=== PATIENT | female | born 1935 | race Caucasian/White ===

== ENCOUNTER 2017-06-01 12:24 | Observation (INO) | payer MEDICARE, MEDICAID ==
[2017-06-01 12:24] VITALS: BMI 20.1
[2017-06-01] MEDS ORDERED: Sodium Chloride 0.9% 500 ML IV STA ×2 (12:53→14:48)
--- NOTE | 2017-06-01 12:53 | ED PDOC ---
Hyperglycemia/Hypoglycemia Time Seen by Provider: 06/01/17 12:45 Chief Complaint (Nursing): High Blood Sugar Chief Complaint (Provider): High blood sugar History Per: Patient History/Exam Limitations: no limitations Onset/Duration Of Symptoms: Days (1 week) : The patient does not have any of the infectious symptoms listed except for those marked. Additional Complaint(s): Pt. with high blood sugar for 1 week. 1 week ago her managed care analyst reduced her januvia and increased the insulin. Since then the sugar has been elevated. Today it was 416 so she came to the ED. Had cough yesterday with clear phlegm. No dyspnea, weakness, headaches, dizziness, fever, chest pain, nausea, vomit, diarrhea, dysuria. No back pain. Chronically uses walker to move around as legs are weak. No increased urination or drinking more water. Past Medical History Reviewed: Nursing Documentation, Vital Signs Vital Signs: Last Vital Signs Temp 99 F 06/01/17 12:26 Pulse 64 06/01/17 12:26 Resp 20 06/01/17 12:26 BP 127/66 06/01/17 12:26 Pulse Ox 94 L 06/01/17 12:26 - Medical History PMH: Diabetes, HTN, Hypercholesterolemia Denies: HIV - Surgical History Surgical History: No Surg Hx - Family History Family History: States: Unknown Family Hx - Living Arrangements Living Arrangements: With Family - Social History Current smoker - smoking cessation education provided: No Alcohol: None Drugs: Denies - Home Medications Home Medications: Ambulatory Orders Medication Instructions Recorded Carvedilol [Coreg] 3.125 mg PO BID PRN 12/06/15 Furosemide [Lasix] 10 tab PO TUTHSA 12/06/15 Hydralazine HCl [Hydralazine HCl] 12.5 mg PO BID PRN 12/06/15 Insulin Glargine, Recombina 14 unit SC HS 12/06/15 [Lantus] Isosorbide Mononitrate [Imdur] 30 mg PO DAILY 12/06/15 Aspirin [Ecotrin] 81 mg PO DAILY 06/01/17 Cholecalciferol [Vitamin D 1000 IU] 1,000 unit PO DAILY 06/01/17 Ferrous Sulfate [Feosol] 325 mg PO MWF 06/01/17 Insulin Human Regular [Novolin R] 2 - 4 unit SC AC PRN 06/01/17 Megestrol Acetate [Megace] 10 ml PO DAILY 06/01/17 SITagliptin [Januvia] 100 mg PO DAILY 06/01/17 - Allergies Allergies/Adverse Reactions: Allergies Allergy/AdvReac Type Severity Reaction Status Date / Time ampicillin Allergy RASH Verified 12/06/15 06:03 Penicillins Allergy RASH Verified 12/06/15 06:03 Review of Systems ROS Statement: Except As Marked, All Systems Reviewed And Found Negative Respiratory: Positive for: Cough, Sputum Physical Exam - Reviewed Nursing Documentation Reviewed: Yes Vital Signs Reviewed: Yes - Physical Exam Appears: Positive for: Non-toxic, No Acute Distress Head Exam: Positive for: ATRAUMATIC, NORMAL INSPECTION, NORMOCEPHALIC Skin: Positive for: Normal Color, Warm, DRY Eye Exam: Positive for: EOMI, Normal appearance, PERRL ENT: Positive for: Normal ENT Inspection. Negative for: Nasal Congestion, Pharyngeal Erythema, Tonsillar Exudate Neck: Positive for: Normal, Painless ROM, Supple Cardiovascular/Chest: Positive for: Regular Rate, Rhythm Respiratory: Positive for: Normal Breath Sounds. Negative for: Accessory Muscle Use, Wheezing, Respiratory Distress Gastrointestinal/Abdominal: Positive for: Normal Exam, Bowel Sounds, Soft. Negative for: Tenderness Back: Positive for: Normal Inspection. Negative for: L CVA Tenderness, R CVA Tenderness Extremity: Positive for: Normal ROM. Negative for: Tenderness, Pedal Edema Neurologic/Psych: Positive for: Alert, fabricating machine operator II-XII, Oriented. Negative for: Motor/Sensory Deficits, Facial Droop - Laboratory Results Result Diagrams: 06/01/17 13:55 06/01/17 13:55 Interpretation Of Abn Labs: 15 wbc, 343 glucose, 93 chloride, 124 na - ECG ECG: Positive for: Interpreted By Me, Viewed By Me ECG Rhythm: Positive for: Nonspecific Changes O2 Sat by Pulse Oximetry: 94 - Radiology X-Ray: Read By Radiologist X-Ray Interpretation: No Acute Disease - Progress ED Course And Treament: 1554: Spoke with Dr. Montanez. Will admit tele. Pt. with clinical pneumonia. Similar presentation as last. Disposition - Clinical Impression Clinical Impression: Hyperglycemia, Pneumonia - Patient ED Disposition Is Patient to be Admitted: Yes Counseled Patient/Family Regarding: Studies Performed, Diagnosis - Disposition Disposition Time: 15:55 Condition: FAIR - Pt Status Changed To: Hospital Disposition Of: Inpatient - Admit Certification Admit to Inpatient:: After my assessment, the patient will require hospitalization for at least two midnights. This is because of the severity of symptoms shown, intensity of services needed, and/or the medical risk in this patient being treated as an outpatient. - POA Present On Arrival: Poor Glycemic Control Core Measure Indicators: Pneumonia
[2017-06-01 14:01] LABS: BASO # 0.1 K/uL (0.0-0.2); BASO % 0.9 % (0.0-2.0); EOS # 0.6 K/uL (0.0-0.7); EOS % 3.8 % (0.0-4.0); HEMOGLOBIN 12.3 g/dL (12.0-16.0); LYMPH # 2.5 K/uL (1.0-4.3); LYMPH % 16.8 % (20.0-40.0); MEAN CELL VOLUME 82.1 fl (81.0-99.0); MEAN CORPUSCULAR HEMOGLOBIN 26.6 pg (27.0-31.0); MEAN CORPUSCULAR HGB CONC 32.4 g/dL (33.0-37.0); MEAN PLATELET VOLUME 8.4 fl (7.2-11.7); MONO # 0.5 K/uL (0.0-0.8); MONO % 3.5 % (0.0-10.0); NEUT # 11.2 K/uL (1.8-7.0); RBC 4.64 Mil/uL (3.80-5.20); RED CELL DISTRIBUTION WIDTH 15.1 % (11.5-14.5)
[2017-06-01 14:12] LABS: ALB/GLOB RATIO 1.1 (1.0-2.1); ALBUMIN 3.5 g/dL (3.5-5.0); ALT/SGPT 35 U/L (9-52); AST/SGOT 19 U/L (14-36); BLOOD UREA NITROGEN 19 mg/dl (7-17); CALCIUM 9.2 mg/dL (8.4-10.2); GFR AFRICAN-AMERICAN > 60; GFR NON-AFRICAN AMERICAN 60
[2017-06-01 14:24] LABS: B-TYPE NATRIURETIC PEPTIDE 458 pg/ml (0-900)
--- NOTE | 2017-06-01 14:29 | RAD ---
HISTORY: dyspnea COMPARISON: No prior. FINDINGS: LUNGS: Note that the examination is slightly limited due to kyphotic patient positioning and/or kyphotic tube angulation. Poor inspiration with low lung volumes, crowded bronchovascular markings and mild bibasilar atelectasis. PLEURA: No significant pleural effusion identified, no pneumothorax apparent. CARDIOVASCULAR: Normal. OSSEOUS STRUCTURES: No significant abnormalities. VISUALIZED UPPER ABDOMEN: Normal. OTHER FINDINGS: None. IMPRESSION: Slightly limited study as described. Poor inspiration with low lung volumes, crowded bronchovascular markings and mild bibasilar atelectasis.
[2017-06-01] MEDS ORDERED: Aztreonam 1 GM in Sodium Chloride 0.9% 100 ML IVPB STA (14:49)
[2017-06-01] MEDS ORDERED: Vancomycin 1 g Inj ONE (15:01)
[2017-06-01] MEDS ORDERED: Albuterol-Ipratrop 3 mg / 0.5 (3 ml) UD INH STA (15:01)
[2017-06-01] MEDS ORDERED: Albuterol-Ipratrop 3 mg / 0.5 (3 ml) UD IH STA (15:01)
[2017-06-01 15:38] LABS: VENOUS BLOOD GAS BASE EXCESS 0.3 mmol/L (0.0-2.0); VENOUS BLOOD GAS PCO2 45 mmHg (40-60); VENOUS BLOOD GAS PO2 39 mm/Hg (30-55); VENOUS BLOOD PH 7.37 (7.32-7.43)
[2017-06-01] MEDS ORDERED: Albuterol-Ipratrop 3 mg / 0.5 (3 ml) UD ONE (15:44)
--- NOTE | 2017-06-01 16:14 | CP.PCM.HP ---
History of Present Illness - History of Present Illness History of Present Illness: Hospitalist Admission H&P ( Patient was seen and examined in the ER Bed #16 with Daughter Kandy [phone] present and who helped to translate in Georgian) PMD: Dr. Benitez CODE STATUS: DO NOT INTUBATE but Resuscitate. NO living well/advance directive. Designates Sara Gaitan [phone] as health care proxy and Kandy is also Power of Audio Visual Secretary CHIEF COMPLAINT: Cough and High Blood Sugars Very pleasant 81 year Georgian speaking female (PMHx: DM 2, HTN, Anemia, Pneumonia, Bowel Obstruction, Hyponatremia) who presents via ambulance with chief complaint of cough and high blood glucose. Daughter Kandy explains that patient kept on coughing last night and produced clear phlegm however was able to get to sleep and stay a sleep through the night. Then this morning she measured her fasting blood glucose at 462 (normally it is in the 150s fasting and 200s in the afternoons). Kandy explains that as patient had a similar episode in the past for which she was admitted to this institution from through 08/19/15 for pneumonia, she became concerned and called the ambulance to bring patient here. Currently upon FULL ROS there is NO chest pain, NO palpitations, NO SOB but there is complain of (+)Cough that is nonproductive, NO dysphagia/odynophagia, NO abdominal pain, NO n/v/d/c, NO burning/pain with urination, NO headache, NO new changes in vision/loss of vision/eye pain, NO new changes in hearing/ear pain/loss of hearing, NO paresthesias, NO edema PMHx: DM 2, HTN, Anemia, Pneumonia, Bowel Obstruction, Hyponatremia, Bowel Obstruction, Requires Walker at home to get around, Wears a Diaper but has control of bowel/bladder PSHx: Left Ankle Orthopedic Surgery with Hardware present, Colostomy with reversal for Bowel Obstruction (2010) ALL: Ampicillin, PCN Medications: Please see medical reconciliation Social Hx: Lives with , NO alcohol, NO tobacco, NO illicit drugs Family Hx: DM in multiple family members Present on Admission - Present on Admission Any Indicators Present on Admission: Yes History of DVT/PE: No History of Uncontrolled Diabetes: No Urinary Catheter: No Decubitus Ulcer Present: No (Checked with ER Nurse) Review of Systems - Review of Systems Review of Systems: Please see above Past Patient History - Infectious Disease Hx of Infectious Diseases: None - Past Medical History & Family History Past Medical History?: Yes Pertinent Family History: Please see above - Past Social History Alcohol: None Drugs: Denies - CARDIAC Hx Hypercholesterolemia: Yes Hx Hypertension: Yes - ENDOCRINE/METABOLIC Hx Diabetes Mellitus Type 2: Yes - HEMATOLOGICAL/ONCOLOGICAL Hx Human Immunodeficiency Virus (HIV): No - MUSCULOSKELETAL/RHEUMATOLOGICAL Hx Falls: No - GENITOURINARY/GYNECOLOGICAL Hx Incontinence: Yes - PSYCHIATRIC Hx Substance Use: No - SURGICAL HISTORY Hx Section: Yes Hx Cholecystectomy: Yes - ANESTHESIA Hx Anesthesia: Yes Hx Anesthesia Reactions: No Hx Malignant Hyperthermia: No Meds Allergies/Adverse Reactions: Allergies Allergy/AdvReac Type Severity Reaction Status Date / Time ampicillin Allergy RASH Verified 12/06/15 06:03 Penicillins Allergy RASH Verified 12/06/15 06:03 Physical Exam - Constitutional Appears: Non-toxic, No Acute Distress - Head Exam Head Exam: ATRAUMATIC, NORMAL INSPECTION, NORMOCEPHALIC - Eye Exam Eye Exam: EOMI, Normal appearance, PERRL Pupil Exam: NORMAL ACCOMODATION, PERRL - ENT Exam ENT Exam: Mucous Membranes Dry Additional comments: Oral Mucosa and Nasal Turbinates are dry Skin tenting of the arms NO lymphadenopathy NO thyromegaly NO pharyngeal erythema/exudate Nasal Turbinates are not erythematous/edematous - Neck Exam Neck exam: Positive for: Normal Inspection - Respiratory Exam Additional comments: Bilateral Lower Lobe Inspiratory Rales - Cardiovascular Exam Cardiovascular Exam: +S1, +S2, Systolic Murmur Additional comments: Early Systolic Ejection murmur heard in all of the brow[place] - GI/Abdominal Exam GI & Abdominal Exam: Normal Bowel Sounds, Soft Additional comments: BSx4, Soft, NT, ND, NO HSM, NO guarding/rebound tenderness - Extremities Exam Extremities exam: Positive for: normal capillary refill, normal inspection Additional comments: NO edema Capillary Refill is 2 seconds Pulses are strong and equal - Neurological Exam Neurological exam: CN II-XII Intact - Skin Additional comments: Multiple bruises in the bilateral lower arms and legs Venous insufficiency brown color change of the bilateral lower legs Multiple SKs on the face Right Cheek shallow circular ulcerated skin lesion present for many years as per Daughter Bridge of nose verrucous lesion also present for some time as per Daughter NO evidence of ulcers on any of the leola prominences/sacrum: checked with ER Nurse present Results - Vital Signs Recent Vital Signs: Last Vital Signs Temp 99 F 06/01/17 12:26 Pulse 64 06/01/17 12:26 Resp 20 06/01/17 12:26 BP 127/66 06/01/17 12:26 Pulse Ox 94 L 06/01/17 15:55 - Labs Result Diagrams: 06/01/17 13:55 06/01/17 13:55 Assessment & Plan (1) Pneumonia Assessment and Plan: Although not indicated in Chest X Ray (limited due to patient's kyphosis), I believe clinically this patient has Pneumonia Bilaterally considering the respiratory exam Aztreonam 1 gm IV Q8H Azithromycin 500 mg IV Q24H Duoneb Q6H PRN SOB Guaifenesin/Dextromethorphan 10 ml PO Q6H PRN cough F/U Blood Culture F/U Urine Culture F/U Rapid Influenza F/U Rapid Strep F/U Urine Legionell Ag F/U Urine S. pneumoniae Ag F/U Mycoplasma IgG and IgM Status: Acute (2) Hyperglycemia due to type 2 diabetes mellitus Assessment and Plan: Patient had Blood Glucose in the 400s upon arrival in the ER There was NO acidosis Continuie home dose of Lantus 14 units SC QHS, Januvia 100 mg PO 1x/day (AM) Regular Insulin Sliding Scale High Dose with Accuchecks F/U HgBA1C Status: Acute (3) Hyponatremia Assessment and Plan: Currently Na at 124 She is not any on medications that could cause this Considering the dry mucous membranes and skin tenting could be secondary to volume depletion Therefore hydrate with NS at 50 ml per hour and follow Na level with morning labs for now Status: Acute (4) Hypertension Assessment and Plan: Coreg 3.125 mg PO 2x/day Hydralazine 12.5 mg PO 2x/day Imdur 30 mg PO 1x/day Status: Chronic (5) Anemia Assessment and Plan: Hx Anemia likely secondary to Iron Deficiency considering RBC indices Continue Ferrous Sulfate 325 mg PO Monitor HgB/Hct which is currently WNL Status: Chronic (6) Prophylactic measure Assessment and Plan: ASA 81 mg PO 1x/day Megace 10 mg PO 1x/day Vitamin D3 1,000 units PO 1x/day Protonix 40 mg PO 1x/day Lovenox 30 mg SC 1x/day Florastor 250 mg PO 2x/day F/U morning 06/02/17 labs Status: Acute
[2017-06-01] MEDS ORDERED: Albuterol-Ipratrop 3 mg / 0.5 (3 ml) UD INH PRN (16:15)
[2017-06-01] MEDS ORDERED: guaiFENesin DM 200 mg-20 mg/10 ml UD PO PRN (16:20)
[2017-06-01] MEDS ORDERED: Sodium Chloride 0.9% 1,000 ML IV SCH (16:30)
[2017-06-01] MEDS: Insulin Regular 100 units/ml SC SCH ×2 (16:40→22:04)
[2017-06-01] MEDS: Azithromycin 500 MG in Sodium Chloride 0.9% 250 ML IVPB SCH (20:38)
[2017-06-01] MEDS ORDERED: Pneumococcal 23-Valent Vaccine IM ONE (21:00)
[2017-06-01] MEDS: Saccharomyces Boulardi 250 mg Cap PO SCH (22:00)
[2017-06-01] MEDS ORDERED: Insulin Detemir 100 Units/ml Inj SC SCH (22:00)
[2017-06-02] MEDS: Aztreonam 1 GM in Sodium Chloride 0.9% 100 ML IVPB SCH ×2 (00:37→06:34)
[2017-06-02] MEDS: Insulin Regular 100 units/ml SC SCH ×2 (06:35→11:57)
[2017-06-02 07:03] LABS: BASO % 0.1 % (0.0-2.0); EOS % 0.2 % (0.0-4.0); HEMOGLOBIN 13.5 g/dL (12.0-16.0); LYMPH # 1.7 K/uL (1.0-4.3); LYMPH % 12.3 % (20.0-40.0); MEAN CELL VOLUME 82.8 fl (81.0-99.0); MEAN CORPUSCULAR HEMOGLOBIN 26.8 pg (27.0-31.0); MEAN CORPUSCULAR HGB CONC 32.4 g/dL (33.0-37.0); MEAN PLATELET VOLUME 8.3 fl (7.2-11.7); MONO # 0.2 K/uL (0.0-0.8); MONO % 1.6 % (0.0-10.0); NEUT # 11.7 K/uL (1.8-7.0); NEUT % 85.8 % (50.0-75.0); RBC 5.02 Mil/uL (3.80-5.20); RED CELL DISTRIBUTION WIDTH 15.5 % (11.5-14.5); WHITE BLOOD COUNT 13.6 K/uL (4.8-10.8)
[2017-06-02 07:06] LABS: ALB/GLOB RATIO 1.1 (1.0-2.1); ALBUMIN 3.9 g/dL (3.5-5.0); ALT/SGPT 34 U/L (9-52); AST/SGOT 21 U/L (14-36); BLOOD UREA NITROGEN 18 mg/dl (7-17); CALCIUM 9.5 mg/dL (8.4-10.2); GFR AFRICAN-AMERICAN > 60; GFR NON-AFRICAN AMERICAN > 60; HDL CHOLESTEROL 62 MG/DL (30-70); MAGNESIUM 1.7 MG/DL (1.6-2.3)
[2017-06-02 07:17] LABS: LDL CHOLESTEROL 103 mg/dL (0-129)
[2017-06-02 07:23] LABS: T4 9.12 ug/dl (5.5-11.0)
--- NOTE | 2017-06-02 08:52 | CP.PCM.DIS ---
Provider - Provider Date of Admission: 06/01/17 15:55 Attending physician: Eliseo Montanez MD Primary care physician: Dr. Samson Time Spent in preparation of Discharge (in minutes): 20 Hospital Course - Lab Results Lab Results: Most Recent Lab Values WBC 13.6 K/uL (4.8-10.8) H 06/02/17 05:30 RBC 5.02 Mil/uL (3.80-5.20) 06/02/17 05:30 Hgb 13.5 g/dL (12.0-16.0) 06/02/17 05:30 Hct 41.6 % (34.0-47.0) 06/02/17 05:30 MCV 82.8 fl (81.0-99.0) 06/02/17 05:30 MCH 26.8 pg (27.0-31.0) L 06/02/17 05:30 MCHC 32.4 g/dL (33.0-37.0) L 06/02/17 05:30 RDW 15.5 % (11.5-14.5) H 06/02/17 05:30 Plt Count 272 K/uL (130-400) 06/02/17 05:30 MPV 8.3 fl (7.2-11.7) 06/02/17 05:30 Neut % (Auto) 85.8 % (50.0-75.0) H 06/02/17 05:30 Lymph % (Auto) 12.3 % (20.0-40.0) L 06/02/17 05:30 [place] % (Auto) 1.6 % (0.0-10.0) 06/02/17 05:30 Eos % (Auto) 0.2 % (0.0-4.0) 06/02/17 05:30 Baso % (Auto) 0.1 % (0.0-2.0) 06/02/17 05:30 Neut # 11.7 K/uL (1.8-7.0) H 06/02/17 05:30 Lymph # 1.7 K/uL (1.0-4.3) 06/02/17 05:30 [place] # 0.2 K/uL (0.0-0.8) 06/02/17 05:30 Eos # 0.0 K/uL (0.0-0.7) 06/02/17 05:30 Baso # 0.0 K/uL (0.0-0.2) 06/02/17 05:30 pO2 39 mm/Hg (30-55) 06/01/17 15:36 VBG pH 7.37 (7.32-7.43) 06/01/17 15:36 VBG pCO2 45 mmHg (40-60) 06/01/17 15:36 VBG HCO3 24.6 mmol/L 06/01/17 15:36 VBG Total CO2 27.4 mmol/L (22-28) 06/01/17 15:36 VBG O2 Sat (Calc) 78.9 % (40-65) H 06/01/17 15:36 VBG Base Excess 0.3 mmol/L (0.0-2.0) 06/01/17 15:36 VBG Potassium 4.5 mmol/L (3.6-5.2) 06/01/17 15:36 Sodium 126.0 mmol/L (132-148) L 06/01/17 15:36 Chloride 96.0 mmol/L (98-107) L 06/01/17 15:36 Glucose 275 mg/dL (65-105) H 06/01/17 15:36 Lactate 1.1 mmol/L (0.7-2.1) 06/01/17 15:36 FiO2 21.0 % 06/01/17 15:36 Sodium 134 mmol/l (132-148) 06/02/17 05:30 Potassium 4.6 MMOL/L (3.6-5.0) 06/02/17 05:30 Chloride 100 mmol/L (98-107) 06/02/17 05:30 Carbon Dioxide 22 mmol/L (22-30) 06/02/17 05:30 Anion Gap 17 (10-20) 06/02/17 05:30 BUN 18 mg/dl (7-17) H 06/02/17 05:30 Creatinine 0.7 mg/dL (0.7-1.2) 06/02/17 05:30 Est GFR ( Amer) > 60 06/02/17 05:30 Est GFR (Non-Af Amer) > 60 06/02/17 05:30 POC Glucose (mg/dL) 261 mg/dL (65-110) H 06/02/17 05:46 Random Glucose 241 mg/dL (65-105) H 06/02/17 05:30 Calcium 9.5 mg/dL (8.4-10.2) 06/02/17 05:30 Phosphorus 3.5 mg/dl (2.5-4.5) 06/02/17 05:30 Magnesium 1.7 MG/DL (1.6-2.3) 06/02/17 05:30 Total Bilirubin 0.4 mg/dl (0.2-1.3) 06/02/17 05:30 AST 21 U/L (14-36) 06/02/17 05:30 ALT 34 U/L (9-52) 06/02/17 05:30 Alkaline Phosphatase 115 U/L (38-126) 06/02/17 05:30 Troponin I < 0.0120 ng/mL (0.00-0.120) 06/01/17 13:55 NT-Pro-B Natriuret Pep 458 pg/ml (0-900) 06/01/17 13:55 Total Protein 7.7 G/DL (6.3-8.2) 06/02/17 05:30 Albumin 3.9 g/dL (3.5-5.0) 06/02/17 05:30 Globulin 3.7 gm/dL (2.2-3.9) 06/02/17 05:30 Albumin/Globulin Ratio 1.1 (1.0-2.1) 06/02/17 05:30 Triglycerides 60 mg/DL (0-149) 06/02/17 05:30 Cholesterol 191 mg/dL (0-199) 06/02/17 05:30 LDL Cholesterol Direct 103 mg/dL (0-129) 06/02/17 05:30 HDL Cholesterol 62 MG/DL (30-70) 06/02/17 05:30 Thyroxine (T4) 9.12 ug/dl (5.5-11.0) 06/02/17 05:30 TSH 3rd Generation 0.39 mIU/ML (0.46-4.68) L 06/02/17 05:30 Venous Blood Potassium 4.5 mmol/L (3.6-5.2) 06/01/17 15:36 Influenza Typ A,B (EIA) Negative for flu a/b (NEGATIVE) 06/01/17 17:50 Grp A Beta Strep Ag Negative (NEGATIVE) 06/01/17 17:50 - Hospital Course Hospital Course: 81 y/o female with PMH significant for DM2 and HTN came in with fasting BS 462 .Per family her BS have been high for the past week since her januvia was decreased and insulin regiment increased by caregiver.As per daughter she had some cough with chest congestion last night with clear phlegm production . She was found to have elevated WBC 15 K Na 124 . CXR showed increased Poor inspiration with low lung volumes, crowded bronchovascular markings and mild bibasilar atelectasis. She was admitted in telemetry with diagnosis of clinical pneumonia , uncontrolled DM and hyponatremia. She was started on IV Zithromax, Azactam , O2 , mucinex. Patient today feeling better and wants to go home. Her Accuchecks better controlled Acc 260 , 241 .She is afebrile , her BP slightly elevated because her Bp meds were not given . Her hyponatremia improved. Patient clinically improved , afebrile, WBC trended down 13.6 , denies any dyspnea or cough. Will discharge patient home on Po [place] for 7 days will increase Lantus to 18 units SQ from 14 units . continue BP meds the same. Patient to follow up with PMD She has home health aid services Wednesday - Wednesday 5 hours / day and Wednesday and wednesday 7 hours 1.Suspected Pneumonia CXR showed crowded bronchovascular markings with some chest congestion and cough WBC was elevated 15 K Given Azactam and Zithromax IV . will d/c on levaquine PO 2.Hyperglycemia due to type 2 diabetes mellitus Patient had Blood Glucose in the 462 There was NO acidosis Given IVF will increase Lantus to 18 units SQ and januvia 100 mg Po daily 3. Hyponatremia Most likely secondary to volume depletion and dehydration Currently Na at 124 given IVF and improved 4. Hypertension labile continue Coreg and hydralazine Coreg 3.125 mg PO 2x/day 5. Anemia Hx Anemia likely secondary to Iron Deficiency considering RBC indices Continue Ferrous Sulfate 325 mg PO -- Discharge Exam - Head Exam Head Exam: ATRAUMATIC, NORMAL INSPECTION, NORMOCEPHALIC - Eye Exam Eye Exam: EOMI, Normal appearance, PERRL Pupil Exam: NORMAL ACCOMODATION - ENT Exam ENT Exam: Normal Exam - Neck Exam Neck exam: Full Rom, Normal Inspection - Respiratory Exam Respiratory Exam: Clear to PA & Lateral, NORMAL BREATHING PATTERN. absent: Rhonchi, Wheezes, Respiratory Distress - Cardiovascular Exam Cardiovascular Exam: REGULAR RHYTHM, RRR, +S1, +S2. absent: JVD - GI/Abdominal Exam GI & Abdominal Exam: Normal Bowel Sounds, Soft. absent: Distended, Guarding, Rebound, Tenderness - Rectal Exam Rectal Exam: Deferred - Extremities Exam Extremities exam: normal capillary refill, normal inspection, pedal pulses present - Back Exam Back exam: NORMAL INSPECTION - Neurological Exam Neurological exam: Alert, CN II-XII Intact, Oriented x3, Reflexes Normal - Psychiatric Exam Psychiatric exam: Normal Affect, Normal Mood - Skin Skin Exam: Dry, Pallor, Warm Additional comments: nasal bridge verrucous lesion left frontal melanoma Bilateral lower extremity multiple echymotic areas Discharge Plan - Discharge Medications Prescriptions: levoFLOXacin [Levaquin] 500 mg PO DAILY #7 tab - Follow Up Plan Condition: STABLE Disposition: HOME/ ROUTINE Patient education suggested?: Yes Instructions: Diabetic Hyperglycemia (DC)
[2017-06-02] MEDS ORDERED: Pantoprazole 40 mg EC Tab PO SCH (09:00)
[2017-06-02] MEDS ORDERED: Enoxaparin 30 mg Syringe SC SCH (09:00)
[2017-06-02] MEDS ORDERED: Megestrol Acetate 40 mg/ml Cup PO SCH (09:00)
[2017-06-02] MEDS: Saccharomyces Boulardi 250 mg Cap PO SCH (09:41)
[2017-06-02] MEDS: Azithromycin 500 MG in Sodium Chloride 0.9% 250 ML IVPB SCH (09:51)
--- NOTE | 2017-06-02 11:38 | CARD ---
APPROVED REPORT EKG Measurement Heart [id number] <Conclusion> Ventricular-paced rhythm with frequent premature ventricular complexes with junctional escape complexes Abnormal ECG
[2017-06-02 12:32] VITALS: BP 111/69; PULSE 78; RESP 20; TEMP 96.9; O2SAT 95
== END 2017-06-02 14:19 | disposition home or self-care (01) ==
LOC: H.ER 12:24 → INTOOBSV 15:55 → H.ERHOLD 15:55 → H.TEL 17:26
PROVIDERS: ADMIT Family Medicine; ATTEND Family Medicine
DX: J18.9 Pneumonia, unspecified organism (principal); E87.1 Hypo-osmolality and hyponatremia; E11.65 Type 2 diabetes mellitus with hyperglycemia; I10 Essential (primary) hypertension; E78.00 Pure hypercholesterolemia, unspecified; E86.0 Dehydration; D50.9 Iron deficiency anemia, unspecified; Z23 Encounter for immunization; Z88.0 Allergy status to penicillin; Z79.4 Long term (current) use of insulin; Z79.82 Long term (current) use of aspirin
CPT/HCPCS: 36415; 71010; 80053; 80061; 82803; 82948; 83036; 83735; 83880; 84100; 84436; 84443; 84484; 85025; 86738; 87040; 87070; 87086; 87430; 87449; 87804; 87899; 90732; 93005; 96361; 96365; 96375; 99285; G0009; G0378; J0456; J1650; J2930; J7040; J7050

== ENCOUNTER 2018-09-15 14:31 | Inpatient (IN) | payer MEDICARE, MEDICAID ==
[2018-09-15 14:32] VITALS: BMI 20.1
--- NOTE | 2018-09-15 15:01 | ED PDOC ---
HPI: General Adult Time Seen by Provider: 09/15/18 14:59 Chief Complaint (Nursing): Trauma Chief Complaint (Provider): fall/ankle injury History Per: Patient (83 y/o female mostly in home dwelling here with family for evaluation of fall noted yesterday. per patient felt legs get weak under her and he helped her to the ground. No head injury. Notes swelling/ bruising of right ankle.) Past Medical History Reviewed: Historical Data, Nursing Documentation, Vital Signs Vital Signs: Last Vital Signs Temp 96.9 F L 09/15/18 14:33 Pulse 77 09/15/18 14:33 Resp 18 09/15/18 14:33 BP 154/68 H 09/15/18 14:33 Pulse Ox 96 09/15/18 14:33 - Medical History PMH: Dementia, Diabetes, Fractures, HTN, Hypercholesterolemia, Osteoporosis Denies: HIV - Surgical History Surgical History: Cholecystectomy - Family History Family History: States: Unknown Family Hx - Home Medications Home Medications: Ambulatory Orders Medication Instructions Recorded Carvedilol [Coreg] 3.125 mg PO BID PRN 12/06/15 Furosemide [Lasix] 10 tab PO TUTHSA 12/06/15 Hydralazine HCl 12.5 mg PO BID PRN 12/06/15 Isosorbide Mononitrate ER [Imdur 30 mg PO DAILY 12/06/15 ER] Aspirin [Ecotrin] 81 mg PO DAILY 06/01/17 Cholecalciferol [Vitamin D 1000 IU] 1,000 unit PO DAILY 06/01/17 Ferrous Sulfate [Feosol] 325 mg PO MWF 06/01/17 Insulin Human Regular [Novolin R] 2 - 4 unit SC AC PRN 06/01/17 Megestrol Acetate [Megace] 10 ml PO DAILY 06/01/17 SITagliptin [Januvia] 100 mg PO DAILY 06/01/17 Insulin Glargine, Recombina 18 unit SC HS #0 06/02/17 [Lantus] levoFLOXacin [Levaquin] 500 mg PO DAILY #7 tab 06/02/17 - Allergies Allergies/Adverse Reactions: Allergies Allergy/AdvReac Type Severity Reaction Status Date / Time ampicillin Allergy RASH Verified 09/15/18 14:32 Penicillins Allergy RASH Verified 09/15/18 14:32 Review of Systems ROS Statement: Except As Marked, All Systems Reviewed And Found Negative Musculoskeletal: Positive for: Other (ankle injury right) Physical Exam - Reviewed Nursing Documentation Reviewed: Yes Vital Signs Reviewed: Yes - Physical Exam Appears: Positive for: Well, Non-toxic, No Acute Distress Head Exam: Positive for: ATRAUMATIC, NORMAL INSPECTION, NORMOCEPHALIC Skin: Positive for: Normal Color, Warm, DRY Eye Exam: Positive for: EOMI, Normal appearance, PERRL ENT: Positive for: Normal ENT Inspection Neck: Positive for: Normal, Painless ROM Cardiovascular/Chest: Positive for: Regular Rate, Rhythm Respiratory: Positive for: CNT, Normal Breath Sounds Gastrointestinal/Abdominal: Positive for: Normal Exam, Soft Back: Positive for: Normal Inspection Extremity: Positive for: Normal ROM, Swelling, Other (ecchymosis right ankle.) Neurologic/Psych: Positive for: Alert, Oriented - Laboratory Results Result Diagrams: 09/15/18 15:15 09/15/18 15:15 - ECG O2 Sat by Pulse Oximetry: 96 - Progress ED Course And Treament: ekg: LBBB no acute findings xry of tib-fib: fx of tib fib noted. d/w podiatry resident seen and splinted by resident ns 500ml 66 ml per hour sodium 126 cxr: no obvious chf d/w Dr. Aguila. Medical Decision Making Medical Decision Makin:[address] FINDINGS: HEMORRHAGE: No intracranial hemorrhage. BRAIN: Diffuse atrophy with prominence of the ventricles and sulci noted. No mass effect or edema. Intracranial atherosclerosis. Scattered periventricular and subcortical white matter hypodensities, which are nonspecific, but often seen with chronic microvascular ischemic disease. Please note that MRI with diffusion imaging is more sensitive in the detection of acute ischemic event. VENTRICLES: No hydrocephalus. CALVARIUM: Unremarkable. PARANASAL SINUSES: Unremarkable as visualized. No significant inflammatory changes. MASTOID AIR CELLS: Unremarkable as visualized. No inflammatory changes. OTHER FINDINGS: None. IMPRESSION: Generalized atrophy. Nonspecific white matter changes. Disposition - Clinical Impression Clinical Impression: Ankle fracture, right, Hyponatremia, Near syncope - Patient ED Disposition Is Patient to be Admitted: No - Disposition Disposition Time: 19:27 Condition: FAIR - Pt Status Changed To: Hospital Disposition Of: Observation
[2018-09-15 16:05] LABS: BASO # 0.1 K/uL (0.0-0.2); BASO % 0.6 % (0.0-2.0); EOS # 0.6 K/uL (0.0-0.7); EOS % 5.2 % (0.0-4.0); HEMOGLOBIN 12.2 g/dL (12.0-16.0); LYMPH # 2.4 K/uL (1.0-4.3); LYMPH % 19.6 % (20.0-40.0); MEAN CELL VOLUME 82.4 fl (81.0-99.0); MEAN CORPUSCULAR HEMOGLOBIN 26.4 pg (27.0-31.0); MEAN CORPUSCULAR HGB CONC 32.1 g/dL (33.0-37.0); MEAN PLATELET VOLUME 8.1 fl (7.2-11.7); MONO # 0.8 K/uL (0.0-0.8); MONO % 6.5 % (0.0-10.0); NEUT # 8.2 K/uL (1.8-7.0); NEUT % 68.1 % (50.0-75.0); NRBC % 0.1 % (0.0-0.0); RBC 4.63 Mil/uL (3.80-5.20); RED CELL DISTRIBUTION WIDTH 15.9 % (11.5-14.5); WHITE BLOOD COUNT 12.1 K/uL (4.8-10.8)
[2018-09-15 16:10] LABS: ALB/GLOB RATIO 0.9 (1.0-2.1); ALBUMIN 3.2 g/dL (3.5-5.0)
[2018-09-15 16:21] LABS: TROPONIN I 0.035 ng/mL (0.00-0.120)
[2018-09-15 16:40] LABS: CALCIUM 9.1 mg/dL (8.4-10.2)
[2018-09-15] MEDS ORDERED: Sodium Chloride 0.9% 500 ML IV ONE (16:45)
--- NOTE | 2018-09-15 18:48 | CT ---
Date of service: 09/15/2018 PROCEDURE: CT HEAD WITHOUT CONTRAST. HISTORY: near syncope COMPARISON: None available. TECHNIQUE: Axial computed tomography images were obtained through the head/brain without intravenous contrast. Radiation dose: Total exam DLP = 835.18 mGy-cm. This CT exam was performed using one or more of the following dose reduction techniques: Automated exposure control, adjustment of the mA and/or kV according to patient size, and/or use of iterative reconstruction technique. FINDINGS: HEMORRHAGE: No intracranial hemorrhage. BRAIN: Diffuse atrophy with prominence of the ventricles and sulci noted. No mass effect or edema. Intracranial atherosclerosis. Scattered periventricular and subcortical white matter hypodensities, which are nonspecific, but often seen with chronic microvascular ischemic disease. Please note that MRI with diffusion imaging is more sensitive in the detection of acute ischemic event. VENTRICLES: No hydrocephalus. CALVARIUM: Unremarkable. PARANASAL SINUSES: Unremarkable as visualized. No significant inflammatory changes. MASTOID AIR CELLS: Unremarkable as visualized. No inflammatory changes. OTHER FINDINGS: None. IMPRESSION: Generalized atrophy. Nonspecific white matter changes.
--- NOTE | 2018-09-16 08:39 | RAD ---
Date of service: 09/15/2018 HISTORY: weakness COMPARISON: Frontal chest radiograph 06/01/2017. FINDINGS: LUNGS: No active pulmonary disease. Limited linear fibrotic changes reiterated left base. PLEURA: No significant pleural effusion identified, no pneumothorax apparent. CARDIOVASCULAR: Calcific atherosclerotic changes are seen related to the thoracic aorta. Normal cardiac size. No pulmonary vascular congestion. OSSEOUS STRUCTURES: No significant abnormalities. VISUALIZED UPPER ABDOMEN: Normal. OTHER FINDINGS: None. IMPRESSION: No interval acute cardiopulmonary disease appreciated. Limited fibrotic changes remain at the left base.
--- NOTE | 2018-09-16 08:47 | RAD ---
Date of service: 09/15/2018 PROCEDURE: Right Ankle Radiographs. HISTORY: ankle injury COMPARISON: None available. FINDINGS: BONES: There is an oblique fracture identified at the upper lateral malleolus with minimal lateral distraction of the major fracture fragment. Diffuse osteopenia suggests osteoporosis. There is a likely chronic ununited fracture related to the medial malleolus best seen in the right foot radiographs also performed 09/15/2018. No soft tissue edema overlies the medial malleolus and acute fracture is not favored here. Limited anterior malleolar chip/avulsion fracture suggested. JOINTS: Cortical sclerosis appreciate throughout the ankle and hindfoot joints diffusely, compatible with degenerative joint disease. No subluxation or dislocation identified. Talar dome is intact. Ankle mortise is grossly intact. SOFT TISSUES: Lateral malleolar soft tissue edema is appreciated with limited extension anteriorly. OTHER FINDINGS: None. IMPRESSION: 1. Oblique fracture upper lateral malleolus with limited lateral distraction. No dislocation throughout the ankle. Limited chip/avulsion fracture anterior malleolus suggested. 2. 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 No associated soft tissue edema. Clinically correlate here. 3. Degenerative joint disease as per above. 4. Diffuse osteopenia suggests osteoporosis.
--- NOTE | 2018-09-16 08:50 | RAD ---
Date of service: 09/15/2018 PROCEDURE: Right Foot Radiographs. HISTORY: foot injury COMPARISON: None. FINDINGS: BONES: No acute displaced fracture identified throughout the right foot. Diffuse osteopenia suggests osteoporosis throughout. Note is made of likely chronic ununited medial malleolar fracture with lateral malleolar fracture better seen in dedicated right ankle radiograph series performed 09/15/2018, see separate report. JOINTS: Articular cortical sclerosis is moderate throughout the forefoot midfoot and hindfoot joints diffusely with limited joint space narrowing compatible with osteoarthritis. No subluxation or dislocation. SOFT TISSUES: Normal. OTHER FINDINGS: None. IMPRESSION: 1. No acute fracture or dislocation identified involving the right foot. Diffuse osteopenia suggests osteoporosis limiting the evaluation. 2. Chronic ununited medial malleolar fracture a favored over acute fracture. Acute lateral malleolar fracture better seen in prior right ankle radiographs 09/15/2018, please see separate report.
[2018-09-16] MEDS: Insulin Regular 100 units/ml SC SCH ×4 (09:00→22:43)
--- NOTE | 2018-09-16 10:00 | CP.PCM.CON ---
History of Present Illness - History of Present Illness History of Present Illness: Podiatry consult note for Dr. Mcconnell 83F with pmhx of Dementia, Diabetes, Fractures, HTN, Hypercholesterolemia, Osteoporosis seen and evaluated in the ED for right ankle pain. She presents with her and daughter. States that she fell in her home and twister her ankle. States that her was able to help her down but she was unable to stand back up and was in a lot of pain. States she noticed swelling and bruising to the ankle. States she had injured her other ankle a long time ago and that hardware was used to repair it. Denies N/V/F/C/SOB/CP and has no other pedal complaints today. PMHx - Dementia, Diabetes, Fractures, HTN, Hypercholesterolemia, Osteoporosis PSHx - Cholecystectomy All - penicillins Past Patient History - Infectious Disease Hx of Infectious Diseases: None - Past Medical History & Family History Past Medical History?: Yes - Past Social History Smoking Status: Never Smoked - CARDIAC Hx Cardiac Disorders: Yes (high cholesterol. HTN) Hx Congestive Heart Failure: Yes Hx Hypercholesterolemia: Yes - PULMONARY Hx Respiratory Disorders: No - NEUROLOGICAL Hx Neurological Disorder: Yes Hx Dementia: Yes - HEENT Hx HEENT Problems: No - RENAL Hx Chronic Kidney Disease: No - ENDOCRINE/METABOLIC Hx Endocrine Disorders: Yes (DM) Hx Diabetes Mellitus Type 2: Yes - HEMATOLOGICAL/ONCOLOGICAL Hx Blood Disorders: No Hx AIDS: No Hx Human Immunodeficiency Virus (HIV): No - INTEGUMENTARY Hx Dermatological Problems: No - MUSCULOSKELETAL/RHEUMATOLOGICAL Hx Musculoskeletal Disorders: Yes Hx Falls: Yes Hx Fractures: Yes Hx Osteoporosis: Yes - GASTROINTESTINAL Hx Gastrointestinal Disorders: Yes Hx Colostomy: Yes Other/Comment: hx of bowel obstruction - GENITOURINARY/GYNECOLOGICAL Hx Genitourinary Disorders: Yes Hx Incontinence: Yes - PSYCHIATRIC Hx Psychophysiologic Disorder: No Hx Substance Use: No - SURGICAL HISTORY Hx Surgeries: Yes Hx Cholecystectomy: Yes - ANESTHESIA Hx Anesthesia: Yes Hx Anesthesia Reactions: No Hx Malignant Hyperthermia: No Meds Allergies/Adverse Reactions: Allergies Allergy/AdvReac Type Severity Reaction Status Date / Time ampicillin Allergy RASH Verified 09/15/18 14:32 Penicillins Allergy RASH Verified 09/15/18 14:32 - Medications Medications: Current Medications Aspirin (Ecotrin) 81 mg PO DAILY [facility] Carvedilol (Coreg) 3.125 mg PO BID PRN PRN Reason: BP >140/80 Cholecalciferol (Vitamin D) 1,000 intlu PO DAILY [facility] Ferrous Sulfate (Feosol) 325 mg PO MWF [facility] Furosemide (Lasix) 10 mg PO DAILY [facility] Insulin Detemir (Levemir) 24 units SC HS [facility] Insulin Human Regular (Humulin R) 0 units SC ACCU-CHECK [facility]; Protocol Isosorbide Mononitrate (Imdur Er) 30 mg PO DAILY [facility] Sitagliptin Phosphate (Januvia) 100 mg PO DAILY [facility] Physical Exam - Constitutional Appears: Well, Non-toxic, No Acute Distress - Head Exam Head Exam: ATRAUMATIC, NORMOCEPHALIC - Extremities Exam Additional comments: RLE focused Vasc: DP and PT pulses palpable; cap refill <3 seconds to all digits; temp gradient warm to cool from proximal to distal; edema noted at the ankle M>L Derm: no open wounds or lesions noted; skin temp and turgor normal; ecchymosis present at the medial ankle Ortho: pain on palpation at the ankle M>L; muscle testing and ROM unattainable due to guarding and pain Neuro: gross and protective sensation intact - Neurological Exam Neurological exam: Alert, Oriented x3 - Psychiatric Exam Psychiatric exam: Normal Affect, Normal Mood Results - Vital Signs Recent Vital Signs: Last Vital Signs Temp 97.9 F 09/16/18 08:00 Pulse 86 09/16/18 08:00 Resp 18 09/16/18 08:00 BP 134/73 09/16/18 08:00 Pulse Ox 97 09/16/18 08:00 - Labs Result Diagrams: 09/15/18 15:15 09/15/18 15:15 Labs: Laboratory Results - last 24 hr 09/15/18 09/15/18 09/15/18 14:55 15:15 15:15 WBC 12.1 H RBC 4.63 Hgb 12.2 Hct 38.1 MCV 82.4 MCH 26.4 L MCHC 32.1 L RDW 15.9 H Plt Count 310 MPV 8.1 Neut % (Auto) 68.1 Lymph % (Auto) 19.6 L [place] % (Auto) 6.5 Eos % (Auto) 5.2 H Baso % (Auto) 0.6 Neut # (Auto) 8.2 H Lymph # (Auto) 2.4 [place] # (Auto) 0.8 Eos # (Auto) 0.6 Baso # (Auto) 0.1 Sodium 127 L Potassium 4.9 Chloride 94 L Carbon Dioxide 22 Anion Gap 16 BUN 23 H Creatinine 1.1 Est GFR ( Amer) 57 Est GFR (Non-Af Amer) 47 POC Glucose (mg/dL) 262 H Random Glucose 251 H Calcium 9.1 Total Bilirubin 0.4 AST 31 ALT 19 Alkaline Phosphatase 99 Troponin I 0.0350 NT-Pro-B Natriuret Pep Total Protein 6.7 Albumin 3.2 L Globulin 3.6 Albumin/Globulin Ratio 0.9 L 09/15/18 09/15/18 09/16/18 18:45 20:43 05:08 WBC RBC Hgb Hct MCV MCH MCHC RDW Plt Count MPV Neut % (Auto) Lymph % (Auto) [place] % (Auto) Eos % (Auto) Baso % (Auto) Neut # (Auto) Lymph # (Auto) [place] # (Auto) Eos # (Auto) Baso # (Auto) Sodium Potassium Chloride Carbon Dioxide Anion Gap BUN Creatinine Est GFR ( Amer) Est GFR (Non-Af Amer) POC Glucose (mg/dL) 192 H 100 Random Glucose Calcium Total Bilirubin AST ALT Alkaline Phosphatase Troponin I NT-Pro-B Natriuret Pep 1010 H Total Protein Albumin Globulin Albumin/Globulin Ratio Assessment & Plan - Assessment and Plan (Free Text) Assessment: 83F pmhx Dementia, Diabetes, Fractures, HTN, Hypercholesterolemia, Osteoporosis with right nondisplaced ankle fracture Plan: Patient seen and evaluated Discussed in detail with Dr. Mcconnell Right ankle x-ray reviewed - tib fib fracture, nondisplaced; degenerative joint disease and osteoporosis Instructed to remain nonweightbearing and educated on RICE protocol Extra strength tylenol for pain management and inflammation Family aware and willing to assist in recovery Light Cano compression and posterior splint with heel cup applied to patient Thank you for the consult, patient will follow up as outpatient in podiatry cl inic at [facility] and will have serial x-rays taken to evaluated progression of healing - Date & Time Date: 09/15/18 Time: 16:40
[2018-09-16 10:50] LABS: HEMOGLOBIN 12.1 g/dL (12.0-16.0); MEAN CELL VOLUME 81.7 fl (81.0-99.0); MEAN CORPUSCULAR HEMOGLOBIN 27.1 pg (27.0-31.0); MEAN CORPUSCULAR HGB CONC 33.2 g/dL (33.0-37.0); RBC 4.47 Mil/uL (3.80-5.20)
[2018-09-16] MEDS: Cholecalciferol 1,000 INTLU TAB PO SCH (11:10)
[2018-09-16 11:15] LABS: ALB/GLOB RATIO 0.9 (1.0-2.1); ALBUMIN 3.2 g/dL (3.5-5.0); ALT/SGPT 21 U/L (9-52); AST/SGOT 19 U/L (14-36); BLOOD UREA NITROGEN 17 mg/dl (7-17); CALCIUM 8.9 mg/dL (8.4-10.2); GFR NON-AFRICAN AMERICAN > 60
--- NOTE | 2018-09-16 11:28 | CP.PCM.CON ---
History of Present Illness - History of Present Illness History of Present Illness: This 83-year-old female came to the emergency room after she suddenly became weak and sleepy the floor supported by her after visiting the emergency room. She never actually had a fall and never lost consciousness. The patient has mostly been in bed and chair bound and uses a walker to use the bathroom and otherwise is in a wheelchair. She is a long- standing diabetic and has had an injury to the left ankle which has been surgically repaired more than 8 years back. There is no history of a myocardial infarction or history suggestive of congestive cardiac failure. There is no prior history of palpitations or syncopal episodes or seizure disorder. Physical examination shows an elderly lady who answers simple questions but does not appear to be aware of her surroundings and cannot indicate why she is in the hospital. She recognizes her and her friends visiting her. She is lying in bed breathes comfortably at 16 breaths per minute. Her heart rate was 78 bpm regular and her blood pressure was 144/74 mmHg. Her jugular venous pressure was not elevated and there was no edema over her lower extremities. The pedal pulses were feeble and present on the left side while the right lower extremity was heavily bandaged. There was no carotid bruits. Her extremities were warm and nailbeds were pink. There was no central or peripheral cyanosis. There was no clubbing. The apex was vaguely felt in the face basal first and second heart sounds are normal. There was no murmur or gallop. There were no rales. Abdomen was soft and liver and spleen are not palpable. Her electro-cardial gram showed sinus rhythm with left bundle branch block a pattern seen on her earlier electro-cardiograms as well. Her lab data shows a serum sodium level of 127 mg/L and she was markedly hyperglycemic. The rest of her labs were noted. Impression: near-syncopal episode in a patient with dementia long-standing diabetes mellitus and hypertension. The patient did not have a syncopal episode and her weakness requiring her to slide to the floor is very likely secondary to hyponatremia which probably is due to significant hyperglycemia. The patient shows steady sinus rhythm with rare premature beats on her telemetry. An echocardiogram would be obtained to see her left ventricular systolic function. At this juncture she is stable from cardiovascular point of view. Past Patient History - Infectious Disease Hx of Infectious Diseases: None - Past Medical History & Family History Past Medical History?: Yes - Past Social History Smoking Status: Never Smoked - CARDIAC Hx Cardiac Disorders: Yes (high cholesterol. HTN) Hx Congestive Heart Failure: Yes Hx Hypercholesterolemia: Yes - PULMONARY Hx Respiratory Disorders: No - NEUROLOGICAL Hx Neurological Disorder: Yes Hx Dementia: Yes - HEENT Hx HEENT Problems: No - RENAL Hx Chronic Kidney Disease: No - ENDOCRINE/METABOLIC Hx Endocrine Disorders: Yes (DM) Hx Diabetes Mellitus Type 2: Yes - HEMATOLOGICAL/ONCOLOGICAL Hx Blood Disorders: No Hx AIDS: No Hx Human Immunodeficiency Virus (HIV): No - INTEGUMENTARY Hx Dermatological Problems: No - MUSCULOSKELETAL/RHEUMATOLOGICAL Hx Musculoskeletal Disorders: Yes Hx Falls: Yes Hx Fractures: Yes Hx Osteoporosis: Yes - GASTROINTESTINAL Hx Gastrointestinal Disorders: Yes Hx Colostomy: Yes Other/Comment: hx of bowel obstruction - GENITOURINARY/GYNECOLOGICAL Hx Genitourinary Disorders: Yes Hx Incontinence: Yes - PSYCHIATRIC Hx Psychophysiologic Disorder: No Hx Substance Use: No - SURGICAL HISTORY Hx Surgeries: Yes Hx Cholecystectomy: Yes - ANESTHESIA Hx Anesthesia: Yes Hx Anesthesia Reactions: No Hx Malignant Hyperthermia: No Meds Allergies/Adverse Reactions: Allergies Allergy/AdvReac Type Severity Reaction Status Date / Time ampicillin Allergy RASH Verified 09/15/18 14:32 Penicillins Allergy RASH Verified 09/15/18 14:32 - Medications Medications: Current Medications Aspirin (Ecotrin) 81 mg PO DAILY [facility] Last Admin: 09/16/18 11:11 Dose: 81 mg Carvedilol (Coreg) 3.125 mg PO BID PRN PRN Reason: BP >140/80 Cholecalciferol (Vitamin D) 1,000 intlu PO DAILY [facility] Last Admin: 09/16/18 11:10 Dose: 1,000 intlu Ferrous Sulfate (Feosol) 325 mg PO MWF [facility] Last Admin: 09/16/18 11:10 Dose: 325 mg Furosemide (Lasix) 10 mg PO DAILY [facility] Last Admin: 09/16/18 11:09 Dose: 10 mg Insulin Detemir (Levemir) 24 units SC [facility] Insulin Human Regular (Humulin R) 0 units SC ACCU-CHECK [facility]; Protocol Last Admin: 09/16/18 11:08 Dose: 3 units Isosorbide Mononitrate (Imdur Er) 30 mg PO DAILY [facility] Last Admin: 09/16/18 11:09 Dose: 30 mg Sitagliptin Phosphate (Januvia) 100 mg PO DAILY [facility] Last Admin: 09/16/18 11:09 Dose: 100 mg Results - Vital Signs Recent Vital Signs: Last Vital Signs Temp 97.9 F 09/16/18 08:00 Pulse 86 09/16/18 08:00 Resp 18 09/16/18 08:00 BP 134/73 09/16/18 11:09 Pulse Ox 97 09/16/18 08:00 - Labs Result Diagrams: 09/16/18 10:36 09/16/18 10:36 Labs: Laboratory Results - last 24 hr 09/15/18 09/15/18 09/15/18 14:55 15:15 15:15 WBC 12.1 H RBC 4.63 Hgb 12.2 Hct 38.1 MCV 82.4 MCH 26.4 L MCHC 32.1 L RDW 15.9 H Plt Count 310 MPV 8.1 Neut % (Auto) 68.1 Lymph % (Auto) 19.6 L [place] % (Auto) 6.5 Eos % (Auto) 5.2 H Baso % (Auto) 0.6 Neut # (Auto) 8.2 H Lymph # (Auto) 2.4 [place] # (Auto) 0.8 Eos # (Auto) 0.6 Baso # (Auto) 0.1 Sodium 127 L Potassium 4.9 Chloride 94 L Carbon Dioxide 22 Anion Gap 16 BUN 23 H Creatinine 1.1 Est GFR ( Amer) 57 Est GFR (Non-Af Amer) 47 POC Glucose (mg/dL) 262 H Random Glucose 251 H Calcium 9.1 Total Bilirubin 0.4 AST 31 ALT 19 Alkaline Phosphatase 99 Troponin I 0.0350 NT-Pro-B Natriuret Pep Total Protein 6.7 Albumin 3.2 L Globulin 3.6 Albumin/Globulin Ratio 0.9 L 09/15/18 09/15/18 09/16/18 18:45 20:43 05:08 WBC RBC Hgb Hct MCV MCH MCHC RDW Plt Count MPV Neut % (Auto) Lymph % (Auto) [place] % (Auto) Eos % (Auto) Baso % (Auto) Neut # (Auto) Lymph # (Auto) [place] # (Auto) Eos # (Auto) Baso # (Auto) Sodium Potassium Chloride Carbon Dioxide Anion Gap BUN Creatinine Est GFR ( Amer) Est GFR (Non-Af Amer) POC Glucose (mg/dL) 192 H 100 Random Glucose Calcium Total Bilirubin AST ALT Alkaline Phosphatase Troponin I NT-Pro-B Natriuret Pep 1010 H Total Protein Albumin Globulin Albumin/Globulin Ratio 09/16/18 09/16/18 10:36 10:36 WBC 10.0 RBC 4.47 Hgb 12.1 Hct 36.5 MCV 81.7 MCH 27.1 MCHC 33.2 RDW 16.0 H Plt Count 353 MPV Neut % (Auto) Lymph % (Auto) [place] % (Auto) Eos % (Auto) Baso % (Auto) Neut # (Auto) Lymph # (Auto) [place] # (Auto) Eos # (Auto) Baso # (Auto) Sodium 127 L Potassium 4.4 Chloride 92 L Carbon Dioxide 26 Anion Gap 13 BUN 17 Creatinine 0.8 Est GFR ( Amer) > 60 Est GFR (Non-Af Amer) > 60 POC Glucose (mg/dL) Random Glucose 282 H Calcium 8.9 Total Bilirubin 0.5 AST 19 ALT 21 Alkaline Phosphatase 88 Troponin I NT-Pro-B Natriuret Pep Total Protein 6.8 Albumin 3.2 L Globulin 3.6 Albumin/Globulin Ratio 0.9 L
--- NOTE | 2018-09-16 20:03 | CARD ---
APPROVED REPORT Date of service: 09/15/2018 EKG Measurement Heart [id number] <Conclusion> Normal sinus rhythm Left axis deviation Left bundle branch block Abnormal ECG
[2018-09-16] MEDS: Insulin Detemir 100 Units/ml Inj SC SCH (22:44)
[2018-09-17] MEDS: Insulin Regular 100 units/ml SC SCH ×4 (06:20→22:35)
[2018-09-17 08:17] LABS: ALB/GLOB RATIO 0.9 (1.0-2.1); ALT/SGPT 21 U/L (9-52); AST/SGOT 25 U/L (14-36); BLOOD UREA NITROGEN 25 mg/dl (7-17); CALCIUM 8.9 mg/dL (8.4-10.2); GFR NON-AFRICAN AMERICAN 53
[2018-09-17 08:19] LABS: HEMOGLOBIN 11.6 g/dL (12.0-16.0); MEAN CELL VOLUME 82.8 fl (81.0-99.0); MEAN CORPUSCULAR HEMOGLOBIN 26.4 pg (27.0-31.0); MEAN CORPUSCULAR HGB CONC 31.9 g/dL (33.0-37.0); RBC 4.39 Mil/uL (3.80-5.20); RED CELL DISTRIBUTION WIDTH 15.9 % (11.5-14.5); WHITE BLOOD COUNT 11.3 K/uL (4.8-10.8)
[2018-09-17] MEDS: Cholecalciferol 1,000 INTLU TAB PO SCH (08:59)
--- NOTE | 2018-09-17 08:59 | CARD ---
APPROVED REPORT Date of service: 09/16/2018 EXAM: Two-dimensional and M-mode echocardiogram with Doppler and color Doppler. Other Information Quality : AverageRhythm : LBBB INDICATION Elevated Pro BNP 2D DIMENSIONS IVSd1.13 (0.7-1.1cm)LVDd2.92 (3.9-5.9cm) LVOT Diameter1.73 (1.8-2.4cm)PWd0.85 (0.7-1.1cm) IVSs1.16 (0.8-1.2cm)LVDs2.88 (2.5-4.0cm) FS (%) 1.6 %PWs0.77 (0.8-1.2cm) M-Mode DIMENSIONS Left Atrium (MM)3.91 (2.5-4.0cm)Aortic Root2.82 (2.2-3.7cm) Aortic Cusp Exc.1.24 (1.5-2.0cm) Aortic Valve AoV Peak Azljopyw949.3cm/sAoV VTI26.3cmAO Peak GR.8mmHg LVOT Peak Brotmtpi57.3cm/sLVOT VTI10.08cmAO Mean GR.5mmHg BETO (VMAX)0.98vt8UYG (VTI)0.70cm2 Mitral Valve MV E Lmuubwkv593.2cm/sMV DECEL [id number] A Mbfmhmtj19.7cm/s MV XBE87nnO/A ratio4.8MVA (PHT)4.38cm2 TDI E/Lateral E'0.0E/Medial E'0.0 Tricuspid Valve TR Peak Yvzaotwz085lc/sRAP [id number] Peak Gr.18mmHg [id number] LEFT VENTRICLE The left ventricle is normal size. There is mild concentric left ventricular hypertrophy. The left ventricular function is normal. LVEF is 60-65%. There is normal LV segmental wall motion. Transmitral Doppler flow pattern is Grade I-abnormal relaxation pattern. RIGHT VENTRICLE The right ventricle is normal size. There is normal right ventricular wall thickness. The right ventricular systolic function is normal. ATRIA The left atrium size is normal. The right atrium size is normal. AORTIC VALVE The aortic valve is mildly sclerotic. No aortic regurgitation is present. There is no aortic valvular stenosis. MITRAL VALVE The mitral valve is normal in structure. There is no evidence of mitral valve prolapse. There is no mitral valve stenosis. Mitral regurgitation is trace. TRICUSPID VALVE The tricuspid valve is normal in structure. There is trace tricuspid regurgitation. Right ventricular systolic pressure is estimated at 30 mmHg. There is no pulmonary hypertension. PULMONIC VALVE The pulmonary valve is normal in structure. There is no pulmonic valvular regurgitation. GREAT VESSELS The aortic root is normal in size. The IVC was not visualized. PERICARDIAL EFFUSION The pericardium appears normal. <Conclusion> The left ventricle is normal size. There is mild concentric left ventricular hypertrophy. The left ventricular function is normal. LVEF is 60-65%. There is normal LV segmental wall motion. Transmitral Doppler flow pattern is Grade I-abnormal relaxation pattern.
--- NOTE | 2018-09-17 09:28 | CP.PCM.PN ---
Subjective - Date & Time of Evaluation Date of Evaluation: 09/17/18 Time of Evaluation: 09:00 - Subjective Subjective: Clinically unchanged Lying comfortably in bed breathes comfortably at 16 breaths per minute. Mildly confused about his surroundings. Telemetry shows steady sinus rhythm at physiological rates with rare isolated i mmature ventricular beat. Her blood pressure was 130/74 mmHg. Review of her echocardiogram shows mildly hypertrophied left ventricle with preserved left ventricular systolic function. No significant valvular abnormalities were detected. No further cardiac workup or intervention recommended. Objective - Vital Signs/Intake and Output Vital Signs (last 24 hours): Temp Pulse Resp BP Pulse Ox 98.1 F 74 18 145/71 100 09/17/18 08:10 09/17/18 08:10 09/17/18 08:10 09/17/18 08:59 09/17/18 08:10 - Medications Medications: Current Medications Aspirin (Ecotrin) 81 mg PO DAILY [facility] Last Admin: 09/17/18 09:00 Dose: 81 mg Carvedilol (Coreg) 3.125 mg PO BID PRN PRN Reason: BP >140/80 Cholecalciferol (Vitamin D) 1,000 intlu PO DAILY [facility] Last Admin: 09/17/18 08:59 Dose: 1,000 intlu Ferrous Sulfate (Feosol) 325 mg PO MWF [facility] Last Admin: 09/16/18 11:10 Dose: 325 mg Furosemide (Lasix) 10 mg PO DAILY [facility] Last Admin: 09/17/18 08:59 Dose: 10 mg Insulin Detemir (Levemir) 24 units SC HS [facility] Last Admin: 09/16/18 22:44 Dose: 24 units Insulin Human Regular (Humulin R) 0 units SC ACCU-CHECK [facility]; Protocol Last Admin: 09/17/18 06:20 Dose: Not Given Isosorbide Mononitrate (Imdur Er) 30 mg PO DAILY [facility] Last Admin: 09/17/18 08:59 Dose: 30 mg Sitagliptin Phosphate (Januvia) 100 mg PO DAILY [facility] Last Admin: 09/17/18 08:59 Dose: 100 mg - Labs Labs: 09/17/18 06:00 09/17/18 06:00
--- NOTE | 2018-09-17 12:29 | CP.PCM.PN ---
Subjective - Date & Time of Evaluation Date of Evaluation: 09/17/18 Time of Evaluation: 12:28 - Subjective Subjective: Podiatry - Dr. Herbert 83F seen and evaluated at bedside for right ankle pain. Family present at bedside. Patient reports pain in right ankle though improved since admission. Posterior splint clean/dry/intact. Denies n/v/f/d/c/sob. No new complaints. Objective - Vital Signs/Intake and Output Vital Signs (last 24 hours): Temp Pulse Resp BP Pulse Ox 97.5 F L 93 H 18 125/75 99 09/17/18 12:21 09/17/18 12:21 09/17/18 12:21 09/17/18 12:21 09/17/18 12:21 - Medications Medications: Current Medications Aspirin (Ecotrin) 81 mg PO DAILY [facility] Last Admin: 09/17/18 09:00 Dose: 81 mg Carvedilol (Coreg) 3.125 mg PO BID PRN PRN Reason: BP >140/80 Cholecalciferol (Vitamin D) 1,000 intlu PO DAILY [facility] Last Admin: 09/17/18 08:59 Dose: 1,000 intlu Ferrous Sulfate (Feosol) 325 mg PO MWF [facility] Last Admin: 09/16/18 11:10 Dose: 325 mg Furosemide (Lasix) 10 mg PO DAILY [facility] Last Admin: 09/17/18 08:59 Dose: 10 mg Insulin Detemir (Levemir) 24 units SC HS [facility] Last Admin: 09/16/18 22:44 Dose: 24 units Insulin Human Regular (Humulin R) 0 units SC ACCU-CHECK [facility]; Protocol Last Admin: 09/17/18 06:20 Dose: Not Given Isosorbide Mononitrate (Imdur Er) 30 mg PO DAILY [facility] Last Admin: 09/17/18 08:59 Dose: 30 mg Sitagliptin Phosphate (Januvia) 100 mg PO DAILY [facility] Last Admin: 09/17/18 08:59 Dose: 100 mg - Labs Labs: 09/17/18 06:00 09/17/18 06:00 - Constitutional Appears: Well, Non-toxic, No Acute Distress - Extremities Exam Additional comments: Posterior splint to RLE clean/dry/intact. No pain upon calf squeeze. Neurovascular status intact to digits. - Neurological Exam Neurological Exam: Alert, Awake Assessment and Plan - Assessment and Plan (Free Text) Assessment: 83F pmhx Dementia, Diabetes, Fractures, HTN, Hypercholesterolemia, Osteoporosis with right nondisplaced ankle fracture Plan: Patient seen and evaluated Discussed in detail with Dr. Mcconnell Right ankle x-ray reviewed - tib fib fracture likely chronic; degenerative joint disease and osteoporosis Posterior splint left intact Instructed to remain nonweightbearing and educated on RICE protocol Pain control: Tylenol 650mg Patient to follow up in podiatry clinic upon discharge Podiatry will continue to follow
[2018-09-17] MEDS: Insulin Detemir 100 Units/ml Inj SC SCH (21:30)
[2018-09-18 06:44] LABS: MEAN CELL VOLUME 81.7 fl (81.0-99.0); MEAN CORPUSCULAR HEMOGLOBIN 26.6 pg (27.0-31.0); MEAN CORPUSCULAR HGB CONC 32.5 g/dL (33.0-37.0); RBC 4.16 Mil/uL (3.80-5.20); RED CELL DISTRIBUTION WIDTH 15.7 % (11.5-14.5)
[2018-09-18] MEDS: Insulin Regular 100 units/ml SC SCH ×4 (06:50→23:21)
[2018-09-18 07:02] LABS: ALB/GLOB RATIO 0.9 (1.0-2.1); ALBUMIN 2.9 g/dL (3.5-5.0); ALT/SGPT 17 U/L (9-52); AST/SGOT 22 U/L (14-36); BLOOD UREA NITROGEN 24 mg/dl (7-17); CALCIUM 8.6 mg/dL (8.4-10.2); GFR NON-AFRICAN AMERICAN > 60
[2018-09-18] MEDS: Cholecalciferol 1,000 INTLU TAB PO SCH (09:42)
[2018-09-18] MEDS: Sodium Chloride 0.9% 1,000 ML IV SCH (12:58)
--- NOTE | 2018-09-18 21:29 | CP.PCM.CON ---
History of Present Illness - History of Present Illness History of Present Illness: 83 yr old woman who presents with dizziness that is acute in nature, with pmhx of Dementia, Diabetes, Fractures, HTN, Hypercholesterolemia, Osteoporosis. She is not able to give me a proper history but is able to tell me that she has dizziness that is worse when she lies down. There is no nausea, vomiting, diarrhea or headache. PMHx - Dementia, Diabetes, Fractures, HTN, Hypercholesterolemia, Osteoporosis PSHx - Cholecystectomy All - penicillins On exam: MMS: . Otherwise normal neurological examination. Gait is wide based. There is no ataxia or focality to exam. Past Patient History - Infectious Disease Hx of Infectious Diseases: None - Past Medical History & Family History Past Medical History?: Yes - Past Social History Smoking Status: Never Smoked - CARDIAC Hx Cardiac Disorders: Yes (high cholesterol. HTN) Hx Congestive Heart Failure: Yes Hx Hypercholesterolemia: Yes - PULMONARY Hx Respiratory Disorders: No - NEUROLOGICAL Hx Neurological Disorder: Yes Hx Dementia: Yes - HEENT Hx HEENT Problems: No - RENAL Hx Chronic Kidney Disease: No - ENDOCRINE/METABOLIC Hx Endocrine Disorders: Yes (DM) Hx Diabetes Mellitus Type 2: Yes - HEMATOLOGICAL/ONCOLOGICAL Hx Blood Disorders: No Hx AIDS: No Hx Human Immunodeficiency Virus (HIV): No - INTEGUMENTARY Hx Dermatological Problems: No - MUSCULOSKELETAL/RHEUMATOLOGICAL Hx Musculoskeletal Disorders: Yes Hx Falls: Yes Hx Fractures: Yes Hx Osteoporosis: Yes - GASTROINTESTINAL Hx Gastrointestinal Disorders: Yes Hx Colostomy: Yes Other/Comment: hx of bowel obstruction - GENITOURINARY/GYNECOLOGICAL Hx Genitourinary Disorders: Yes Hx Incontinence: Yes - PSYCHIATRIC Hx Psychophysiologic Disorder: No Hx Substance Use: No - SURGICAL HISTORY Hx Surgeries: Yes Hx Cholecystectomy: Yes - ANESTHESIA Hx Anesthesia: Yes Hx Anesthesia Reactions: No Hx Malignant Hyperthermia: No Meds Allergies/Adverse Reactions: Allergies Allergy/AdvReac Type Severity Reaction Status Date / Time ampicillin Allergy RASH Verified 09/15/18 14:32 Penicillins Allergy RASH Verified 09/15/18 14:32 - Medications Medications: Current Medications Acetaminophen (Tylenol 325mg Tab) 650 mg PO Q4 PRN PRN Reason: Pain, Mild (1-3) Aspirin (Ecotrin) 81 mg PO DAILY [facility] Last Admin: 09/18/18 09:41 Dose: 81 mg Cholecalciferol (Vitamin D) 1,000 intlu PO DAILY [facility] Last Admin: 09/18/18 09:42 Dose: 1,000 intlu Ferrous Sulfate (Feosol) 325 mg PO MWF [facility] Last Admin: 09/16/18 11:10 Dose: 325 mg Furosemide (Lasix) 10 mg PO DAILY [facility] Last Admin: 09/18/18 09:41 Dose: 10 mg Sodium Chloride (Sodium Chloride 0.9%) 1,000 mls @ 100 mls/hr IV .Q10H [facility] Stop: 09/19/18 12:07 Last Admin: 09/18/18 12:58 Dose: 100 mls/hr Insulin Detemir (Levemir) 24 units SC [facility] Last Admin: 09/17/18 21:30 Dose: 24 units Insulin Human Regular (Humulin R) 0 units SC ACCU-CHECK [facility]; Protocol Last Admin: 09/18/18 17:34 Dose: 3 units Isosorbide Mononitrate (Imdur Er) 30 mg PO DAILY [facility] Last Admin: 09/18/18 09:41 Dose: 30 mg Sitagliptin Phosphate (Januvia) 100 mg PO DAILY [facility] Last Admin: 09/18/18 09:41 Dose: 100 mg Results - Vital Signs Recent Vital Signs: Last Vital Signs Temp 97.4 F L 09/18/18 20:01 Pulse 70 09/18/18 20:01 Resp 18 09/18/18 20:01 BP 107/58 L 09/18/18 20:01 Pulse Ox 98 09/18/18 20:01 - Labs Result Diagrams: 09/19/18 04:25 09/19/18 04:25 Labs: Laboratory Results - last 24 hr 09/17/18 09/18/18 09/18/18 21:17 06:00 06:00 WBC 13.0 H RBC 4.16 Hgb 11.0 L Hct 34.0 MCV 81.7 MCH 26.6 L MCHC 32.5 L RDW 15.7 H Plt Count 348 Sodium 128 L Potassium 4.5 Chloride 96 L Carbon Dioxide 29 Anion Gap 8 L BUN 24 H Creatinine 0.8 Est GFR ( Amer) > 60 Est GFR (Non-Af Amer) > 60 POC Glucose (mg/dL) 219 H Random Glucose 146 H Calcium 8.6 Total Bilirubin 0.3 AST 22 ALT 17 Alkaline Phosphatase 110 Total Protein 6.2 L Albumin 2.9 L Globulin 3.3 Albumin/Globulin Ratio 0.9 L 09/18/18 09/18/18 06:01 11:36 WBC RBC Hgb Hct MCV MCH MCHC RDW Plt Count Sodium Potassium Chloride Carbon Dioxide Anion Gap BUN Creatinine Est GFR ( Amer) Est GFR (Non-Af Amer) POC Glucose (mg/dL) 154 H 289 H Random Glucose Calcium Total Bilirubin AST ALT Alkaline Phosphatase Total Protein Albumin Globulin Albumin/Globulin Ratio Assessment & Plan - Assessment and Plan (Free Text) Assessment: 83 yr old woman who most likely had a presyncopal spell that was secondary to hyponatremia and hyperglycemia. She has a normal neuro exam, non focal and is back to baseline. PLan: 1. Carotid dopplers 1a. ECho 2. Would not recommend neuroimaging at this time. Thank you Dr. Santacruz
[2018-09-18] MEDS: Insulin Detemir 100 Units/ml Inj SC SCH (21:53)
--- NOTE | 2018-09-18 22:35 | CP.PCM.HP ---
History of Present Illness - History of Present Illness History of Present Illness: 83 female with pmhx of Dementia, Diabetes, Fractures, HTN, Hypercholesterolemia, Osteoporosis presented to ED after patient felt legs get weak and was required to help her down to the ground. In ED it was noted ekg: LBBB no acute findings, xray of tib-fib: fx of tib fib, podiatry consulted and hyponatremia was noted Patient was seen and examined at bedside. No complaints offered at this time. Denies cp/sob/palpitations. Lives at home with . PMHx - Dementia, Diabetes, Fractures, HTN, Hypercholesterolemia, Osteoporosis PSHx - Cholecystectomy Allergies - penicillins Present on Admission - Present on Admission Any Indicators Present on Admission: Yes History of Uncontrolled Diabetes: Yes Review of Systems - Review of Systems All systems: reviewed and no additional remarkable complaints except (mentioned in HPI) Past Patient History - Infectious Disease Hx of Infectious Diseases: None - Past Medical History & Family History Past Medical History?: Yes Past Family History: Reviewed and not pertinent - Past Social History Smoking Status: Never Smoked - CARDIAC Hx Cardiac Disorders: Yes (high cholesterol. HTN) Hx Congestive Heart Failure: Yes Hx Hypercholesterolemia: Yes - PULMONARY Hx Respiratory Disorders: No - NEUROLOGICAL Hx Neurological Disorder: Yes Hx Dementia: Yes - HEENT Hx HEENT Problems: No - RENAL Hx Chronic Kidney Disease: No - ENDOCRINE/METABOLIC Hx Endocrine Disorders: Yes (DM) Hx Diabetes Mellitus Type 2: Yes - HEMATOLOGICAL/ONCOLOGICAL Hx Blood Disorders: No Hx AIDS: No Hx Human Immunodeficiency Virus (HIV): No - INTEGUMENTARY Hx Dermatological Problems: No - MUSCULOSKELETAL/RHEUMATOLOGICAL Hx Musculoskeletal Disorders: Yes Hx Falls: Yes Hx Fractures: Yes Hx Osteoporosis: Yes - GASTROINTESTINAL Hx Gastrointestinal Disorders: Yes Hx Colostomy: Yes Other/Comment: hx of bowel obstruction - GENITOURINARY/GYNECOLOGICAL Hx Genitourinary Disorders: Yes Hx Incontinence: Yes - PSYCHIATRIC Hx Psychophysiologic Disorder: No Hx Substance Use: No - SURGICAL HISTORY Hx Surgeries: Yes Hx Cholecystectomy: Yes - ANESTHESIA Hx Anesthesia: Yes Hx Anesthesia Reactions: No Hx Malignant Hyperthermia: No Meds Allergies/Adverse Reactions: Allergies Allergy/AdvReac Type Severity Reaction Status Date / Time ampicillin Allergy RASH Verified 09/15/18 14:32 Penicillins Allergy RASH Verified 09/15/18 14:32 Physical Exam - Constitutional Appears: Non-toxic, No Acute Distress - Head Exam Head Exam: NORMAL INSPECTION - Eye Exam Eye Exam: Normal appearance - Neck Exam Neck exam: Positive for: Normal Inspection - Respiratory Exam Respiratory Exam: NORMAL BREATHING PATTERN - Cardiovascular Exam Cardiovascular Exam: +S1, +S2 - Neurological Exam Neurological exam: Alert - Psychiatric Exam Psychiatric exam: Normal Affect, Normal Mood - Skin Skin Exam: Normal Color, Warm Results - Vital Signs Recent Vital Signs: Last Vital Signs Temp 97.4 F L 09/18/18 20:01 Pulse 70 09/18/18 20:01 Resp 18 09/18/18 20:01 BP 107/58 L 09/18/18 20:01 Pulse Ox 98 09/18/18 20:01 - Labs Result Diagrams: 09/18/18 06:00 09/18/18 06:00 Labs: Laboratory Results - last 24 hr 09/17/18 09/18/18 09/18/18 21:17 06:00 06:00 WBC 13.0 H RBC 4.16 Hgb 11.0 L Hct 34.0 MCV 81.7 MCH 26.6 L MCHC 32.5 L RDW 15.7 H Plt Count 348 Sodium 128 L Potassium 4.5 Chloride 96 L Carbon Dioxide 29 Anion Gap 8 L BUN 24 H Creatinine 0.8 Est GFR ( Amer) > 60 Est GFR (Non-Af Amer) > 60 POC Glucose (mg/dL) 219 H Random Glucose 146 H Calcium 8.6 Total Bilirubin 0.3 AST 22 ALT 17 Alkaline Phosphatase 110 Total Protein 6.2 L Albumin 2.9 L Globulin 3.3 Albumin/Globulin Ratio 0.9 L 09/18/18 09/18/18 09/18/18 06:01 11:36 21:29 WBC RBC Hgb Hct MCV MCH MCHC RDW Plt Count Sodium Potassium Chloride Carbon Dioxide Anion Gap BUN Creatinine Est GFR ( Amer) Est GFR (Non-Af Amer) POC Glucose (mg/dL) 154 H 289 H 209 H Random Glucose Calcium Total Bilirubin AST ALT Alkaline Phosphatase Total Protein Albumin Globulin Albumin/Globulin Ratio Assessment & Plan - Assessment and Plan (Free Text) Assessment: 83 female with pmhx of Dementia, Diabetes, Fractures, HTN, Hypercholesterolemia, Osteoporosis admitted for near syncope, hyponatremia, right ankle fracture. plan monitor labs monitor vitals IVF Podiatry consulted Cardiology consulted meds as prescribed rest of plan as ordered
--- NOTE | 2018-09-18 22:39 | CP.PCM.PN ---
Subjective - Date & Time of Evaluation Date of Evaluation: 09/17/18 Time of Evaluation: 11:00 - Subjective Subjective: patient seen and examined at bedside. interim events noted no complaints offered at this time podiatry/cardiology following Objective - Vital Signs/Intake and Output Vital Signs (last 24 hours): Temp Pulse Resp BP Pulse Ox 97.4 F L 70 18 107/58 L 98 09/18/18 20:01 09/18/18 20:01 09/18/18 20:01 09/18/18 20:01 09/18/18 20:01 - Medications Medications: Current Medications Acetaminophen (Tylenol 325mg Tab) 650 mg PO Q4 PRN PRN Reason: Pain, Mild (1-3) Aspirin (Ecotrin) 81 mg PO DAILY [facility] Last Admin: 09/18/18 09:41 Dose: 81 mg Cholecalciferol (Vitamin D) 1,000 intlu PO DAILY [facility] Last Admin: 09/18/18 09:42 Dose: 1,000 intlu Ferrous Sulfate (Feosol) 325 mg PO MWF [facility] Last Admin: 09/16/18 11:10 Dose: 325 mg Furosemide (Lasix) 10 mg PO DAILY [facility] Last Admin: 09/18/18 09:41 Dose: 10 mg Sodium Chloride (Sodium Chloride 0.9%) 1,000 mls @ 100 mls/hr IV .Q10H [facility] Stop: 09/19/18 12:07 Last Admin: 09/18/18 12:58 Dose: 100 mls/hr Insulin Detemir (Levemir) 24 units SC [facility] Last Admin: 09/18/18 21:53 Dose: 24 units Insulin Human Regular (Humulin R) 0 units SC ACCU-CHECK [facility]; Protocol Last Admin: 09/18/18 17:34 Dose: 3 units Isosorbide Mononitrate (Imdur Er) 30 mg PO DAILY [facility] Last Admin: 09/18/18 09:41 Dose: 30 mg Sitagliptin Phosphate (Januvia) 100 mg PO DAILY [facility] Last Admin: 09/18/18 09:41 Dose: 100 mg - Labs Labs: 09/18/18 06:00 09/18/18 06:00 - Additional Findings Additional findings: - Constitutional Appears: Non-toxic - Head Exam Head Exam: NORMAL INSPECTION - Eye Exam Eye Exam: Normal appearance - Neck Exam Neck Exam: Normal Inspection - Respiratory Exam Respiratory Exam: NORMAL BREATHING PATTERN - Cardiovascular Exam Cardiovascular Exam: +S1, +S2 - GI/Abdominal Exam GI & Abdominal Exam: Soft - Neurological Exam Neurological Exam: Alert, Awake - Psychiatric Exam Psychiatric exam: Normal Affect, Normal Mood - Skin Skin Exam: Normal Color, Warm Assessment and Plan - Assessment and Plan (Free Text) Assessment: 83 female with pmhx of Dementia, Diabetes, Fractures, HTN, Hypercholesterolemia, Osteoporosis admitted for near syncope, hyponatremia, right ankle fracture. plan monitor labs monitor vitals IVF Podiatry consulted Cardiology consulted Neurology consulted PT eval meds as prescribed rest of plan as ordered
--- NOTE | 2018-09-18 22:40 | CP.PCM.PN ---
Subjective - Date & Time of Evaluation Date of Evaluation: 09/18/18 Time of Evaluation: 11:00 - Subjective Subjective: patient seen and examined at bedside. interim events noted no complaints offered at this time podiatry/cardiology/neuro following Objective - Vital Signs/Intake and Output Vital Signs (last 24 hours): Temp Pulse Resp BP Pulse Ox 97.4 F L 70 18 107/58 L 98 09/18/18 20:01 09/18/18 20:01 09/18/18 20:01 09/18/18 20:01 09/18/18 20:01 - Medications Medications: Current Medications Acetaminophen (Tylenol 325mg Tab) 650 mg PO Q4 PRN PRN Reason: Pain, Mild (1-3) Aspirin (Ecotrin) 81 mg PO DAILY [facility] Last Admin: 09/18/18 09:41 Dose: 81 mg Cholecalciferol (Vitamin D) 1,000 intlu PO DAILY [facility] Last Admin: 09/18/18 09:42 Dose: 1,000 intlu Ferrous Sulfate (Feosol) 325 mg PO MWF [facility] Last Admin: 09/16/18 11:10 Dose: 325 mg Furosemide (Lasix) 10 mg PO DAILY [facility] Last Admin: 09/18/18 09:41 Dose: 10 mg Sodium Chloride (Sodium Chloride 0.9%) 1,000 mls @ 100 mls/hr IV .Q10H [facility] Stop: 09/19/18 12:07 Last Admin: 09/18/18 12:58 Dose: 100 mls/hr Insulin Detemir (Levemir) 24 units SC [facility] Last Admin: 09/18/18 21:53 Dose: 24 units Insulin Human Regular (Humulin R) 0 units SC ACCU-CHECK [facility]; Protocol Last Admin: 09/18/18 17:34 Dose: 3 units Isosorbide Mononitrate (Imdur Er) 30 mg PO DAILY [facility] Last Admin: 09/18/18 09:41 Dose: 30 mg Sitagliptin Phosphate (Januvia) 100 mg PO DAILY [facility] Last Admin: 09/18/18 09:41 Dose: 100 mg - Labs Labs: 09/18/18 06:00 09/18/18 06:00 - Additional Findings Additional findings: - Constitutional Appears: Non-toxic - Head Exam Head Exam: NORMAL INSPECTION - Eye Exam Eye Exam: Normal appearance - Neck Exam Neck Exam: Normal Inspection - Respiratory Exam Respiratory Exam: NORMAL BREATHING PATTERN - Cardiovascular Exam Cardiovascular Exam: +S1, +S2 - GI/Abdominal Exam GI & Abdominal Exam: Soft - Neurological Exam Neurological Exam: Alert, Awake - Psychiatric Exam Psychiatric exam: Normal Affect, Normal Mood - Skin Skin Exam: Normal Color, Warm Assessment and Plan - Assessment and Plan (Free Text) Assessment: 83 female with pmhx of Dementia, Diabetes, Fractures, HTN, Hypercholesterolemia, Osteoporosis admitted for near syncope, hyponatremia, right ankle fracture. plan monitor labs monitor vitals IVF Podiatry consulted Cardiology consulted Neurology consulted PT eval - pt refusing, encouraged compliance meds as prescribed rest of plan as ordered
[2018-09-19] MEDS: Sodium Chloride 0.9% 1,000 ML IV SCH ×2 (04:01→16:47)
[2018-09-19 05:28] LABS: MEAN CELL VOLUME 81.9 fl (81.0-99.0); MEAN CORPUSCULAR HEMOGLOBIN 26.3 pg (27.0-31.0); MEAN CORPUSCULAR HGB CONC 32.2 g/dL (33.0-37.0); RBC 4.17 Mil/uL (3.80-5.20); RED CELL DISTRIBUTION WIDTH 15.5 % (11.5-14.5); WHITE BLOOD COUNT 11.6 K/uL (4.8-10.8)
[2018-09-19 05:49] LABS: BLOOD UREA NITROGEN 24 mg/dl (7-17); CALCIUM 8.3 mg/dL (8.4-10.2); GFR NON-AFRICAN AMERICAN > 60
[2018-09-19] MEDS: Insulin Regular 100 units/ml SC SCH ×4 (09:28→22:41)
[2018-09-19] MEDS: Cholecalciferol 1,000 INTLU TAB PO SCH (09:30)
--- NOTE | 2018-09-19 09:38 | CP.PCM.PN ---
Subjective - Date & Time of Evaluation Date of Evaluation: 09/19/18 Time of Evaluation: 09:00 - Subjective Subjective: The patient has remained clinically unchanged. On telemetry yesterday the patient had a brief period of A-V block (2 P waves were not conducted into the ventricle.) Carvedilol was discontinued and the patient subsequently has had steady sinus rhythm with persistent left bundle branch block. Objective - Vital Signs/Intake and Output Vital Signs (last 24 hours): Temp Pulse Resp BP Pulse Ox 97.8 F 71 20 169/82 H 100 09/19/18 07:51 09/19/18 07:51 09/19/18 07:51 09/19/18 09:30 09/19/18 07:51 - Medications Medications: Current Medications Acetaminophen (Tylenol 325mg Tab) 650 mg PO Q4 PRN PRN Reason: Pain, Mild (1-3) Aspirin (Ecotrin) 81 mg PO DAILY [facility] Last Admin: 09/19/18 09:27 Dose: 81 mg Cholecalciferol (Vitamin D) 1,000 intlu PO DAILY [facility] Last Admin: 09/19/18 09:30 Dose: 1,000 intlu Ferrous Sulfate (Feosol) 325 mg PO MWF [facility] Last Admin: 09/16/18 11:10 Dose: 325 mg Furosemide (Lasix) 10 mg PO DAILY [facility] Last Admin: 09/19/18 09:30 Dose: 10 mg Sodium Chloride (Sodium Chloride 0.9%) 1,000 mls @ 100 mls/hr IV .Q10H [facility] Stop: 09/19/18 12:07 Last Admin: 09/19/18 04:01 Dose: Not Given Insulin Detemir (Levemir) 24 units SC HS [facility] Last Admin: 09/18/18 21:53 Dose: 24 units Insulin Human Regular (Humulin R) 0 units SC ACCU-CHECK [facility]; Protocol Last Admin: 09/19/18 09:28 Dose: Not Given Isosorbide Mononitrate (Imdur Er) 30 mg PO DAILY [facility] Last Admin: 09/18/18 09:41 Dose: 30 mg Sitagliptin Phosphate (Januvia) 100 mg PO DAILY [facility] Last Admin: 09/19/18 09:29 Dose: 100 mg - Labs Labs: 09/19/18 04:25 09/19/18 04:25
--- NOTE | 2018-09-19 13:12 | US ---
Date of service: 09/19/2018 PROCEDURE: Duplex ultrasound of the carotid and vertebral arteries. HISTORY: near syncope COMPARISON: None available. TECHNIQUE: Grayscale and duplex Doppler evaluation of the cervical carotid and vertebral arteries were performed. The common carotid, carotid bifurcations and cervical ICA and proximal ECA were evaluated. The vertebral arteries were evaluated for gross patency and direction. FINDINGS: RIGHT CAROTID ARTERIES: Common Carotid Artery: Maximal flow velocity of 86.6 cm/s. Carotid Bifurcation: Normal. Internal Carotid Artery:Normal. Maximal flow velocity of 66.4 cm/s. External Carotid Artery (proximal branches): Maximal flow velocity of 62.5 cm/s. ICA/CCA Ratio: 0.7 LEFT CAROTID ARTERIES: Common Carotid Artery: Maximal flow velocity of 108.0 cm/s. Carotid Bifurcation: Normal. Internal Carotid Artery:Heterogeneous plaque formation. Maximal flow velocity of 71.1 cm/s. External Carotid Artery (proximal branches): Maximal flow velocity of cm/s. ICA/CCA Ratio: 1.0 VERTEBRAL ARTERIES: Right Vertebral Artery: Patent. Antegrade flow. Left Vertebral Artery: Patent. Antegrade flow. OTHER FINDINGS: Atherosclerotic calcification present. IMPRESSION: Right ICA degree of stenosis: Less than 50% Left ICA degree of stenosis: Less than 50% Reference Internal Carotid Artery (ICA) Peak Systolic Velocity (PSV) for above: 1. Less than 50% stenosis less than 125 cm/s peak systolic velocity 2. 50-69% stenosis 125-230cm/s peak systolic velocity 3. Greater than 70% but less than near occlusion greater than 230 cm/s peak systolic velocity
--- NOTE | 2018-09-19 13:26 | CP.PCM.PN ---
Subjective - Date & Time of Evaluation Date of Evaluation: 09/19/18 Time of Evaluation: 13:26 - Subjective Subjective: Neurology Consultation Follow-Up Note: Mrs. Matthews is an 83 y/o woman who was admitted for near syncope and hyponatremia. Pt does have a h/o dementia, however, is at bedside and he states that she is at her baseline. She has a splint to her right lower leg. Pt states that she feels well and has no complaints. Denies headache, dizziness, visual changes, chest pain, shortness or breath, abd pain, n/v/d. Follows all commands. No acute overnight events per nursing. Objective - Vital Signs/Intake and Output Vital Signs (last 24 hours): Temp Pulse Resp BP Pulse Ox 98.5 F 74 20 157/77 H 100 09/19/18 12:45 09/19/18 12:45 09/19/18 12:45 09/19/18 12:45 09/19/18 12:45 - Medications Medications: Current Medications Acetaminophen (Tylenol 325mg Tab) 650 mg PO Q4 PRN PRN Reason: Pain, Mild (1-3) Aspirin (Ecotrin) 81 mg PO DAILY [facility] Last Admin: 09/19/18 09:27 Dose: 81 mg Cholecalciferol (Vitamin D) 1,000 intlu PO DAILY [facility] Last Admin: 09/19/18 09:30 Dose: 1,000 intlu Ferrous Sulfate (Feosol) 325 mg PO MWF [facility] Last Admin: 09/16/18 11:10 Dose: 325 mg Furosemide (Lasix) 10 mg PO DAILY [facility] Last Admin: 09/19/18 09:30 Dose: 10 mg Insulin Detemir (Levemir) 24 units SC HS [facility] Last Admin: 09/18/18 21:53 Dose: 24 units Insulin Human Regular (Humulin R) 0 units SC ACCU-CHECK [facility]; Protocol Last Admin: 09/19/18 09:28 Dose: Not Given Isosorbide Mononitrate (Imdur Er) 30 mg PO DAILY [facility] Last Admin: 09/18/18 09:41 Dose: 30 mg Sitagliptin Phosphate (Januvia) 100 mg PO DAILY [facility] Last Admin: 09/19/18 09:29 Dose: 100 mg - Labs Labs: 09/19/18 04:25 09/19/18 04:25 - Constitutional Appears: Well, Non-toxic, No Acute Distress - Head Exam Head Exam: ATRAUMATIC, NORMAL INSPECTION, NORMOCEPHALIC - Eye Exam Eye Exam: EOMI, Normal appearance, PERRL Pupil Exam: PERRL - ENT Exam ENT Exam: Mucous Membranes Moist - Neck Exam Neck Exam: Full ROM - Respiratory Exam Respiratory Exam: NORMAL BREATHING PATTERN - Extremities Exam Extremities Exam: absent: Full ROM, Pedal Edema Additional comments: limited ROM to RLE 2/2 pt has splint applied. Able to move toes to RLE. - Neurological Exam Neurological Exam: Alert, Awake, CN II-XII Intact, Oriented x3, Reflexes Normal. absent: Abnormal Gait Neuro motor strength exam: Left Upper Extremity: 5, Right Upper Extremity: 5, Left Lower Extremity: 5, Right Lower Extremity: 5 (splint to rle) Additional comments: limited ROM to RLE 2/2 pt has splint applied. Able to move toes to RLE. Strength to LLE and BUE 5/5; pulpwood cutter 5/5; sensation intact and equal; fine motor intact; no ataxia, no dysmetria; no hand tremors noted Speech fluid and clear - Psychiatric Exam Psychiatric exam: Normal Affect, Normal Mood - Skin Skin Exam: Normal Color Assessment and Plan (1) Near syncope Assessment & Plan: Imaging: -CT head (09/15/18): Generalized atrophy. Nonspecific white matter changes. -Carotid U/S (09/18/18): right and left ICA degree of stenosis less than 50 %. -Mrs. Matthews is neurologically stable at this time and back to her baselines per . -Near syncope and dizziness on admission possibly related to hyponatremia (Na today is 131). -Continue to monitor and correct any electrolyte imbalance -She had no hand tremor during neuro exam today and denied any tremor. -PT; discharge to rehab is pt and family agree. -Please notify neuro team of any acute changes. We will sign off at this time. Please reconsult prn. Feel free to contact us for any questions or concerns. Case discussed with Dr. Lyons. Thank you for allowing us to participate in this patient's care. Status: Acute
--- NOTE | 2018-09-19 14:19 | CP.PCM.PN ---
Subjective - Date & Time of Evaluation Date of Evaluation: 09/19/18 Time of Evaluation: 14:18 - Subjective Subjective: Podiatry progress note for Dr. Mcconnell 83F seen and evaluated at bedside for right ankle pain. Family present at bedside. Patient reports no pain in right ankle, resolved since admission. Posterior splint clean/dry/intact. Denies n/v/f/d/c/sob. No new complaints. Objective - Vital Signs/Intake and Output Vital Signs (last 24 hours): Temp Pulse Resp BP Pulse Ox 98.5 F 74 20 157/77 H 100 09/19/18 12:45 09/19/18 12:45 09/19/18 12:45 09/19/18 12:45 09/19/18 12:45 - Medications Medications: Current Medications Acetaminophen (Tylenol 325mg Tab) 650 mg PO Q4 PRN PRN Reason: Pain, Mild (1-3) Aspirin (Ecotrin) 81 mg PO DAILY [facility] Last Admin: 09/19/18 09:27 Dose: 81 mg Cholecalciferol (Vitamin D) 1,000 intlu PO DAILY [facility] Last Admin: 09/19/18 09:30 Dose: 1,000 intlu Ferrous Sulfate (Feosol) 325 mg PO MWF [facility] Last Admin: 09/19/18 09:30 Dose: 325 mg Furosemide (Lasix) 10 mg PO DAILY [facility] Last Admin: 09/19/18 09:30 Dose: 10 mg Insulin Detemir (Levemir) 24 units SC HS [facility] Last Admin: 09/18/18 21:53 Dose: 24 units Insulin Human Regular (Humulin R) 0 units SC ACCU-CHECK [facility]; Protocol Last Admin: 09/19/18 13:31 Dose: 1 units Isosorbide Mononitrate (Imdur Er) 30 mg PO DAILY [facility] Last Admin: 09/19/18 13:33 Dose: 30 mg Sitagliptin Phosphate (Januvia) 100 mg PO DAILY [facility] Last Admin: 09/19/18 09:29 Dose: 100 mg - Labs Labs: 09/19/18 04:25 09/19/18 04:25 - Constitutional Appears: Well, Non-toxic, No Acute Distress - Head Exam Head Exam: ATRAUMATIC, NORMOCEPHALIC - Extremities Exam Additional comments: Posterior splint to RLE clean/dry/intact. No pain upon calf squeeze. Neurovascular status intact to digits. - Neurological Exam Neurological Exam: Alert, Awake, Oriented x3 - Psychiatric Exam Psychiatric exam: Normal Affect, Normal Mood Assessment and Plan - Assessment and Plan (Free Text) Assessment: 83 y/o female pmhx Dementia, Diabetes, Fractures, HTN, Hypercholesterolemia, Osteoporosis with right nondisplaced ankle fracture Plan: Patient seen and evaluated Discussed in detail with Dr. Mcconnell Right ankle x-ray reviewed - tib fib fracture likely chronic; degenerative joint disease and osteoporosis Posterior splint left intact Instructed to remain non-weightbearing and educated on RICE protocol Pain control: Tylenol 650mg Patient to follow up in podiatry clinic upon discharge Podiatry will continue to follow
[2018-09-20 05:52] LABS: BLOOD UREA NITROGEN 22 mg/dl (7-17); CALCIUM 8.8 mg/dL (8.4-10.2); GFR NON-AFRICAN AMERICAN > 60
[2018-09-20] MEDS: Insulin Regular 100 units/ml SC SCH ×4 (06:37→22:25)
[2018-09-20] MEDS: Cholecalciferol 1,000 INTLU TAB PO SCH (08:56)
--- NOTE | 2018-09-20 15:05 | CP.PCM.PN ---
<Levi Travis - Last Filed: 09/20/18 15:05> Subjective - Date & Time of Evaluation Date of Evaluation: 09/20/18 Time of Evaluation: 08:00 - Subjective Subjective: Pt seen and examined this am with Dr. Aguila. Seen lying in bed comfortably. No complaints. Objective - Vital Signs/Intake and Output Vital Signs (last 24 hours): Temp Pulse Resp BP Pulse Ox 97.4 F L 72 18 124/70 99 09/20/18 12:50 09/20/18 12:50 09/20/18 12:50 09/20/18 12:50 09/20/18 12:50 - Medications Medications: Current Medications Acetaminophen (Tylenol 325mg Tab) 650 mg PO Q4 PRN PRN Reason: Pain, Mild (1-3) Aspirin (Ecotrin) 81 mg PO DAILY [facility] Last Admin: 09/20/18 08:38 Dose: 81 mg Cholecalciferol (Vitamin D) 1,000 intlu PO DAILY [facility] Last Admin: 09/20/18 08:56 Dose: 1,000 intlu Ferrous Sulfate (Feosol) 325 mg PO MWF [facility] Last Admin: 09/19/18 09:30 Dose: 325 mg Furosemide (Lasix) 10 mg PO DAILY [facility] Last Admin: 09/20/18 08:40 Dose: 10 mg Insulin Detemir (Levemir) 12 units SC [facility] Insulin Human Regular (Humulin R) 0 units SC ACCU-CHECK [facility]; Protocol Last Admin: 09/20/18 12:49 Dose: 4 units Isosorbide Mononitrate (Imdur Er) 30 mg PO DAILY [facility] Last Admin: 09/20/18 08:38 Dose: 30 mg Sitagliptin Phosphate (Januvia) 100 mg PO DAILY [facility] Last Admin: 09/20/18 08:39 Dose: 100 mg - Labs Labs: 09/19/18 04:25 09/20/18 04:25 - Constitutional Appears: No Acute Distress - Head Exam Head Exam: NORMOCEPHALIC - Eye Exam Eye Exam: Normal appearance - ENT Exam ENT Exam: Mucous Membranes Moist - Neck Exam Neck Exam: Full ROM - Respiratory Exam Respiratory Exam: Clear to Ausculation Bilateral. absent: Rales, Wheezes - Cardiovascular Exam Cardiovascular Exam: REGULAR RHYTHM, +S1, +S2 - GI/Abdominal Exam GI & Abdominal Exam: Soft. absent: Tenderness, Normal Bowel Sounds - Extremities Exam Extremities Exam: Normal Inspection - Neurological Exam Neurological Exam: Alert, Awake - Psychiatric Exam Psychiatric exam: Normal Affect - Skin Skin Exam: Normal Color Assessment and Plan - Assessment and Plan (Free Text) Assessment: 83 female with pmhx of Dementia, Diabetes, Fractures, HTN, Hypercholesterolemia, Osteoporosis admitted for near syncope, hyponatremia, right ankle fracture. plan -Hyponatremia, 129 today. May be pseudohyponatremia from hyperglycemia. Restarted home insulin (1/2 dosage) -IV fluids 0.9 NS started, gentle. Lasix held -Podiatry- R. tib-fib fx likely chronic, Non weight bearing, RICE, f/u outpatient -Neurology- near syncopy may be related to hyponatremia, monitor and correct -Cardilogy, Dr. Barrientos, pt had brief period of AV block, carvedilol dc'd. -Pending placement into subacute rehab -F/U BMP and serum osmols tomorrow -PT eval- [facility] -meds as prescribed -rest of plan as ordered Discussed case with Dr. Aguila <Chong Aguila - Last Filed: 09/20/18 19:20> Objective - Vital Signs/Intake and Output Vital Signs (last 24 hours): Temp Pulse Resp BP Pulse Ox 98.4 F 80 18 171/67 H 100 09/20/18 15:58 09/20/18 15:58 09/20/18 15:58 09/20/18 15:58 09/20/18 15:58 - Medications Medications: Current Medications Acetaminophen (Tylenol 325mg Tab) 650 mg PO Q4 PRN PRN Reason: Pain, Mild (1-3) Aspirin (Ecotrin) 81 mg PO DAILY [facility] Last Admin: 09/20/18 08:38 Dose: 81 mg Cholecalciferol (Vitamin D) 1,000 intlu PO DAILY [facility] Last Admin: 09/20/18 08:56 Dose: 1,000 intlu Ferrous Sulfate (Feosol) 325 mg PO MWF [facility] Last Admin: 09/19/18 09:30 Dose: 325 mg Furosemide (Lasix) 10 mg PO DAILY [facility] Last Admin: 09/20/18 08:40 Dose: 10 mg Sodium Chloride (Sodium Chloride 0.9%) 1,000 mls @ 50 mls/hr IV .Q20H [facility] Stop: 09/21/18 15:13 Last Admin: 09/20/18 16:42 Dose: Not Given Insulin Detemir (Levemir) 12 units SC [facility] Insulin Human Regular (Humulin R) 0 units SC ACCU-CHECK [facility]; Protocol Last Admin: 09/20/18 16:36 Dose: 5 units Isosorbide Mononitrate (Imdur Er) 30 mg PO DAILY [facility] Last Admin: 09/20/18 08:38 Dose: 30 mg Sitagliptin Phosphate (Januvia) 100 mg PO DAILY [facility] Last Admin: 09/20/18 08:39 Dose: 100 mg - Labs Labs: 09/19/18 04:25 09/20/18 04:25 Attending/Attestation - Attestation I have personally seen and examined this patient.: Yes I have fully participated in the care of the patient.: Yes I have reviewed all pertinent clinical information, including history, physical exam and plan: Yes
[2018-09-20] MEDS: Sodium Chloride 0.9% 1,000 ML IV SCH ×2 (16:35→16:42)
[2018-09-20] MEDS ORDERED: Insulin Detemir 100 Units/ml Inj SC SCH (21:00)
[2018-09-21] MEDS: Insulin Regular 100 units/ml SC SCH ×5 (06:55→21:59)
[2018-09-21] MEDS: Cholecalciferol 1,000 INTLU TAB PO SCH (08:41)
[2018-09-21 10:27] LABS: BLOOD UREA NITROGEN 20 mg/dl (7-17); CALCIUM 8.7 mg/dL (8.4-10.2); GFR NON-AFRICAN AMERICAN > 60
[2018-09-21] MEDS ORDERED: Insulin Regular 100 units/ml SC ONE (10:48)
[2018-09-21] MEDS: Sodium Chloride 0.9% 1,000 ML IV SCH (11:27)
--- NOTE | 2018-09-21 13:56 | CP.PCM.PN ---
<Levi Travis - Last Filed: 09/21/18 13:54> Subjective - Date & Time of Evaluation Date of Evaluation: 09/21/18 Time of Evaluation: 08:00 - Subjective Subjective: Pt seen and examined this morning with Dr. Aguila. Seen lying in bed, no acute distress. No complaints offered. Sodium noted to be 126, Glucose 415 this am. Insulin 6 units given. Objective - Vital Signs/Intake and Output Vital Signs (last 24 hours): Temp Pulse Resp BP Pulse Ox 97.6 F 90 18 119/71 98 09/21/18 12:14 09/21/18 12:14 09/21/18 12:14 09/21/18 12:14 09/21/18 12:14 - Medications Medications: Current Medications Acetaminophen (Tylenol 325mg Tab) 650 mg PO Q4 PRN PRN Reason: Pain, Mild (1-3) Aspirin (Ecotrin) 81 mg PO DAILY [facility] Last Admin: 09/21/18 08:46 Dose: Not Given Cholecalciferol (Vitamin D) 1,000 intlu PO DAILY [facility] Last Admin: 09/21/18 08:41 Dose: 1,000 intlu Ferrous Sulfate (Feosol) 325 mg PO MWF [facility] Last Admin: 09/21/18 08:41 Dose: 325 mg Furosemide (Lasix) 10 mg PO DAILY [facility] Last Admin: 09/20/18 08:40 Dose: 10 mg Sodium Chloride (Sodium Chloride 0.9%) 1,000 mls @ 50 mls/hr IV .Q20H [facility] Stop: 09/21/18 15:13 Last Admin: 09/21/18 11:27 Dose: Not Given Insulin Detemir (Levemir) 12 units SC [facility] Insulin Human Regular (Humulin R) 0 units SC [facility]U-CHECK [facility]; Protocol Last Admin: 09/21/18 13:04 Dose: 5 units Isosorbide Mononitrate (Imdur Er) 30 mg PO DAILY [facility] Last Admin: 09/21/18 08:42 Dose: 30 mg Sitagliptin Phosphate (Januvia) 100 mg PO DAILY [facility] Last Admin: 09/21/18 08:42 Dose: 100 mg - Labs Labs: 09/19/18 04:25 09/21/18 09:57 - Constitutional Appears: No Acute Distress - Head Exam Head Exam: NORMAL INSPECTION - Eye Exam Eye Exam: Normal appearance - ENT Exam ENT Exam: Mucous Membranes Moist - Neck Exam Neck Exam: Full ROM - Respiratory Exam Respiratory Exam: Clear to Ausculation Bilateral. absent: Rales, Wheezes - Cardiovascular Exam Cardiovascular Exam: REGULAR RHYTHM, +S1, +S2. absent: Murmur - GI/Abdominal Exam GI & Abdominal Exam: Soft, Normal Bowel Sounds. absent: Tenderness - Extremities Exam Extremities Exam: Normal Inspection - Neurological Exam Neurological Exam: Alert, Awake - Psychiatric Exam Psychiatric exam: Normal Affect - Skin Skin Exam: Normal Color Assessment and Plan - Assessment and Plan (Free Text) Assessment: 83 female with pmhx of Dementia, Diabetes, Fractures, HTN, Hypercholesterolemia, Osteoporosis admitted for near syncope, hyponatremia, right ankle fracture after fall. plan -Hyponatremia, 126 today. Likely pseudohyponatremia from hyperglycemia. Restarted home insulin (1/2 dosage) Lasix held -Podiatry- R. tib-fib fx likely chronic, Non weight bearing, RICE, f/u outpati ent -Neurology- near syncopy may be related to hyponatremia, monitor and correct -Cardilogy, Dr. Barrientos, pt had brief period of AV block, carvedilol dc'd. -Dispo: Subacute Rehab once stable -F/U BMP am -meds as prescribed -rest of plan as ordered Discussed case with Dr. Aguila <Chong Aguila - Last Filed: 09/20/18 19:20> <Chong Aguila - Last Filed: 09/21/18 17:38> Objective - Vital Signs/Intake and Output Vital Signs (last 24 hours): Temp Pulse Resp BP Pulse Ox 98.8 F 85 20 149/67 98 09/21/18 15:51 09/21/18 15:51 09/21/18 15:51 09/21/18 15:51 09/21/18 15:51 - Medications Medications: Current Medications Acetaminophen (Tylenol 325mg Tab) 650 mg PO Q4 PRN PRN Reason: Pain, Mild (1-3) Aspirin (Ecotrin) 81 mg PO DAILY [facility] Last Admin: 09/21/18 08:46 Dose: Not Given Cholecalciferol (Vitamin D) 1,000 intlu PO DAILY [facility] Last Admin: 09/21/18 08:41 Dose: 1,000 intlu Ferrous Sulfate (Feosol) 325 mg PO MWF [facility] Last Admin: 09/21/18 08:41 Dose: 325 mg Furosemide (Lasix) 10 mg PO DAILY [facility] Last Admin: 09/20/18 08:40 Dose: 10 mg Insulin Detemir (Levemir) 12 units SC [facility] Insulin Human Regular (Humulin R) 0 units SC ACCU-CHECK [facility]; Protocol Last Admin: 09/21/18 17:07 Dose: 4 units Isosorbide Mononitrate (Imdur Er) 30 mg PO DAILY [facility] Last Admin: 09/21/18 08:42 Dose: 30 mg Sitagliptin Phosphate (Januvia) 100 mg PO DAILY [facility] Last Admin: 09/21/18 08:42 Dose: 100 mg - Labs Labs: 09/19/18 04:25 09/21/18 09:57 Attending/Attestation - Attestation I have personally seen and examined this patient.: Yes I have fully participated in the care of the patient.: Yes I have reviewed all pertinent clinical information, including history, physical exam and plan: Yes
[2018-09-22 06:45] LABS: BLOOD UREA NITROGEN 25 mg/dl (7-17); CALCIUM 9.2 mg/dL (8.4-10.2); GFR NON-AFRICAN AMERICAN > 60
[2018-09-22] MEDS: Insulin Regular 100 units/ml SC SCH (06:51)
[2018-09-22 08:27] VITALS: RESP 18
[2018-09-22] MEDS ORDERED: Insulin Regular 100 units/ml SC SCH (08:34)
[2018-09-22] MEDS: Cholecalciferol 1,000 INTLU TAB PO SCH (10:27)
[2018-09-22] MEDS ORDERED: Insulin Lispro (humaLOG) 100 Units/ml Inj SC ONE (12:15)
[2018-09-22 12:16] VITALS: O2SAT 96
--- NOTE | 2018-09-22 12:57 | CP.PCM.DIS ---
<Levi Travis - Last Filed: 09/22/18 16:24> Provider - Provider Date of Admission: 09/15/18 19:20 Attending physician: Chong Aguila MD Consults: 09/15/18 19:37 Cardiology Consult Stat Comment: cough h/o chf Consulting Provider: Nick Barrientos V Consulting Physician: Nick Barrientos V Reason for Consult: cough h/o chf 09/16/18 09:48 Podiatry Consult Routine Comment: Consulting Provider: Alf Mcconnell Consulting Physician: Alf Mcconnell Reason for Consult: right malleolar fracture 09/16/18 10:00 Social Work Referral Routine Comment: 5hrs/day M-F, 7 hrs/day SAT&SUN Physician Instructions: Reason For Exam: homemaker Wound Care [Nursing Referral for Wound Care] Routine Comment: Physician Instructions: Reason For Exam: Sacral redness 09/17/18 11:17 Neurology Consult Routine Comment: Consulting Provider: Salima Santacruz Consulting Physician: Salima Santacruz Reason for Consult: dementia/hand tremor Time Spent in preparation of Discharge (in minutes): 35 Diagnosis - Discharge Diagnosis (1) Ankle fracture, right Status: Chronic (2) Hyponatremia Status: Resolved Hospital Course - Lab Results Lab Results: Most Recent Lab Values WBC 11.6 K/uL (4.8-10.8) H 09/19/18 04:25 RBC 4.17 Mil/uL (3.80-5.20) 09/19/18 04:25 Hgb 11.0 g/dL (12.0-16.0) L 09/19/18 04:25 Hct 34.2 % (34.0-47.0) 09/19/18 04:25 MCV 81.9 fl (81.0-99.0) 09/19/18 04:25 MCH 26.3 pg (27.0-31.0) L 09/19/18 04:25 MCHC 32.2 g/dL (33.0-37.0) L 09/19/18 04:25 RDW 15.5 % (11.5-14.5) H 09/19/18 04:25 Plt Count 345 K/uL (130-400) 09/19/18 04:25 MPV 8.1 fl (7.2-11.7) 09/15/18 15:15 Neut % (Auto) 68.1 % (50.0-75.0) 09/15/18 15:15 Lymph % (Auto) 19.6 % (20.0-40.0) L 09/15/18 15:15 Grimes % (Auto) 6.5 % (0.0-10.0) 09/15/18 15:15 Eos % (Auto) 5.2 % (0.0-4.0) H 09/15/18 15:15 Baso % (Auto) 0.6 % (0.0-2.0) 09/15/18 15:15 Neut # (Auto) 8.2 K/uL (1.8-7.0) H 09/15/18 15:15 Lymph # (Auto) 2.4 K/uL (1.0-4.3) 09/15/18 15:15 Grimes # (Auto) 0.8 K/uL (0.0-0.8) 09/15/18 15:15 Eos # (Auto) 0.6 K/uL (0.0-0.7) 09/15/18 15:15 Baso # (Auto) 0.1 K/uL (0.0-0.2) 09/15/18 15:15 Sodium 130 mmol/l (132-148) L 09/22/18 05:30 Potassium 4.8 MMOL/L (3.6-5.0) 09/22/18 05:30 Chloride 92 mmol/L (98-107) L 09/22/18 05:30 Carbon Dioxide 29 mmol/L (22-30) 09/22/18 05:30 Anion Gap 14 (10-20) 09/22/18 05:30 BUN 25 mg/dl (7-17) H 09/22/18 05:30 Creatinine 0.7 mg/dl (0.7-1.2) 09/22/18 05:30 Est GFR ( Amer) > 60 09/22/18 05:30 Est GFR (Non-Af Amer) > 60 09/22/18 05:30 POC Glucose (mg/dL) 368 mg/dL (65-110) H 09/22/18 11:05 Random Glucose 312 mg/dL (65-105) H 09/22/18 05:30 Serum Osmolality 287 mosm/kg (272-300) 09/20/18 16:07 Calcium 9.2 mg/dL (8.4-10.2) 09/22/18 05:30 Total Bilirubin 0.3 mg/dl (0.2-1.3) 09/18/18 06:00 AST 22 U/L (14-36) 09/18/18 06:00 ALT 17 U/L (9-52) 09/18/18 06:00 Alkaline Phosphatase 110 U/L (38-126) 09/18/18 06:00 Troponin I 0.0350 ng/mL (0.00-0.120) 09/15/18 15:15 NT-Pro-B Natriuret Pep 1010 pg/ml (0-900) H 09/15/18 18:45 Total Protein 6.2 G/DL (6.3-8.2) L 09/18/18 06:00 Albumin 2.9 g/dL (3.5-5.0) L 09/18/18 06:00 Globulin 3.3 gm/dL (2.2-3.9) 09/18/18 06:00 Albumin/Globulin Ratio 0.9 (1.0-2.1) L 09/18/18 06:00 - Hospital Course Hospital Course: 83 female with pmhx of Dementia, Diabetes, Fractures, HTN, Hypercholesterolemia, Osteoporosis admitted for near syncope episode and ankle pain. Was found to have non displaced ankle fracture. Pt was seen by Podiatry and instructed to remain non weightbearing and treated conservatively with instructions to follow up in clinic post discharge. She was evaluated by PT with recommendations for sub acute rehabilitation. During her admissions, her blood sugars were elevated which caused her to be hyponatremic. Her sugars were treated accordingly with her home insulin regimen and her hyponatremia improved. She was evalauted by Neurology who recommended to replete her electrolytes. Head CT was negative for acute changes. She was also evaluated by cardiology due to AV block noted and her Coreg was discontinued. Discharge Exam - Head Exam Head Exam: NORMAL INSPECTION Discharge Plan - Follow Up Plan Condition: FAIR Disposition: REHAB FACILITY/REHAB UNIT Instructions: Ankle Fracture (DC), Syncope (Fainting) (DC), Hyponatremia (DC) Referrals: Nick Barrientos MD [Staff Provider] - Alf Mcconnell, DPM [Staff Provider] - Chong Aguila MD [Medical Doctor] - <Chong Aguila - Last Filed: 09/22/18 17:00> Provider - Provider Date of Admission: 09/15/18 19:20 Attending physician: Chong Aguila MD Consults: 09/15/18 19:37 Cardiology Consult Stat Comment: cough h/o chf Consulting Provider: Nick Barrientos V Consulting Physician: Nick Barrientos V Reason for Consult: cough h/o chf 09/16/18 09:48 Podiatry Consult Routine Comment: Consulting Provider: Alf Mcconnell Consulting Physician: Alf Mcconnell Reason for Consult: right malleolar fracture 09/16/18 10:00 Social Work Referral Routine Comment: 5hrs/day M-F, 7 hrs/day [employer] Physician Instructions: Reason For Exam: homemaker Wound Care [Nursing Referral for Wound Care] Routine Comment: Physician Instructions: Reason For Exam: Sacral redness 09/17/18 11:17 Neurology Consult Routine Comment: Consulting Provider: Salima Santacruz Consulting Physician: Salima Santacruz Reason for Consult: dementia/hand tremor Hospital Course - Lab Results Lab Results: Most Recent Lab Values WBC 11.6 K/uL (4.8-10.8) H 09/19/18 04:25 RBC 4.17 Mil/uL (3.80-5.20) 09/19/18 04:25 Hgb 11.0 g/dL (12.0-16.0) L 09/19/18 04:25 Hct 34.2 % (34.0-47.0) 09/19/18 04:25 MCV 81.9 fl (81.0-99.0) 09/19/18 04:25 MCH 26.3 pg (27.0-31.0) L 09/19/18 04:25 MCHC 32.2 g/dL (33.0-37.0) L 09/19/18 04:25 RDW 15.5 % (11.5-14.5) H 09/19/18 04:25 Plt Count 345 K/uL (130-400) 09/19/18 04:25 MPV 8.1 fl (7.2-11.7) 09/15/18 15:15 Neut % (Auto) 68.1 % (50.0-75.0) 09/15/18 15:15 Lymph % (Auto) 19.6 % (20.0-40.0) L 09/15/18 15:15 Grimes % (Auto) 6.5 % (0.0-10.0) 09/15/18 15:15 Eos % (Auto) 5.2 % (0.0-4.0) H 09/15/18 15:15 Baso % (Auto) 0.6 % (0.0-2.0) 09/15/18 15:15 Neut # (Auto) 8.2 K/uL (1.8-7.0) H 09/15/18 15:15 Lymph # (Auto) 2.4 K/uL (1.0-4.3) 09/15/18 15:15 Grimes # (Auto) 0.8 K/uL (0.0-0.8) 09/15/18 15:15 Eos # (Auto) 0.6 K/uL (0.0-0.7) 09/15/18 15:15 Baso # (Auto) 0.1 K/uL (0.0-0.2) 09/15/18 15:15 Sodium 130 mmol/l (132-148) L 09/22/18 05:30 Potassium 4.8 MMOL/L (3.6-5.0) 09/22/18 05:30 Chloride 92 mmol/L (98-107) L 09/22/18 05:30 Carbon Dioxide 29 mmol/L (22-30) 09/22/18 05:30 Anion Gap 14 (10-20) 09/22/18 05:30 BUN 25 mg/dl (7-17) H 09/22/18 05:30 Creatinine 0.7 mg/dl (0.7-1.2) 09/22/18 05:30 Est GFR ( Amer) > 60 09/22/18 05:30 Est GFR (Non-Af Amer) > 60 09/22/18 05:30 POC Glucose (mg/dL) 291 mg/dL (65-110) H 09/22/18 15:38 Random Glucose 312 mg/dL (65-105) H 09/22/18 05:30 Serum Osmolality 287 mosm/kg (272-300) 09/20/18 16:07 Calcium 9.2 mg/dL (8.4-10.2) 09/22/18 05:30 Total Bilirubin 0.3 mg/dl (0.2-1.3) 09/18/18 06:00 AST 22 U/L (14-36) 09/18/18 06:00 ALT 17 U/L (9-52) 09/18/18 06:00 Alkaline Phosphatase 110 U/L (38-126) 09/18/18 06:00 Troponin I 0.0350 ng/mL (0.00-0.120) 09/15/18 15:15 NT-Pro-B Natriuret Pep 1010 pg/ml (0-900) H 09/15/18 18:45 Total Protein 6.2 G/DL (6.3-8.2) L 09/18/18 06:00 Albumin 2.9 g/dL (3.5-5.0) L 09/18/18 06:00 Globulin 3.3 gm/dL (2.2-3.9) 09/18/18 06:00 Albumin/Globulin Ratio 0.9 (1.0-2.1) L 09/18/18 06:00 Attending/Attestation - Attestation I have personally seen and examined this patient.: Yes I have fully participated in the care of the patient.: Yes I have reviewed all pertinent clinical information, including history, physical exam and plan: Yes
[2018-09-22 15:58] VITALS: BP 163/70; PULSE 94; TEMP 98.5
--- NOTE | 2018-09-26 11:30 | CP.PCM.PN ---
Subjective - Date & Time of Evaluation Date of Evaluation: 09/19/18 Time of Evaluation: 11:00 - Subjective Subjective: Subjective patient seen and examined at bedside. Interim events noted No complaints offered at this time denies cp/sob/fever/chills. all available diagnostic data reviewed Objective Vital Signs Stable - Constitutional Appears: Non-toxic, No Acute Distress - Head Exam Head Exam: NORMAL INSPECTION - Eye Exam Eye Exam: Normal appearance - Respiratory Exam Respiratory Exam: NORMAL BREATHING PATTERN - Cardiovascular Exam Cardiovascular Exam: +S1, +S2 - GI/Abdominal Exam GI & Abdominal Exam: Soft - Neurological Exam Neurological Exam: Alert, Awake - Psychiatric Exam Psychiatric exam: Normal Affect, Normal Mood - Skin Skin Exam: Normal Color, Warm Assessment and Plan monitor vitals monitor labs Cont meds Cont tx consultants appreciated input rest of plan as ordered
--- NOTE | 2018-09-26 11:37 | PQF ---
PROVIDER RESPONSE TEXT: Heart failure with preserved systolic function REVIEWER QUERY TEXT: Heart Failure Acuity and Type Hx. of Congestive Heart Failure is documented in the Medical Record. Please document the type and acu ity (includes probable or suspected) versus No CHF: history only and not a chronic condition Such as: Type: -- Combined systolic and diastolic (heart failure with reduced ejection fraction and diastolic) dysfu nction -- Diastolic (HFpEF) -- Systolic (HFrEF) -- Left heart failure -- Right heart failure -- Right heart failure due to left heart failure -- High output failure -- End stage heart failure -- Other, please specify Acuity: -- Acute -- Chronic -- Acute on chronic -- Other, please specify ProBNP:1010 CXR: report: No interval acute cardiopulmonary disease appreciated. Limited fibrotic changes remain a t the left base. 09/17 Echo report: Conclusion:The left ventricle is normal size. There is mild concentric left ventric ular hypertrophy. The left ventricular function is normal. LVEF is 60-65%. There is normal LV segment al wall motion. Transmitral Doppler flow pattern is Grade I-abnormal relaxation pattern. H and P: Hx Congestive Heart Failure: Yes Cardiology consult includes: There is no hx. suggestive of CHF --lasix daily, coreg The patient's Clinical Indicators include: -- Query created by: Chloe Damon on 09/20/2018 3:13 PM Electronically signed by: Chong Aguila 09/26/2018 11:34 AM
== END 2018-09-22 17:35 | DRG 641 ==
LOC: H.ER 14:31 → H.ERHOLD 19:20 → H.TEL 22:13
PROVIDERS: ADMIT Family Medicine; ATTEND Family Medicine
DX: E87.1 Hypo-osmolality and hyponatremia (principal); I50.22 Chronic systolic (congestive) heart failure; S82.64XA Nondisplaced fracture of lateral malleolus of right fibula, initial encounter for closed fracture; E11.65 Type 2 diabetes mellitus with hyperglycemia; I44.7 Left bundle-branch block, unspecified; F03.90 Unspecified dementia, unspecified severity, without behavioral disturbance, psychotic disturbance, mood disturbance, and anxiety; I11.0 Hypertensive heart disease with heart failure; I44.30 Unspecified atrioventricular block; R55 Syncope and collapse; M81.0 Age-related osteoporosis without current pathological fracture; M19.071 Primary osteoarthritis, right ankle and foot; E78.00 Pure hypercholesterolemia, unspecified; W19.XXXA Unspecified fall, initial encounter; Z79.4 Long term (current) use of insulin; Z79.84 Long term (current) use of oral hypoglycemic drugs; Z79.82 Long term (current) use of aspirin; Z88.0 Allergy status to penicillin; Z87.81 Personal history of (healed) traumatic fracture; Y92.009 Unspecified place in unspecified non-institutional (private) residence as the place of occurrence of the external cause

== ENCOUNTER 2018-09-25 14:18 | Observation (INO) | payer MEDICARE, MEDICAID ==
[2018-09-25 14:20] VITALS: BMI 20.1
[2018-09-25 15:20] LABS: BASO % 0.2 % (0.0-2.0); EOS # 1.1 K/uL (0.0-0.7); EOS % 8.6 % (0.0-4.0); LYMPH # 2.7 K/uL (1.0-4.3); LYMPH % 21.8 % (20.0-40.0); MEAN CORPUSCULAR HEMOGLOBIN 27.3 pg (27.0-31.0); MEAN CORPUSCULAR HGB CONC 32.9 g/dL (33.0-37.0); MEAN PLATELET VOLUME 7.8 fl (7.2-11.7); MONO # 0.8 K/uL (0.0-0.8); MONO % 6.5 % (0.0-10.0); NEUT # 7.8 K/uL (1.8-7.0); NEUT % 62.9 % (50.0-75.0); NRBC % 0.1 % (0.0-0.0); RBC 4.03 Mil/uL (3.80-5.20); RED CELL DISTRIBUTION WIDTH 15.6 % (11.5-14.5); WHITE BLOOD COUNT 12.5 K/uL (4.8-10.8)
[2018-09-25 16:02] LABS: ALB/GLOB RATIO 0.9 (1.0-2.1); ALBUMIN 3.1 g/dL (3.5-5.0); ALT/SGPT 30 U/L (9-52); AST/SGOT 20 U/L (14-36); BLOOD UREA NITROGEN 31 mg/dl (7-17); CALCIUM 9.3 mg/dL (8.4-10.2); GFR NON-AFRICAN AMERICAN 60
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
--- NOTE | 2018-09-25 18:43 | ED PDOC ---
HPI: General Adult Time Seen by Provider: 09/25/18 14:54 Chief Complaint (Nursing): Medical Clearance Chief Complaint (Provider): Fall History Per: Patient, Family History/Exam Limitations: no limitations Onset/Duration Of Symptoms: Hrs, Sudden Onset Have you had recent travel within the past 21 days to any of the following countries: [place], [place], [place] or [place]?: No Current Symptoms Are (Timing): Better Severity: Mild Pain Scale Rating Of: 2 Additional Complaint(s): Pt presents via EMS from [facility] with distorted history that involves fall, but there were apparently no witnesses and no ortiz consistent with trauma. The patient fx her right ankle and was treated here last week. Her family desires her to be moved from [facility]. The patient has the comorbidities of past CHF, ventricular enlargement, D2M, and HTN. The patient is also mildly demented and has difficulty verbally responding to the questions Past Medical History Reviewed: Historical Data, Nursing Documentation, Vital Signs Vital Signs: Last Vital Signs Temp 98.6 F 09/25/18 14:26 Pulse 79 09/25/18 14:26 Resp 18 09/25/18 14:26 BP 122/63 09/25/18 14:26 Pulse Ox 99 09/25/18 14:26 - Medical History PMH: CHF, Dementia, Diabetes, Fractures, HTN, Hypercholesterolemia, Osteoporosis Denies: HIV, Chronic Kidney Disease - Surgical History Surgical History: Cholecystectomy - Family History Family History: States: Unknown Family Hx - Home Medications Home Medications: Ambulatory Orders Medication Instructions Recorded Furosemide [Lasix] 10 tab PO DAILY 12/06/15 Isosorbide Mononitrate ER [Imdur 30 mg PO DAILY 12/06/15 ER] Aspirin [Ecotrin] 81 mg PO DAILY 06/01/17 Cholecalciferol [Vitamin D 1000 IU] 1,000 unit PO DAILY 06/01/17 Ferrous Sulfate [Feosol] 325 mg PO MWF 06/01/17 SITagliptin [Januvia] 100 mg PO DAILY 06/01/17 Insulin Glargine, Recombina 24 unit SC HS 09/15/18 [Lantus] Acetaminophen [Tylenol 325mg tab] 650 mg PO Q4 PRN tab 09/19/18 Insulin Human Regular [HumuLIN R] 0 units SC ACCU-CHECK ml 09/19/18 Magnesium Hydroxide [Milk of 5 ml PO DAILY PRN 09/25/18 Magnesia] - Allergies Allergies/Adverse Reactions: Allergies Allergy/AdvReac Type Severity Reaction Status Date / Time ampicillin Allergy RASH Verified 09/15/18 14:32 Penicillins Allergy RASH Verified 09/15/18 14:32 Review of Systems ROS Statement: Except As Marked, All Systems Reviewed And Found Negative Review Of Systems: ROS cannot be obtained secondary to pt's inabilty to answer questions. Skin: Positive for: Lesions (two bed sores on gluteus) Neurological: Positive for: Confusion, Altered Mental Status Psych: Positive for: Other Physical Exam - Reviewed Nursing Documentation Reviewed: Yes Vital Signs Reviewed: Yes - Physical Exam Appears: Positive for: No Acute Distress. Negative for: Uncomfortable Head Exam: Positive for: ATRAUMATIC, NORMAL INSPECTION Skin: Positive for: Normal Color, Warm, Dry, Rash (bed sores on gluteus) Eye Exam: Positive for: Normal appearance, EOMI, PERRL. Negative for: Nystagmus, Periorbital swelling, Periorbital tenderness Cardiovascular/Chest: Positive for: Regular Rate, Rhythm, Chest Non Tender. Negative for: Edema, Gallop, Bradycardia, Tachycardia Respiratory: Positive for: Normal Breath Sounds. Negative for: Decreased Breath Sounds, Accessory Muscle Use, Crackles, Rales, Stridor, Wheezing, Respiratory Distress Pulses-Carotid (L): 1+ Pulses-Carotid (R): 1+ Pulses-Radial (L): 2+ Pulses-Radial (R): 2+ Back: Positive for: Normal Inspection. Negative for: L CVA Tenderness, R CVA Tenderness - Laboratory Results Result Diagrams: 09/25/18 15:16 09/25/18 15:16 - ECG ECG: Positive for: Interpreted By Me ECG Rhythm: Negative for: Normal QRS Interpretation Of Abn EKG: ventricular enlargemnt O2 Sat by Pulse Oximetry: 99 Medical Decision Making Medical Decision Making: FAmily desires admission to clear path for pt to leave [facility]; discussed findings with Dr Krishna and he agreed to admit for obs for UTI, falls with cardiac hx CT Head negative elevated leukocytoiss Disposition - Clinical Impression Clinical Impression: Fall, Congestive cardiac failure - Patient ED Disposition Is Patient to be Admitted: Yes Discussed With : Chong Aguila Doctor Will See Patient In The: Hospital Counseled Patient/Family Regarding: Studies Performed, Diagnosis, Need For Followup - Disposition Disposition Time: 18:56 Condition: STABLE - Pt Status Changed To: Hospital Disposition Of: Observation - POA Present On Arrival: None
[2018-09-25] MEDS ORDERED: Magnesium Hydroxide Susp 30 ml UD PO PRN (20:35)
[2018-09-25] MEDS ORDERED: Insulin Detemir 100 Units/ml Inj SC SCH (22:00)
[2018-09-25] MEDS: Insulin Regular 100 units/ml SC SCH (23:24)
[2018-09-25] MEDS: Sodium Chloride 0.9% 1,000 ML IV SCH (23:51)
[2018-09-26 07:10] LABS: HEMOGLOBIN 11.3 g/dL (12.0-16.0); MEAN CELL VOLUME 82.5 fl (81.0-99.0); MEAN CORPUSCULAR HEMOGLOBIN 26.6 pg (27.0-31.0); MEAN CORPUSCULAR HGB CONC 32.3 g/dL (33.0-37.0); RBC 4.26 Mil/uL (3.80-5.20); RED CELL DISTRIBUTION WIDTH 15.7 % (11.5-14.5); WHITE BLOOD COUNT 11.7 K/uL (4.8-10.8)
[2018-09-26 07:14] LABS: ALB/GLOB RATIO 0.9 (1.0-2.1); ALBUMIN 3.1 g/dL (3.5-5.0); ALT/SGPT 23 U/L (9-52); AST/SGOT 21 U/L (14-36); BLOOD UREA NITROGEN 22 mg/dl (7-17); CALCIUM 8.6 mg/dL (8.4-10.2); GFR NON-AFRICAN AMERICAN > 60
--- NOTE | 2018-09-26 09:07 | RAD ---
Date of service: 09/25/2018 HISTORY: r/o chf COMPARISON: 09/15/2018 FINDINGS: LUNGS: Patchy perihilar infiltrates bilaterally common new finding. PLEURA: No significant pleural effusion identified, no pneumothorax apparent. CARDIOVASCULAR: No atherosclerotic calcification present Normal. OSSEOUS STRUCTURES: No significant abnormalities. VISUALIZED UPPER ABDOMEN: Normal. OTHER FINDINGS: None. IMPRESSION: Mild pulmonary edema/CHF manifest as patchy perihilar infiltrates.
[2018-09-26] MEDS: Insulin Regular 100 units/ml SC SCH ×4 (09:15→23:26)
[2018-09-26] MEDS: Sodium Chloride 0.9% 1,000 ML IV SCH (09:18)
[2018-09-26] MEDS: Cholecalciferol 1,000 INTLU TAB PO SCH (09:19)
--- NOTE | 2018-09-26 11:35 | CARD ---
APPROVED REPORT Date of service: 09/25/2018 EKG Measurement Heart [id number] <Conclusion> Normal sinus rhythm with premature atrial complexes Left axis deviation Left ventricular hypertrophy with QRS widening and repolarization abnormality Abnormal ECG
[2018-09-26] MEDS: Megestrol Acetate 40 mg/ml Cup PO SCH (11:36)
[2018-09-26] MEDS ORDERED: Insulin Regular 100 units/ml ONE (12:51)
--- NOTE | 2018-09-26 14:02 | RAD ---
Date of service: She 09/26/2018 PROCEDURE: Right Foot Radiographs. HISTORY: right nondisplaced ankle fracture COMPARISON: 09/15/2018 FINDINGS: BONES: No visible/acute fracture. JOINTS: Degenerative changes/hammertoe deformities noted SOFT TISSUES: . Soft tissue swelling identified on the prior study has improved. OTHER FINDINGS: None. IMPRESSION: No acute findings. Decrease in soft tissue swelling
--- NOTE | 2018-09-26 14:04 | RAD ---
Date of service: 09/26/2018 PROCEDURE: Right Ankle Radiographs. HISTORY: right nondisplaced ankle fracture COMPARISON: 09/15/2018 FINDINGS: BONES: Major fracture fragments distal fibula anatomically aligned. JOINTS: Normal. No osteoarthritis. Ankle mortise maintained. Talar dome intact SOFT TISSUES: Decrease in soft tissue swelling compared to the prior study. OTHER FINDINGS: Evidence of old distal tibial fracture. IMPRESSION: Anatomically aligned major fracture fragments distal right fibula. Decrease in soft tissue swelling. Limitations of the current study: Detail obscured by overlying fiberglass cast.
[2018-09-26] MEDS: Insulin Detemir 100 Units/ml Inj SC SCH (22:25)
[2018-09-27] MEDS: Insulin Regular 100 units/ml SC SCH ×4 (09:37→22:03)
--- NOTE | 2018-09-27 09:56 | CP.PCM.CON ---
History of Present Illness - History of Present Illness History of Present Illness: Podiatry consult note for Dr. Mcconnell 83F with pmhx of Dementia, Diabetes, Fractures, HTN, Hypercholesterolemia, Osteoporosis seen and evaluated for right ankle pain. She presents with her and daughter. States that she fell in her home and twisted her ankle on 09/15/18. States that her was able to help her down but she was unable to stand back up and was in a lot of pain. States she noticed swelling and bruising to the ankle. States she had injured her other ankle a long time ago and that hardware was used to repair it. Denies N/V/F/C/SOB/CP and has no other pedal complaints today. Patient was recently admitted and seen for the same complaint PMHx - Dementia, Diabetes, Fractures, HTN, Hypercholesterolemia, Osteoporosis PSHx - Cholecystectomy All - penicillins Review of Systems - Review of Systems All systems: reviewed and no additional remarkable complaints except Review of Systems: As per HPI Past Patient History - Infectious Disease Hx of Infectious Diseases: None - Past Medical History & Family History Past Medical History?: Yes - Past Social History Smoking Status: Never Smoked - CARDIAC Hx Congestive Heart Failure: Yes Hx Hypercholesterolemia: Yes Hx Hypertension: Yes - PULMONARY Hx Respiratory Disorders: No - NEUROLOGICAL Hx Dementia: Yes - HEENT Hx HEENT Problems: No - RENAL Hx Chronic Kidney Disease: No - ENDOCRINE/METABOLIC Hx Endocrine Disorders: Yes (DM) Hx Diabetes Mellitus Type 2: Yes - HEMATOLOGICAL/ONCOLOGICAL Hx Human Immunodeficiency Virus (HIV): No - INTEGUMENTARY Hx Dermatological Problems: No - MUSCULOSKELETAL/RHEUMATOLOGICAL Hx Falls: Yes Hx Fractures: Yes Hx Osteoporosis: Yes - GASTROINTESTINAL Hx Gastrointestinal Disorders: Yes Hx Colostomy: Yes Other/Comment: hx of bowel obstruction - GENITOURINARY/GYNECOLOGICAL Hx Genitourinary Disorders: Yes Hx Incontinence: Yes - PSYCHIATRIC Hx Psychophysiologic Disorder: No Hx Substance Use: No - SURGICAL HISTORY Hx Cholecystectomy: Yes - ANESTHESIA Hx Anesthesia: Yes Hx Anesthesia Reactions: No Hx Malignant Hyperthermia: No Meds Allergies/Adverse Reactions: Allergies Allergy/AdvReac Type Severity Reaction Status Date / Time ampicillin Allergy RASH Verified 09/15/18 14:32 Penicillins Allergy RASH Verified 09/15/18 14:32 - Medications Medications: Current Medications Acetaminophen (Tylenol 325mg Tab) 650 mg PO Q4 PRN PRN Reason: Pain, Mild (1-3) Aspirin (Ecotrin) 81 mg PO DAILY [facility] Last Admin: 09/26/18 09:18 Dose: 81 mg Cholecalciferol (Vitamin D) 1,000 intlu PO DAILY [facility] Last Admin: 09/26/18 09:19 Dose: 1,000 intlu Ferrous Sulfate (Feosol) 325 mg PO MWF [facility] Last Admin: 09/26/18 09:19 Dose: 325 mg Furosemide (Lasix) 20 mg PO DAILY [facility] Last Admin: 09/26/18 11:36 Dose: 20 mg Insulin Detemir (Levemir) 16 units SC [facility] Last Admin: 09/26/18 22:25 Dose: 16 units Insulin Human Regular (Humulin R) 0 units SC ACCU-CHECK [facility]; Protocol Last Admin: 09/27/18 09:37 Dose: 2 unit Isosorbide Mononitrate (Imdur Er) 30 mg PO DAILY [facility] Last Admin: 09/26/18 09:19 Dose: 30 mg Magnesium Hydroxide (Milk Of Magnesia) 5 ml PO DAILY PRN PRN Reason: Constipation Megestrol Acetate (Megace) 400 mg PO DAILY [facility] Last Admin: 09/26/18 11:36 Dose: 400 mg Sitagliptin Phosphate (Januvia) 100 mg PO DAILY [facility] Last Admin: 09/26/18 09:14 Dose: Not Given Physical Exam - Constitutional Appears: Well, Non-toxic, No Acute Distress - Head Exam Head Exam: ATRAUMATIC, NORMOCEPHALIC - Extremities Exam Additional comments: Patient still in posterior splint, C/D/I Patient able to wiggle digits, and denies any pain - Neurological Exam Neurological exam: Alert, Oriented x3 - Psychiatric Exam Psychiatric exam: Normal Affect, Normal Mood ( ) Results - Vital Signs Recent Vital Signs: Last Vital Signs Temp 97.7 F 09/27/18 08:26 Pulse 49 L 09/27/18 08:26 Resp 18 09/27/18 08:26 BP 110/67 09/27/18 08:26 Pulse Ox 99 09/27/18 08:26 - Labs Result Diagrams: 09/26/18 06:00 09/26/18 06:00 Labs: Laboratory Results - last 24 hr 09/26/18 09/26/18 09/26/18 06:00 08:10 12:38 POC Glucose (mg/dL) 44 L 240 H Procalcitonin 0.05 L 09/26/18 09/26/18 17:17 23:23 POC Glucose (mg/dL) 340 H 311 H Procalcitonin Assessment & Plan - Assessment and Plan (Free Text) Assessment: 83F pmhx Dementia, Diabetes, Fractures, HTN, Hypercholesterolemia, Osteoporosis with right nondisplaced ankle fracture Plan: Patient seen and evaluated Discussed in detail with Dr. Mcconnell Right ankle x-ray reviewed - tib fib fracture, nondisplaced; degenerative joint disease and osteoporosis Repeat X-rays ordered of the right ankle Instructed to remain nonweight-bearing and educated on RICE protocol Light Cano compression and posterior splint with heel cup applied to patient Podiatry will continue to follow patient while in house - Date & Time Date: 09/27/18 Time: 09:57
[2018-09-27] MEDS: Megestrol Acetate 40 mg/ml Cup PO SCH (10:03)
[2018-09-27] MEDS: Cholecalciferol 1,000 INTLU TAB PO SCH (10:06)
--- NOTE | 2018-09-27 11:28 | RAD ---
Date of service: 09/27/2018 PROCEDURE: Right Ankle Radiographs. HISTORY: previous right ankle xray COMPARISON: 09/15/2018 FINDINGS: BONES: Cast obscures fine bony detail. There is a healing oblique nondisplaced fracture in the lateral malleolus. There is diffuse bone demineralization. Bone alignment is normal. JOINTS: Normal. No osteoarthritis. Ankle mortise maintained. Talar dome intact SOFT TISSUES: Mild lateral soft tissue swelling. OTHER FINDINGS: None. IMPRESSION: Cast obscures fine bony details. Healing oblique nondisplaced fracture in the lateral malleolus. Mild lateral soft tissue swelling.
--- NOTE | 2018-09-27 14:14 | CP.PCM.HP ---
History of Present Illness - History of Present Illness History of Present Illness: HPI: 83 female with pmhx of Dementia, Diabetes, Fractures, HTN, Hypercholesterolemia, Osteoporosis admitted for unwitnessed fall at [facility]. Was recently admitted for fall and found to have nondisplaced R. ankle fracture which was managed non operatively by podiatry and she was discharged to subacute rehab 3 days ago. Podiatry was consulted in the ED and foot and ankle Xrays were ordered. Pt reports R. ankle pain. Denies syncopy, CP, souch, sob, fevers/chills, dysuria, n/v/d. PMHx - Dementia, Diabetes, Fractures, HTN, Hypercholesterolemia, Osteoporosis PSHx - Cholecystectomy Allergies - penicillins Present on Admission - Present on Admission Any Indicators Present on Admission: No Past Patient History - Infectious Disease Hx of Infectious Diseases: None - Past Medical History & Family History Past Medical History?: Yes - Past Social History Smoking Status: Never Smoked - CARDIAC Hx Congestive Heart Failure: Yes Hx Hypercholesterolemia: Yes Hx Hypertension: Yes - PULMONARY Hx Respiratory Disorders: No - NEUROLOGICAL Hx Dementia: Yes - HEENT Hx HEENT Problems: No - RENAL Hx Chronic Kidney Disease: No - ENDOCRINE/METABOLIC Hx Endocrine Disorders: Yes (DM) Hx Diabetes Mellitus Type 2: Yes - HEMATOLOGICAL/ONCOLOGICAL Hx Human Immunodeficiency Virus (HIV): No - INTEGUMENTARY Hx Dermatological Problems: No - MUSCULOSKELETAL/RHEUMATOLOGICAL Hx Falls: Yes Hx Fractures: Yes Hx Osteoporosis: Yes - GASTROINTESTINAL Hx Gastrointestinal Disorders: Yes Hx Colostomy: Yes Other/Comment: hx of bowel obstruction - GENITOURINARY/GYNECOLOGICAL Hx Genitourinary Disorders: Yes Hx Incontinence: Yes - PSYCHIATRIC Hx Psychophysiologic Disorder: No Hx Substance Use: No - SURGICAL HISTORY Hx Cholecystectomy: Yes - ANESTHESIA Hx Anesthesia: Yes Hx Anesthesia Reactions: No Hx Malignant Hyperthermia: No Meds Allergies/Adverse Reactions: Allergies Allergy/AdvReac Type Severity Reaction Status Date / Time ampicillin Allergy RASH Verified 09/15/18 14:32 Penicillins Allergy RASH Verified 09/15/18 14:32 Physical Exam - Constitutional Appears: No Acute Distress - Head Exam Head Exam: NORMAL INSPECTION - Eye Exam Eye Exam: Normal appearance - ENT Exam ENT Exam: Mucous Membranes Moist - Respiratory Exam Respiratory Exam: Decreased Breath Sounds, Rales (BL lung bases). absent: Accessory Muscle Use, Wheezes - Cardiovascular Exam Cardiovascular Exam: REGULAR RHYTHM - Extremities Exam Extremities exam: Negative for: pedal edema Additional comments: Wrapped in bandage. toes visible, pink, warm, with good capillary refilll. Motor and sensory in tact - Neurological Exam Neurological exam: Alert, Oriented x3 - Psychiatric Exam Psychiatric exam: Normal Affect - Skin Skin Exam: Normal Color Results - Vital Signs Recent Vital Signs: Last Vital Signs Temp 97.7 F 09/27/18 09:00 Pulse 49 L 09/27/18 09:00 Resp 18 09/27/18 09:00 BP 135/71 09/27/18 10:00 Pulse Ox 99 09/27/18 09:00 - Labs Result Diagrams: 09/26/18 06:00 09/26/18 06:00 Labs: Laboratory Results - last 24 hr 09/26/18 09/26/18 09/27/18 17:17 23:23 11:31 POC Glucose (mg/dL) 340 H 311 H 271 H Assessment & Plan - Assessment and Plan (Free Text) Assessment: 83 female with pmhx of Dementia, Diabetes, Fractures, HTN, Hy percholesterolemia, Osteoporosis admitted for unwitnessed fall at [facility]. Ankle Fx -repeat Ankle and Foot Xray reveal nondisplaced fx consistent w/ prior studies -Will f/u with Podiatry's reccs -SW needed as family wants to take patient home and would like home with services -Pain controlled -Hemodynamically stable -Mild leukocytosis, improving -Hypoglycemic episode, reduced home insulin to 16 units at night, started Metformin, discontinued Januvia -Lasix daily for mild pulmonary edema -C/w plan as ordered D/W Dr. Aguila
--- NOTE | 2018-09-27 14:51 | CP.PCM.PN ---
Subjective - Date & Time of Evaluation Date of Evaluation: 09/27/18 Time of Evaluation: 09:00 - Subjective Subjective: Pt seen and examined this morning. Pt seen after returning from [facility]. No complaints offered. Family at bedside, discussed plans. Objective - Vital Signs/Intake and Output Vital Signs (last 24 hours): Temp Pulse Resp BP Pulse Ox 97.7 F 49 L 18 135/71 99 09/27/18 09:00 09/27/18 09:00 09/27/18 09:00 09/27/18 10:00 09/27/18 09:00 - Medications Medications: Current Medications Acetaminophen (Tylenol 325mg Tab) 650 mg PO Q4 PRN PRN Reason: Pain, Mild (1-3) Aspirin (Ecotrin) 81 mg PO DAILY [facility] Last Admin: 09/27/18 09:57 Dose: 81 mg Cholecalciferol (Vitamin D) 1,000 intlu PO DAILY [facility] Last Admin: 09/27/18 10:06 Dose: 1,000 intlu Ferrous Sulfate (Feosol) 325 mg PO MWF [facility] Last Admin: 09/26/18 09:19 Dose: 325 mg Furosemide (Lasix) 20 mg PO DAILY [facility] Last Admin: 09/27/18 10:00 Dose: 20 mg Insulin Detemir (Levemir) 16 units SC HS [facility] Last Admin: 09/26/18 22:25 Dose: 16 units Insulin Human Regular (Humulin R) 0 units SC ACCU-CHECK [facility]; Protocol Last Admin: 09/27/18 13:21 Dose: 3 unit Isosorbide Mononitrate (Imdur Er) 30 mg PO DAILY [facility] Last Admin: 09/27/18 09:58 Dose: 30 mg Magnesium Hydroxide (Milk Of Magnesia) 5 ml PO DAILY PRN PRN Reason: Constipation Megestrol Acetate (Megace) 400 mg PO DAILY [facility] Last Admin: 09/27/18 10:03 Dose: 400 mg Metformin HCl (Glucophage) 1,000 mg PO BIDWM [facility] Last Admin: 09/27/18 13:21 Dose: 1,000 mg - Labs Labs: 09/26/18 06:00 09/26/18 06:00 - Constitutional Appears: No Acute Distress - Head Exam Head Exam: NORMAL INSPECTION - Eye Exam Eye Exam: Normal appearance - ENT Exam ENT Exam: Mucous Membranes Moist - Respiratory Exam Respiratory Exam: Clear to Ausculation Bilateral - Cardiovascular Exam Cardiovascular Exam: REGULAR RHYTHM - GI/Abdominal Exam GI & Abdominal Exam: Soft, Normal Bowel Sounds - Extremities Exam Additional comments: Wrapped in bandage. toes visible, pink, warm, with good capillary refilll. Motor and sensory in tact - Neurological Exam Neurological Exam: Alert, Awake - Psychiatric Exam Psychiatric exam: Normal Affect - Skin Skin Exam: Normal Color Assessment and Plan - Assessment and Plan (Free Text) Assessment: 83 female with pmhx of Dementia, Diabetes, Fractures, HTN, Hypercholesterolemia , Osteoporosis admitted for unwitnessed fall at [facility]. Ankle Fx -repeat Ankle and Foot Xray reveal nondisplaced fx consistent w/ prior studies -Will f/u with Podiatry's reccs -SW needed as family wants to take patient home and would like home with services -Pain controlled -Hemodynamically stable -Mild leukocytosis, improving -Hypoglycemic episode, reduced home insulin to 16 units at night, started Metformin, discontinued Januvia -Lasix daily for mild pulmonary edema -C/w plan as ordered D/W Dr. Aguila
[2018-09-27 16:10] VITALS: RESP 20
[2018-09-27] MEDS: Insulin Detemir 100 Units/ml Inj SC SCH (21:38)
[2018-09-27 23:49] VITALS: O2SAT 96
[2018-09-28 06:45] LABS: HEMOGLOBIN 10.9 g/dL (12.0-16.0); MEAN CELL VOLUME 83.5 fl (81.0-99.0); MEAN CORPUSCULAR HEMOGLOBIN 26.1 pg (27.0-31.0); MEAN CORPUSCULAR HGB CONC 31.2 g/dL (33.0-37.0); RBC 4.19 Mil/uL (3.80-5.20); RED CELL DISTRIBUTION WIDTH 15.8 % (11.5-14.5); WHITE BLOOD COUNT 12.5 K/uL (4.8-10.8)
[2018-09-28] MEDS: Insulin Regular 100 units/ml SC SCH ×2 (06:57→11:41)
[2018-09-28 09:25] VITALS: BP 146/75; PULSE 78; TEMP 97.9
[2018-09-28] MEDS ORDERED: Enoxaparin 40 mg Syringe SC SCH (09:45)
[2018-09-28] MEDS: Cholecalciferol 1,000 INTLU TAB PO SCH (10:07)
[2018-09-28] MEDS: Megestrol Acetate 40 mg/ml Cup PO SCH (10:07)
--- NOTE | 2018-09-28 10:24 | CP.PCM.PN ---
Subjective - Date & Time of Evaluation Date of Evaluation: 09/28/18 Time of Evaluation: 10:20 - Subjective Subjective: Podiatry progress note for Dr. Mcconnell 83F seen and evaluated at bedside for right ankle pain. Patient was seen resting comfortably. Patient reports no pain in right ankle, resolved since admission. Patient posterior splint was removed yesterday. Denies n/v/f/d/c/sob. No new complaints. Objective - Vital Signs/Intake and Output Vital Signs (last 24 hours): Temp Pulse Resp BP Pulse Ox 97.9 F 78 20 146/75 96 09/28/18 09:00 09/28/18 09:00 09/28/18 09:00 09/28/18 10:06 09/28/18 09:00 - Medications Medications: Current Medications Acetaminophen (Tylenol 325mg Tab) 650 mg PO Q4 PRN PRN Reason: Pain, Mild (1-3) Last Admin: 09/28/18 02:41 Dose: 650 mg Aspirin (Ecotrin) 81 mg PO DAILY [facility] Last Admin: 09/28/18 10:05 Dose: 81 mg Cholecalciferol (Vitamin D) 1,000 intlu PO DAILY [facility] Last Admin: 09/28/18 10:07 Dose: 1,000 intlu Enoxaparin Sodium (Lovenox) 40 mg SC DAILY [facility]; Protocol Ferrous Sulfate (Feosol) 325 mg PO MWF [facility] Last Admin: 09/28/18 10:05 Dose: 325 mg Furosemide (Lasix) 20 mg PO DAILY [facility] Last Admin: 09/28/18 10:06 Dose: 20 mg Insulin Detemir (Levemir) 16 units SC HS [facility] Last Admin: 09/27/18 21:38 Dose: 16 units Insulin Human Regular (Humulin R) 0 units SC ACCU-CHECK JAMAR; Protocol Last Admin: 09/28/18 06:57 Dose: 1 unit Isosorbide Mononitrate (Imdur Er) 30 mg PO DAILY [facility] Last Admin: 09/28/18 10:06 Dose: 30 mg Magnesium Hydroxide (Milk Of Magnesia) 5 ml PO DAILY PRN PRN Reason: Constipation Megestrol Acetate (Megace) 400 mg PO DAILY [facility] Last Admin: 09/28/18 10:07 Dose: 400 mg Metformin HCl (Glucophage) 1,000 mg PO BIDWM [facility] Last Admin: 09/28/18 10:06 Dose: 1,000 mg - Labs Labs: 09/28/18 06:15 09/26/18 06:00 - Constitutional Appears: Well, Non-toxic, No Acute Distress - Head Exam Head Exam: ATRAUMATIC, NORMOCEPHALIC - Extremities Exam Additional comments: RLE focused Vasc: DP and PT pulses palpable; cap refill <3 seconds to all digits; temp gradient warm to cool from proximal to distal; edema noted at the ankle M>L Derm: no open wounds or lesions noted; skin temp and turgor normal; ecchymosis present at the medial ankle Ortho: pain on palpation at the ankle M>L; muscle testing and ROM unattainable due to guarding and pain Neuro: gross and protective sensation intact - Neurological Exam Neurological Exam: Alert, Awake, Oriented x3 - Psychiatric Exam Psychiatric exam: Normal Affect, Normal Mood Assessment and Plan - Assessment and Plan (Free Text) Assessment: 83 y/o female patient with right non-displaced ankle fracture, improving Plan: Patient seen and evaluated Discussed in detail with Dr. Mcconnell Right ankle x-ray reviewed - tib fib fracture, nondisplaced; degenerative joint disease and osteoporosis Repeat X-rays ordered of the right ankle- healing oblique non-displaced fracture in the lateral malleolus, mid lateral soft tissue swelling Instructed to remain nonweight-bearing and educated on RICE protocol Light Cano compression and posterior splint with heel cup re-applied to patient, patient tolerated well Podiatry will continue to follow patient while in house
--- NOTE | 2018-09-28 17:47 | CP.PCM.DIS ---
Provider - Provider Date of Admission: 09/25/18 18:38 Attending physician: Chong Aguila MD Consults: 09/26/18 10:30 Podiatry Consult Stat Comment: Consulting Provider: Alf Mcconnell Consulting Physician: Alf Mcconnell Reason for Consult: right nondisplaced ankle fracture 09/26/18 10:31 Social Work Referral Routine Comment: placement Physician Instructions: Reason For Exam: placement 09/27/18 12:00 Nursing Referral for Wound Care Routine Comment: Physician Instructions: Reason For Exam: sacral opening found on admission Time Spent in preparation of Discharge (in minutes): 35 Diagnosis - Discharge Diagnosis (1) Fall Status: Resolved (2) Ankle fracture, right Status: Chronic Hospital Course - Lab Results Lab Results: Most Recent Lab Values WBC 12.5 K/uL (4.8-10.8) H 09/28/18 06:15 RBC 4.19 Mil/uL (3.80-5.20) 09/28/18 06:15 Hgb 10.9 g/dL (12.0-16.0) L 09/28/18 06:15 Hct 35.0 % (34.0-47.0) 09/28/18 06:15 MCV 83.5 fl (81.0-99.0) 09/28/18 06:15 MCH 26.1 pg (27.0-31.0) L 09/28/18 06:15 MCHC 31.2 g/dL (33.0-37.0) L 09/28/18 06:15 RDW 15.8 % (11.5-14.5) H 09/28/18 06:15 Plt Count 409 K/uL (130-400) H 09/28/18 06:15 MPV 7.8 fl (7.2-11.7) 09/25/18 15:16 Neut % (Auto) 62.9 % (50.0-75.0) 09/25/18 15:16 Lymph % (Auto) 21.8 % (20.0-40.0) 09/25/18 15:16 [place] % (Auto) 6.5 % (0.0-10.0) 09/25/18 15:16 Eos % (Auto) 8.6 % (0.0-4.0) H 09/25/18 15:16 Baso % (Auto) 0.2 % (0.0-2.0) 09/25/18 15:16 Neut # (Auto) 7.8 K/uL (1.8-7.0) H 09/25/18 15:16 Lymph # (Auto) 2.7 K/uL (1.0-4.3) 09/25/18 15:16 [place] # (Auto) 0.8 K/uL (0.0-0.8) 09/25/18 15:16 Eos # (Auto) 1.1 K/uL (0.0-0.7) H 09/25/18 15:16 Baso # (Auto) 0.0 K/uL (0.0-0.2) 09/25/18 15:16 Sodium 134 mmol/l (132-148) 09/26/18 06:00 Potassium 4.3 MMOL/L (3.6-5.0) 09/26/18 06:00 Chloride 98 mmol/L (98-107) 09/26/18 06:00 Carbon Dioxide 26 mmol/L (22-30) 09/26/18 06:00 Anion Gap 14 (10-20) 09/26/18 06:00 BUN 22 mg/dl (7-17) H 09/26/18 06:00 Creatinine 0.8 mg/dl (0.7-1.2) 09/26/18 06:00 Est GFR ( Amer) > 60 09/26/18 06:00 Est GFR (Non-Af Amer) > 60 09/26/18 06:00 POC Glucose (mg/dL) 182 mg/dL (65-110) H 09/28/18 05:48 Random Glucose 71 mg/dL (65-105) 09/26/18 06:00 Calcium 8.6 mg/dL (8.4-10.2) 09/26/18 06:00 Total Bilirubin 0.3 mg/dl (0.2-1.3) 09/26/18 06:00 AST 21 U/L (14-36) 09/26/18 06:00 ALT 23 U/L (9-52) 09/26/18 06:00 Alkaline Phosphatase 106 U/L (38-126) 09/26/18 06:00 Troponin I 0.0230 ng/mL (0.00-0.120) 09/25/18 15:16 Total Protein 6.5 G/DL (6.3-8.2) 09/26/18 06:00 Albumin 3.1 g/dL (3.5-5.0) L 09/26/18 06:00 Globulin 3.4 gm/dL (2.2-3.9) 09/26/18 06:00 Albumin/Globulin Ratio 0.9 (1.0-2.1) L 09/26/18 06:00 Procalcitonin 0.05 NG/ML (0.19-0.49) L 09/26/18 06:00 TSH 3rd Generation 1.11 mIU/ML (0.46-4.68) 09/26/18 06:00 Influenza Typ A,B (EIA) Negative for flu a/b (NEGATIVE) 09/25/18 15:16 - Hospital Course Hospital Course: 83 female with pmhx of Dementia, Diabetes, Fractures, HTN, Hypercholesterolemia, Osteoporosis admitted for unwitnessed fall at [facility]. Was recently admitted for fall and found to have nondisplaced R. ankle fracture which was managed non operatively by podiatry and she was discharged to subacute rehab 3 days ago. Podiatry was consulted. Repeat Ankle and Foot Xray reveal nondisplaced fx consistent w/ prior studies. Pt was evaluated by PT and cleared for discharge home with services. Family stated, they did not want pt to return to snf and wanted to take her home with them. Arrangements were made by social work so that patient could return home with family with services and get a hospital bed as well. Pt was stable for discharge. Discharge Exam - Head Exam Head Exam: ATRAUMATIC, NORMOCEPHALIC - Eye Exam Eye Exam: Normal appearance - ENT Exam ENT Exam: Mucous Membranes Moist - Respiratory Exam Respiratory Exam: Clear to PA & Lateral - Cardiovascular Exam Cardiovascular Exam: REGULAR RHYTHM - GI/Abdominal Exam GI & Abdominal Exam: Normal Bowel Sounds - Extremities Exam Extremities exam: normal capillary refill, pedal pulses present - Neurological Exam Neurological exam: Alert - Psychiatric Exam Psychiatric exam: Normal Affect - Skin Skin Exam: Normal Color Discharge Plan - Discharge Medications Prescriptions: MetFORMIN [glucoPHAGE] 1,000 mg PO BIDWM #60 tab - Follow Up Plan Condition: STABLE Disposition: HOME/ ROUTINE Instructions: Preventing Falls in the Older Adult, Dementia (DC) Additional Instructions: follow up with primary MD 1 week replicare dressing applied to right buttock every 2-3days Referrals: Alf Mcconnell DPM [Staff Provider] - Nikhil Crouch MD [Staff Provider] -
== END 2018-09-28 13:09 | disposition home health service (06) ==
LOC: H.ER 14:18 → H.ERHOLD 18:38 → H.MEDSURG1 09-26 17:00
PROVIDERS: ADMIT Family Medicine; ATTEND Family Medicine
DX: S82.891A Other fracture of right lower leg, initial encounter for closed fracture (principal); I11.0 Hypertensive heart disease with heart failure; I50.9 Heart failure, unspecified; E11.649 Type 2 diabetes mellitus with hypoglycemia without coma; F03.90 Unspecified dementia, unspecified severity, without behavioral disturbance, psychotic disturbance, mood disturbance, and anxiety; M81.0 Age-related osteoporosis without current pathological fracture; E78.00 Pure hypercholesterolemia, unspecified; D72.829 Elevated white blood cell count, unspecified; W19.XXXA Unspecified fall, initial encounter; Y92.129 Unspecified place in nursing home as the place of occurrence of the external cause; Z79.4 Long term (current) use of insulin; Z79.82 Long term (current) use of aspirin; Z93.3 Colostomy status; Z88.0 Allergy status to penicillin
CPT/HCPCS: 36415; 70450; 71045; 73610; 73630; 80053; 82948; 84145; 84443; 84484; 85025; 85027; 87804; 93005; 96372; 97162; 97530; 99285; G0378; G8978; G8979; J7030

== ENCOUNTER 2019-01-24 00:34 | Inpatient (IN) | payer MEDICARE, MEDICAID ==
[2019-01-24] MEDS ORDERED: Sodium Chloride 0.9% 1,000 ML IV STA ×2 (00:49→03:23)
[2019-01-24] MEDS ORDERED: Albuterol-Ipratrop 3 mg / 0.5 (3 ml) UD INH STA ×3 (01:15→01:33)
[2019-01-24] MEDS ORDERED: Albuterol-Ipratrop 3 mg / 0.5 (3 ml) UD ONE ×2 (01:24→02:27)
--- NOTE | 2019-01-24 01:31 | ED PDOC ---
HPI: SOB/CHF/COPD Time Seen by Provider: 01/24/19 00:45 Chief Complaint (Nursing): GI Problem Chief Complaint (Provider): GI Problem History Per: Family History/Exam Limitations: clinical condition (due to dementia) Onset/Duration Of Symptoms: Days (x2) Associated Symptoms: Other (Shortness of breath, vomiting and diarrhea) Additional Complaint(s): 83 years old female with history of CHF, diabetes, hypertension, dementia and pneumonia brought in by family for evaluation of shortness of breath, vomiting and diarrhea onset 2 days ago. Patient is bedbound and family states she developed symptoms with PO intake. Family reports patient has labored breathing. They spoke to nurse practitioner of the doctor that house visits patient and prescribed her antibiotics but she has not taken any of it. History is limited due to dementia. PMD: Cheli Samson Past Medical History Reviewed: Historical Data, Nursing Documentation, Vital Signs - Medical History PMH: CHF, Dementia, Diabetes, Fractures, HTN, Hypercholesterolemia, Osteoporosis Denies: HIV, Chronic Kidney Disease - Surgical History Surgical History: Cholecystectomy - Family History Family History: States: Unknown Family Hx - Social History Current smoker - smoking cessation education provided: No Alcohol: None Drugs: Denies - Home Medications Home Medications: Ambulatory Orders Medication Instructions Recorded Furosemide [Lasix] 10 tab PO DAILY 12/06/15 Isosorbide Mononitrate ER [Imdur 30 mg PO DAILY 12/06/15 ER] Aspirin [Ecotrin] 81 mg PO DAILY 06/01/17 Cholecalciferol [Vitamin D 1000 IU] 1,000 unit PO DAILY 06/01/17 Ferrous Sulfate [Feosol] 325 mg PO MWF 06/01/17 SITagliptin [Januvia] 100 mg PO DAILY 06/01/17 Insulin Glargine, Recombina 24 unit SC HS 09/15/18 [Lantus] Acetaminophen [Tylenol 325mg tab] 650 mg PO Q4 PRN tab 09/19/18 Insulin Human Regular [HumuLIN R] 0 units SC ACCU-CHECK ml 09/19/18 Magnesium Hydroxide [Milk of 5 ml PO DAILY PRN 09/25/18 Magnesia] MetFORMIN [glucoPHAGE] 1,000 mg PO BIDWM #60 tab 09/28/18 - Allergies Allergies/Adverse Reactions: Allergies Allergy/AdvReac Type Severity Reaction Status Date / Time ampicillin Allergy RASH Verified 09/15/18 14:32 Penicillins Allergy RASH Verified 09/15/18 14:32 Review of Systems ROS Statement: Except As Marked, All Systems Reviewed And Found Negative (as per daughter) Respiratory: Positive for: Shortness of Breath Gastrointestinal: Positive for: Vomiting, Abdominal Pain, Diarrhea Physical Exam - Reviewed Nursing Documentation Reviewed: Yes Vital Signs Reviewed: Yes - Physical Exam Appears: Positive for: No Acute Distress Head Exam: Positive for: ATRAUMATIC, NORMAL INSPECTION Skin: Positive for: Normal Color, Warm, Dry Eye Exam: Positive for: Normal appearance, EOMI, PERRL ENT: Positive for: Other (Mucous membrane dry) Neck: Positive for: Normal, Painless ROM, Supple Cardiovascular/Chest: Positive for: Regular Rate, Rhythm. Negative for: Murmur Respiratory: Positive for: Other (Tachypnic) Gastrointestinal/Abdominal: Positive for: Normal Exam, Soft. Negative for: Tenderness Back: Positive for: Normal Inspection. Negative for: L CVA Tenderness, R CVA Tenderness Extremity: Positive for: Normal ROM. Negative for: Pedal Edema, Deformity Neurological/Psych: Positive for: Awake, Alert - Laboratory Results Result Diagrams: 01/24/19 02:05 01/24/19 02:05 - Critical Care Total Time (In Min): 60 Documented Critical Care: Time excludes all time spent performint seperately billable procedures Medical Decision Making Medical Decision Making: Time: 011 Initial Impression: 83 y/o female with shortness of breath insetting of pneumonia Initial Plan: --BNP --CMP --Lactic acid --Troponin --CBC --Chest x-ray --Albuterol 3 ml INH --Tylenol 325 mg GA --Zofran 4 mg IB --Blood culture --Urinalysis 0259 Labs reviewed and significant for elevated lactic acid, sodium level depressed and glucose elevated. Patient treated with Azactam and Vancomycine for pseudohyponatremia. CXR shows no infiltrate. Case referred to Dr. Naik, the hospitalist. Diagnosis: pneumonia and severe sepsis Scribe Attestation: Documented by Caitie Subramanian, acting as a scribe for Minesh Wood MD. Provider Scribe Attestation: All medical record entries made by the Scribe were at my direction and per sonally dictated by me. I have reviewed the chart and agree that the record accurately reflects my personal performance of the history, physical exam, medical decision making, and the department course for this patient. Disposition - Clinical Impression Clinical Impression: Pneumonia, Sepsis - Patient ED Disposition Is Patient to be Admitted: Yes - Disposition Disposition Time: 02:59 Condition: GUARDED
[2019-01-24] MEDS ORDERED: Aztreonam 1 GM in Sodium Chloride 0.9% 100 ML IVPB STA (01:43)
[2019-01-24 02:13] LABS: BASO % 0.3 % (0.0-2.0); EOS % 0.4 % (0.0-4.0); HEMOGLOBIN 15.6 g/dL (12.0-16.0); LYMPH # 0.9 K/uL (1.0-4.3); LYMPH % 13.7 % (20.0-40.0); MEAN CELL VOLUME 80.7 fl (81.0-99.0); MEAN CORPUSCULAR HEMOGLOBIN 26.9 pg (27.0-31.0); MEAN CORPUSCULAR HGB CONC 33.4 g/dL (33.0-37.0); MONO # 0.1 K/uL (0.0-0.8); MONO % 1.8 % (0.0-10.0); NEUT # 5.6 K/uL (1.8-7.0); NEUT % 83.8 % (50.0-75.0); NRBC % 0.1 % (0.0-0.0); RBC 5.78 Mil/uL (3.80-5.20); RED CELL DISTRIBUTION WIDTH 16.9 % (11.5-14.5); WHITE BLOOD COUNT 6.7 K/uL (4.8-10.8)
[2019-01-24 02:19] LABS: ALBUMIN 3.5 g/dL (3.5-5.0); ALT/SGPT 20 U/L (9-52); AST/SGOT 23 U/L (14-36); BLOOD UREA NITROGEN 22 mg/dl (7-17); CALCIUM 9.2 mg/dL (8.4-10.2); GFR NON-AFRICAN AMERICAN > 60; LIPASE 78 U/L (23-300)
[2019-01-24] MEDS ORDERED: Vancomycin 1 g Inj ONE (02:25)
[2019-01-24 02:31] LABS: B-TYPE NATRIURETIC PEPTIDE 829 pg/ml (0-900)
[2019-01-24] MEDS ORDERED: Insulin Regular 100 units/ml IV ONE (02:33)
--- NOTE | 2019-01-24 03:07 | CP.PCM.HP ---
History of Present Illness - History of Present Illness History of Present Illness: This is 83 y/o female with pmhx of Dementia, Diabetes, Fractures, HTN, Hypercholesterolemia, Osteoporosis and chronically bedbound admitted to [facility] for evaluation and treatment of Sepsis. Patient was brought in by family for 3 days hx of progressively worsening cold, congestion, coughing with lots of clear phlegm/mucus, dyspnea, subjective fever, chills and shaking. + sick contact at home with flu like symptoms. + NBNB vomiting, on and off loose stool. Family denies any complaints of chest pain, abdominal pain or dysuria. History is limited due to dementia. Patient visited PMD few days back: exam was normal, family called PMD 1 day ago for worsening symptoms and PMD Rx Abx/not yet started. + to her basline confusion as per family, denies lethargy/drowsiness. PMD: Cheli Samson PMH: Dementia, Diabetes, Fractures, HTN, Hypercholesterolemia, Osteoporosis and bedbound PSH: Cholecystectomy Meds: as per EMR Allg: Ampicillin and Penicillins SH: Denies FH: Denies ROS: As per HPI ER Course: VS: 104.3, HR 133, 127/76, RR 20, >95% on NC CBC: No Wbcs CMP: Na 128, BUN 22, BS 390, Lactic acid 3.6 Negative flu S/p Vanco and Aztreonam S/p Tylenol/DUonebx3/insulin 6U S/p 1L IVF/Zofran 4mg Present on Admission - Present on Admission Any Indicators Present on Admission: No Review of Systems - Constitutional Constitutional: absent: Excessive Sweating, Lethargy, Night Sweats - EENT Eyes: absent: Blurred Vision Ears: absent: Dizziness Nose/Mouth/Throat: Nasal Congestion - Cardiovascular Cardiovascular: absent: Chest Pain - Respiratory Respiratory: Cough, Dyspnea. absent: Hemoptysis - Gastrointestinal Gastrointestinal: Diarrhea, Vomiting. absent: Abdominal Pain - Genitourinary Genitourinary: absent: Change in Urinary Stream, Dysuria - Integumentary Integumentary: absent: Rash - Neurological Neurological: absent: Dizziness, Sensory Deficit, Syncope, Tingling, Tremor, Vertigo - Psychiatric Psychiatric: absent: Anxiety - Hematologic/Lymphatic Hematologic: absent: Easy Bleeding Past Patient History - Infectious Disease Hx of Infectious Diseases: None - Past Medical History & Family History Past Medical History?: Yes - Past Social History Alcohol: None Drugs: Denies - CARDIAC Hx Congestive Heart Failure: Yes Hx Hypercholesterolemia: Yes Hx Hypertension: Yes - PULMONARY Hx Respiratory Disorders: No - NEUROLOGICAL Hx Dementia: Yes - HEENT Hx HEENT Problems: No - RENAL Hx Chronic Kidney Disease: No - ENDOCRINE/METABOLIC Hx Endocrine Disorders: Yes (DM) Hx Diabetes Mellitus Type 2: Yes - HEMATOLOGICAL/ONCOLOGICAL Hx Human Immunodeficiency Virus (HIV): No - INTEGUMENTARY Hx Dermatological Problems: No - MUSCULOSKELETAL/RHEUMATOLOGICAL Hx Fractures: Yes Hx Osteoporosis: Yes - GASTROINTESTINAL Hx Gastrointestinal Disorders: Yes Hx Colostomy: Yes Other/Comment: hx of bowel obstruction - GENITOURINARY/GYNECOLOGICAL Hx Genitourinary Disorders: Yes Hx Incontinence: Yes - PSYCHIATRIC Hx Psychophysiologic Disorder: No Hx Substance Use: No - SURGICAL HISTORY Hx Cholecystectomy: Yes - ANESTHESIA Hx Anesthesia: Yes Hx Anesthesia Reactions: No Hx Malignant Hyperthermia: No Meds Allergies/Adverse Reactions: Allergies Allergy/AdvReac Type Severity Reaction Status Date / Time ampicillin Allergy RASH Verified 09/15/18 14:32 Penicillins Allergy RASH Verified 09/15/18 14:32 Physical Exam - Constitutional Appears: No Acute Distress, Chronically Ill - Head Exam Head Exam: ATRAUMATIC, NORMAL INSPECTION, NORMOCEPHALIC - Eye Exam Eye Exam: EOMI, Normal appearance, PERRL Pupil Exam: NORMAL ACCOMODATION - ENT Exam ENT Exam: Mucous Membranes Moist - Neck Exam Neck exam: Positive for: Normal Inspection - Respiratory Exam Respiratory Exam: Decreased Breath Sounds (+ Crackles R side ), Wheezes, NORMAL BREATHING PATTERN. absent: Accessory Muscle Use, Respiratory Distress - Cardiovascular Exam Cardiovascular Exam: Tachycardia, REGULAR RHYTHM, +S1, +S2 - GI/Abdominal Exam GI & Abdominal Exam: Normal Bowel Sounds, Soft. absent: Tenderness - Extremities Exam Extremities exam: Negative for: tenderness Additional comments: Chronic skin changes b/l LEs - Back Exam Back exam: NORMAL INSPECTION. absent: CVA tenderness (L), CVA tenderness (R) - Neurological Exam Neurological exam: Alert Additional comments: Alert and Awake, follows simple commands to her baseline - Psychiatric Exam Psychiatric exam: Normal Affect - Skin Skin Exam: Dry, Warm Results - Vital Signs Recent Vital Signs: Last Vital Signs Temp 100.4 F H 01/24/19 03:00 Pulse 114 H 01/24/19 03:00 Resp 17 01/24/19 03:00 BP 127/76 01/24/19 01:37 Pulse Ox 97 01/24/19 03:00 - Labs Result Diagrams: 01/24/19 02:05 01/24/19 02:05 Labs: Laboratory Results - last 24 hr 01/24/19 01/24/19 01/24/19 02:05 02:05 02:05 WBC 6.7 RBC 5.78 H Hgb 15.6 D Hct 46.6 MCV 80.7 L D MCH 26.9 L MCHC 33.4 RDW 16.9 H Plt Count 435 H MPV 8.0 Neut % (Auto) 83.8 H Lymph % (Auto) 13.7 L [place] % (Auto) 1.8 Eos % (Auto) 0.4 Baso % (Auto) 0.3 Neut # (Auto) 5.6 Lymph # (Auto) 0.9 L [place] # (Auto) 0.1 Eos # (Auto) 0.0 Baso # (Auto) 0.0 Sodium 128 L Potassium 4.4 Chloride 90 L Carbon Dioxide 23 Anion Gap 19 BUN 22 H Creatinine 0.7 Est GFR ( Amer) > 60 Est GFR (Non-Af Amer) > 60 POC Glucose (mg/dL) Random Glucose 354 H Lactic Acid 3.6 H Calcium 9.2 Total Bilirubin 0.5 AST 23 ALT 20 Alkaline Phosphatase 113 Troponin I 0.0200 NT-Pro-B Natriuret Pep 829 Total Protein 7.0 Albumin 3.5 Globulin 3.5 Albumin/Globulin Ratio 1.0 Lipase 78 01/24/19 02:49 WBC RBC Hgb Hct MCV MCH MCHC RDW Plt Count MPV Neut % (Auto) Lymph % (Auto) [place] % (Auto) Eos % (Auto) Baso % (Auto) Neut # (Auto) Lymph # (Auto) [place] # (Auto) Eos # (Auto) Baso # (Auto) Sodium Potassium Chloride Carbon Dioxide Anion Gap BUN Creatinine Est GFR ( Amer) Est GFR (Non-Af Amer) POC Glucose (mg/dL) 390 H Random Glucose Lactic Acid Calcium Total Bilirubin AST ALT Alkaline Phosphatase Troponin I NT-Pro-B Natriuret Pep Total Protein Albumin Globulin Albumin/Globulin Ratio Lipase Assessment & Plan - Assessment and Plan (Free Text) Assessment: A/P; 83 y/o female with pmhx of Dementia, Diabetes, Fractures, HTN, Hypercholesterolemia, Osteoporosis and chronically bedbound admitted to [facility] for evaluation and treatment of Sepsis. Severe Sepsis, criterias met by fever, tachycardia, elevated lactate and possible mild infiltrate on CXR/Pending UA - S/p S/p Vanco and Aztreonam - CXR: f/u official read - C/w Tylenol for fever - C/w IVF as ordered - START Vanco Q12 H, day1 - START Aztreonam Q12H, Day1 - Follow up Lactic acid and labs in 6 hours - F/u UA and Ucx DM-II, Chronic, uncontrolled - C/w home medications as ordered - Sliding scale and Hypoglycemic protocol - AccuChecks Q8H Wheezing, Decreased breath sounds b/l - Duoneb Q6H JAMAR for 3 doses then PRN Q6H - F/u Official CXR Mild Hyponatremia - Close monitoring - C/w fluids Hypertension, Chronic, controlled - C/w Medications/home as ordered DVT PPX - Lovenox 40mg SC daily Case discussed and Patient seen with Dr. Naik
[2019-01-24] MEDS ORDERED: Glucagon Recombinant 1 mg Inj IM PRN (03:12)
[2019-01-24] MEDS ORDERED: Insulin Lispro (humaLOG) 100 Units/ml Inj SC SCH (03:15)
[2019-01-24] MEDS ORDERED: Albuterol-Ipratrop 3 mg / 0.5 (3 ml) UD INH PRN (03:20)
[2019-01-24] MEDS ORDERED: Magnesium Hydroxide Susp 30 ml UD PO PRN (03:29)
[2019-01-24 04:13] LABS: SQUAMOUS EPITHIAL 2 /hpf (0-5); URINE BILIRUBIN NEGATIVE (NEGATIVE); URINE BLOOD NEGATIVE (NEGATIVE); URINE CLARITY CLOUDY (Clear); URINE COLOR YELLOW (YELLOW); URINE GLUCOSE (UA) >=500 mg/dL (NEGATIVE); URINE LEUKOCYTE ESTERASE NEG Leu/uL (Negative); URINE PROTEIN NEGATIVE (NEGATIVE); URINE UROBILINOGEN 0.2-1.0 mg/dL (0.2-1.0)
[2019-01-24] MEDS: Sodium Chloride 0.9% 1,000 ML IV SCH ×2 (04:25→16:11)
[2019-01-24 04:32] VITALS: BMI 21.6
[2019-01-24] MEDS ORDERED: Lactated Ringer's 1,000 ML IV SCH (07:15)
[2019-01-24] MEDS: Albuterol-Ipratrop 3 mg / 0.5 (3 ml) UD INH SCH ×4 (07:27→19:04)
--- NOTE | 2019-01-24 07:54 | RAD ---
Date of service: 01/24/2019 HISTORY: chest pain COMPARISON: Portable chest 09/25/2018. TECHNIQUE: 1 view obtained. FINDINGS: LUNGS: No acute infiltrate bilaterally. Trace linear atelectasis left base. PLEURA: No significant pleural effusion identified, no pneumothorax apparent. CARDIOVASCULAR: Calcific atherosclerotic changes are seen related to the thoracic aorta. Normal cardiac size. No pulmonary vascular congestion. OSSEOUS STRUCTURES: No significant abnormalities. VISUALIZED UPPER ABDOMEN: Normal. OTHER FINDINGS: None. IMPRESSION: Trace linear atelectasis left base. No acute infiltrate or pleural effusion or pulmonary vascular congestion.
[2019-01-24] MEDS: Cholecalciferol 1,000 INTLU TAB PO SCH ×3 (09:00→12:12)
[2019-01-24] MEDS: Aztreonam 1 GM in Sodium Chloride 0.9% 100 ML IVPB SCH ×2 (09:03→21:43)
[2019-01-24 09:25] LABS: BASO % 0.2 % (0.0-2.0); EOS % 0.1 % (0.0-4.0); HEMOGLOBIN 13.6 g/dL (12.0-16.0); LYMPH # 0.9 K/uL (1.0-4.3); LYMPH % 7.8 % (20.0-40.0); MEAN CELL VOLUME 82.1 fl (81.0-99.0); MEAN CORPUSCULAR HEMOGLOBIN 26.1 pg (27.0-31.0); MEAN CORPUSCULAR HGB CONC 31.7 g/dL (33.0-37.0); MEAN PLATELET VOLUME 8.3 fl (7.2-11.7); MONO # 0.4 K/uL (0.0-0.8); MONO % 3.7 % (0.0-10.0); NEUT # 9.8 K/uL (1.8-7.0); NEUT % 88.2 % (50.0-75.0); PLATELET COUNT 365 K/uL (130-400); RBC 5.22 Mil/uL (3.80-5.20); RED CELL DISTRIBUTION WIDTH 17.6 % (11.5-14.5); WHITE BLOOD COUNT 11.1 K/uL (4.8-10.8)
[2019-01-24 09:37] LABS: BLOOD UREA NITROGEN 26 mg/dl (7-17); GFR NON-AFRICAN AMERICAN > 60
[2019-01-24 09:39] LABS: ALT/SGPT 18 U/L (9-52); AST/SGOT 18 U/L (14-36); CALCIUM 8.2 mg/dL (8.4-10.2)
[2019-01-24] MEDS: Enoxaparin 40 mg Syringe SC SCH (09:48)
[2019-01-24] MEDS: Insulin Lispro (humaLOG) 100 Units/ml Inj SC SCH ×4 (09:51→21:44)
[2019-01-24 15:48] LABS: BANDS 16 % (0-2); LYMPHOCYTE 7 % (20-50); MONOCYTE 4 % (0-10); NEUTROPHIL 70 % (42-75); REACTIVE LYMPHOCYTES 3 % (0-0); TOTAL CELLS COUNTED 100
[2019-01-24 15:49] LABS: ANISOCYTOSIS SLIGHT; PLATELET ESTIMATE NORMAL (NORMAL)
[2019-01-24] MEDS: Proshield Plus GEL TOP PRN (15:49)
[2019-01-24] MEDS ORDERED: Insulin Detemir 100 Units/ml Inj SC SCH (22:00)
[2019-01-25] MEDS: Sodium Chloride 0.9% 1,000 ML IV SCH ×2 (03:32→20:24)
[2019-01-25] MEDS: Dextrose 50% SYRINGE Inj (50 ml) IV PRN (05:44)
[2019-01-25 06:16] LABS: BASO % 0.1 % (0.0-2.0); EOS % 0.1 % (0.0-4.0); LYMPH # 1.7 K/uL (1.0-4.3); LYMPH % 13.3 % (20.0-40.0); MEAN CELL VOLUME 81.2 fl (81.0-99.0); MEAN CORPUSCULAR HEMOGLOBIN 26.5 pg (27.0-31.0); MEAN CORPUSCULAR HGB CONC 32.7 g/dL (33.0-37.0); MEAN PLATELET VOLUME 8.2 fl (7.2-11.7); MONO # 0.5 K/uL (0.0-0.8); MONO % 4.3 % (0.0-10.0); NEUT # 10.2 K/uL (1.8-7.0); NEUT % 82.2 % (50.0-75.0); NRBC % 0.1 % (0.0-0.0); RBC 4.57 Mil/uL (3.80-5.20); RED CELL DISTRIBUTION WIDTH 17.2 % (11.5-14.5); WHITE BLOOD COUNT 12.5 K/uL (4.8-10.8)
[2019-01-25 06:33] LABS: HEMOGLOBIN 12.1 g/dL (12.0-16.0)
[2019-01-25 06:43] LABS: BLOOD UREA NITROGEN 32 mg/dl (7-17); CALCIUM 8.5 mg/dL (8.4-10.2); GFR NON-AFRICAN AMERICAN > 60
[2019-01-25] MEDS: Insulin Lispro (humaLOG) 100 Units/ml Inj SC SCH ×4 (07:25→22:10)
[2019-01-25] MEDS ORDERED: Sodium Chloride 3% for Inhalation 4 ML VIAL.NEB IH PRN (07:39)
--- NOTE | 2019-01-25 07:44 | CP.PCM.PN ---
Subjective - Date & Time of Evaluation Date of Evaluation: 01/25/19 Time of Evaluation: 09:49 - Subjective Subjective: Patient was seen and examined this morning. Patient breathing comfortably with 2 L of oxygen via NC with saturations in 92-96. Patient has no complaints. NO f/c/n/v/abdominal pain, cp or sob. Objective - Vital Signs/Intake and Output Vital Signs (last 24 hours): Temp Pulse Resp BP Pulse Ox 97.6 F 97 H 18 111/61 95 01/25/19 05:03 01/25/19 05:03 01/25/19 05:03 01/25/19 05:03 01/25/19 05:03 - Medications Medications: Current Medications Acetaminophen (Tylenol 325mg Tab) 650 mg PO Q6 PRN PRN Reason: Pain, moderate (4-7) Acetaminophen (Tylenol 325mg Tab) 650 mg PO Q6 PRN PRN Reason: Fever >100.4 F Albuterol/Ipratropium (Duoneb 3 Mg/0.5 Mg (3 Ml) Ud) 3 ml INH RQ4 PRN PRN Reason: Shortness of Breath Aspirin (Ecotrin) 81 mg PO DAILY JAMAR Last Admin: 01/24/19 12:07 Dose: 81 mg Cholecalciferol (Vitamin D) 1,000 intlu PO DAILY JAMAR Last Admin: 01/24/19 12:12 Dose: 1,000 intlu Dextrose (Dextrose 50% Inj) 0 ml IV STAT PRN; Protocol PRN Reason: Hypoglycemia Protocol Last Admin: 01/25/19 05:44 Dose: 50 ml Dextrose (Glutose 15) 0 gm PO ONCE PRN; Protocol PRN Reason: Hypoglycemia Protocol Dimethicone (Proshield Plus Skin Protectant) 1 applic TOP Q8 PRN PRN Reason: incontinence Last Admin: 01/24/19 15:49 Dose: 1 applic Enoxaparin Sodium (Lovenox) 40 mg SC DAILY [facility]; Protocol Last Admin: 01/24/19 09:48 Dose: 40 mg Ferrous Sulfate (Feosol) 325 mg PO MWF [facility] Glucagon (Glucagen Diagnostic Kit) 0 mg IM STAT PRN; Protocol PRN Reason: Hypoglycemia Protocol Aztreonam 1 gm/ Sodium (Chloride) 100 mls @ 100 mls/hr IVPB Q12 [facility]; Protocol Last Admin: 01/24/19 21:43 Dose: 100 mls/hr Vancomycin HCl 1 gm/ Sodium (Chloride) 250 mls @ 166.667 mls/hr IVPB Q12 [facility]; Protocol Last Admin: 01/24/19 16:45 Dose: 166.667 mls/hr Insulin Detemir (Levemir) 10 units SC HS [facility] Insulin Human Lispro (Humalog) 0 units SC ACHS [facility]; Protocol Last Admin: 01/25/19 07:25 Dose: Not Given Isosorbide Mononitrate (Imdur Er) 30 mg PO DAILY [facility] Last Admin: 01/24/19 09:02 Dose: Not Given Ketorolac Tromethamine (Toradol) 30 mg IVP Q6 PRN PRN Reason: Pain, severe (8-10) Magnesium Hydroxide (Milk Of Magnesia) 30 ml PO DAILY PRN PRN Reason: Constipation Ondansetron HCl (Zofran Inj) 4 mg IVP Q6 PRN PRN Reason: Nausea/Vomiting Sitagliptin Phosphate (Januvia) 100 mg PO DAILY [facility] Last Admin: 01/24/19 12:11 Dose: 100 mg - Labs Labs: 01/25/19 04:40 01/25/19 04:40 - Constitutional Appears: Non-toxic - Head Exam Head Exam: ATRAUMATIC - Eye Exam Eye Exam: EOMI - ENT Exam ENT Exam: Mucous Membranes Moist - Respiratory Exam Additional comments: crackles in right lower lobe - Cardiovascular Exam Cardiovascular Exam: REGULAR RHYTHM, +S1, +S2 - GI/Abdominal Exam GI & Abdominal Exam: Soft, Normal Bowel Sounds. absent: Guarding, Rigid, Tenderness - Extremities Exam Additional comments: b/l lower leg atrophy, calves nontender - Neurological Exam Neurological Exam: Alert, Awake - Psychiatric Exam Psychiatric exam: Normal Mood - Skin Skin Exam: Dry Assessment and Plan - Assessment and Plan (Free Text) Assessment: 83 y/o femlae with PMH Dementia, bedbound , DM , HTN brought by family for evaluation of respiratory symptoms which included congestion, cough, sputum production & subjective fever. 1. Sepsis secondary (criteria met on admission) to multifocal pneumonia -Blood cultures showed no growth -C/w vanco & aztreonam (day 2) 2. CAP -FU legionella & mycoplasma antigen -C/w IV antibiotics -FU sputum cultures 3. Hyponatremia ( likely secondary to volume depletion) NA- initially 128; 134 today -FU repeat levels in AM -C/w IV fluids 4. Uncontrolled DM -C/w IVF -C/w diabetic diet -Initial sugars- 390 -Accucheck, insulin coverage, levemir & januvia -Levemir decreased to 10 units bc of episode of hypoglycemia last night 5. Hypoglycemia (acute) -Levemir decreased to 10 units bc of episode of hypoglycemia last night -Glucose: 33; level increased after dextrose wwas given 6. Azotemia -C/w IV fluids 7. HTN -hold bc BP 98-99 systolic 8. Dementia 9. Bedbound with muscle atrophy
[2019-01-25] MEDS: Aztreonam 1 GM in Sodium Chloride 0.9% 100 ML IVPB SCH ×2 (08:07→21:36)
[2019-01-25] MEDS: Enoxaparin 40 mg Syringe SC SCH (08:17)
[2019-01-25] MEDS: Cholecalciferol 1,000 INTLU TAB PO SCH (08:18)
--- NOTE | 2019-01-25 15:07 | RAD ---
Date of service: 01/25/2019 HISTORY: abd pain COMPARISON: None available. TECHNIQUE: 1 view obtained. FINDINGS: BOWEL: Moderate stool retention. No bowel obstruction appreciated. BONES: Generalized osteopenia. Thoraco lumbar mild spondylosis. Bilateral hip arthrosis. OTHER FINDINGS: Relative increased opacity at the right lung base-appears to be folded up here as well-some right inferolateral lung base consolidation of unknown chronicity is a consideration. IMPRESSION: Moderate stool retention. No bowel obstruction appreciated. Other findings as above. Consider chest x-ray to assess lateral right lung base which is incompletely appreciated on this exam.
[2019-01-25] MEDS: Proshield Plus GEL TOP PRN (17:27)
--- NOTE | 2019-01-25 17:41 | PQF ---
PROVIDER RESPONSE TEXT: Multifocal pneumonia on cxr REVIEWER QUERY TEXT: Pneumonia Specificity Pneumonia is documented in the Medical Record. Please specify the type of pneumonia and the causative organism (includes probable or suspected) if known after the work up is completed: i.e. -- Aspiration pneumonia (please also specify the aspirate) - Please indicate if the aspiration is postprocedure -- Bacterial (please document suspected or probable organism if known) -- Bronchopneumonia (please document suspected or probable organism) -- Interstitial pneumonia -- Organizing pneumonia / BOOP -- Viral -- Other, please specify WBC: 6.7->11.1 (with Band:16)->12.5 01/24 CXR; Trace linear atelectasis left base.No acute infiltrate or pleural effusion or pulmonary vasc ular congestion. H and P includes: 83 y/o female with pmhx of Dementia, Diabetes, chronically bedbound admitted to [facility] for evaluation and treatment of Sepsis:3 days hx of progressively worsening cold, congestion, coug k[place] with lots of clear phlegm/mucus, dyspnea, subjective fever, chills and shaking.+ sick contact at home with flu like symptoms.+ NBNB vomiting, on and off. Dx. Includes;1. Sepsis secondary to multifocal Pneumonia Follow up blood cx. Continue Vanco andAztreo nam Duoneb PRn O2 via NC 2.CAP Send Legionella AG, Mycoplasm,a Ag Continue Vanco and Aztreonam The patient's Clinical Indicators include: -- Query created by: Chloe Damon on 01/25/2019 8:42 AM Electronically signed by: Heike Arevalo 01/25/2019 5:38 PM
--- NOTE | 2019-01-25 17:41 | PQF ---
PROVIDER RESPONSE TEXT: REVIEWER QUERY TEXT: Diabetic Associated Manifestations Please specify any manifestations associated / due to diabetes Such as: --Diabetes with Hyperglycemia or Hypoglycemia -- Diabetes with renal manifestation -- Diabetes with neurologic manifestation -- Diabetes with ophthalmic manifestation -- Diabetes with peripheral circulatory manifestation -- Other, please specify Serum glucose: 354->151->37 POC:390->141->222->162->81->33->189 H and P: includes: DM-II, Chronic, uncontrolled C/w home medications as ordered - Sliding scale and H ypoglycemic protocol - AccuChecks Q8H The patient's Clinical Indicators include: -- Query created by: Chloe Damon on 01/25/2019 9:04 AM Electronically signed by: Heike Arevalo 01/25/2019 5:38 PM
[2019-01-25] MEDS ORDERED: Insulin Detemir 100 Units/ml Inj SC SCH (22:00)
[2019-01-26] MEDS: Dextrose 50% SYRINGE Inj (50 ml) IV PRN (05:37)
[2019-01-26 05:54] LABS: BASO % 0.2 % (0.0-2.0); EOS # 0.1 K/uL (0.0-0.7); EOS % 0.8 % (0.0-4.0); LYMPH # 0.7 K/uL (1.0-4.3); LYMPH % 6.2 % (20.0-40.0); MEAN CELL VOLUME 81.8 fl (81.0-99.0); MEAN CORPUSCULAR HGB CONC 31.8 g/dL (33.0-37.0); MEAN PLATELET VOLUME 8.4 fl (7.2-11.7); MONO # 0.4 K/uL (0.0-0.8); MONO % 3.7 % (0.0-10.0); NEUT # 10.4 K/uL (1.8-7.0); NEUT % 89.1 % (50.0-75.0); NRBC % 0.1 % (0.0-0.0); RBC 4.13 Mil/uL (3.80-5.20); RED CELL DISTRIBUTION WIDTH 17.2 % (11.5-14.5); WHITE BLOOD COUNT 11.6 K/uL (4.8-10.8)
[2019-01-26 06:20] LABS: BLOOD UREA NITROGEN 25 mg/dl (7-17); CALCIUM 7.8 mg/dL (8.4-10.2); GFR NON-AFRICAN AMERICAN > 60
[2019-01-26 06:35] LABS: HEMOGLOBIN 10.8 g/dL (12.0-16.0)
[2019-01-26] MEDS ORDERED: Magnesium Sulfate 2 gm/50 ml 2 GM/50 ML BAG IVPB ONE (06:52)
[2019-01-26] MEDS ORDERED: Potassium Chloride 20 mEq/15 ml LIQ UD PO ONE (06:52)
[2019-01-26] MEDS ORDERED: Potassium Chl 20 mEq in D5-NS 1,000 ML IV SCH (07:00)
[2019-01-26] MEDS: Insulin Lispro (humaLOG) 100 Units/ml Inj SC SCH ×4 (08:06→21:13)
[2019-01-26] MEDS: Aztreonam 1 GM in Sodium Chloride 0.9% 100 ML IVPB SCH ×2 (08:24→21:11)
[2019-01-26] MEDS: Cholecalciferol 1,000 INTLU TAB PO SCH (08:31)
[2019-01-26] MEDS: Enoxaparin 40 mg Syringe SC SCH (08:32)
--- NOTE | 2019-01-26 15:42 | PQF ---
PROVIDER RESPONSE TEXT: Echo done 08/2018 shows EF of 60-65% with grade 1 abnormal relaxation; no chf REVIEWER QUERY TEXT: CHF Acuity and Type PMH :Congestive Heart Failure is documented in the H and P. Please document the type and acuity (incl udes probable or suspected) versus No CHF versus History only and not a currently treated condition Such as: Type: -- Systolic -- Diastolic -- Combined -- Other, please specify Acuity: -- Acute -- Chronic -- Acute on chronic -- Other, please specify 01/24 CXR: Impression: Trace linear atelectasis left base.No acute infiltrate or pleural effusion or pu lmonary vascular congestion. ProBNP: 829 ER: PE: Negative for: Pedal Edema H and P: includes: Respiratory: Exam: Decreased Breath Sounds (+ Crackles R side ), Wheezes, NORMAL B REATHING PATTERN. -Lasix 10 mg PO daily The patient's Clinical Indicators include: -- Query created by: Chloe Damon on 01/25/2019 8:54 AM Electronically signed by: Heike Arevalo 01/26/2019 3:39 PM
--- NOTE | 2019-01-26 15:43 | CP.PCM.PN ---
Subjective - Date & Time of Evaluation Date of Evaluation: 01/26/19 Time of Evaluation: 09:46 - Subjective Subjective: Patient was seen at bedside. Patient has a dementia, but did not complain of f/c/n/v/diarrhea, cp or sob. Objective - Vital Signs/Intake and Output Vital Signs (last 24 hours): Temp Pulse Resp BP Pulse Ox 97.8 F 81 18 111/76 100 01/26/19 11:44 01/26/19 11:44 01/26/19 11:44 01/26/19 11:44 01/26/19 11:44 - Medications Medications: Current Medications Acetaminophen (Tylenol 325mg Tab) 650 mg PO Q6 PRN PRN Reason: Pain, moderate (4-7) Acetaminophen (Tylenol 325mg Tab) 650 mg PO Q6 PRN PRN Reason: Fever >100.4 F Albuterol/Ipratropium (Duoneb 3 Mg/0.5 Mg (3 Ml) Ud) 3 ml INH RQ4 PRN PRN Reason: Shortness of Breath Aspirin (Ecotrin) 81 mg PO DAILY JAMAR Last Admin: 01/26/19 08:34 Dose: 81 mg Cholecalciferol (Vitamin D) 1,000 intlu PO DAILY JAMAR Last Admin: 01/26/19 08:31 Dose: 1,000 intlu Dextrose (Dextrose 50% Inj) 0 ml IV STAT PRN; Protocol PRN Reason: Hypoglycemia Protocol Last Admin: 01/26/19 05:37 Dose: 50 ml Dextrose (Glutose 15) 0 gm PO ONCE PRN; Protocol PRN Reason: Hypoglycemia Protocol Dimethicone (Proshield Plus Skin Protectant) 1 applic TOP Q8 PRN PRN Reason: incontinence Last Admin: 01/25/19 17:27 Dose: 1 applic Docusate Sodium (Colace) 200 mg PO DAILY JAMAR Last Admin: 01/26/19 08:51 Dose: 200 mg Enoxaparin Sodium (Lovenox) 40 mg SC DAILY [facility]; Protocol Last Admin: 01/26/19 08:32 Dose: 40 mg Glucagon (Glucagen Diagnostic Kit) 0 mg IM STAT PRN; Protocol PRN Reason: Hypoglycemia Protocol Aztreonam 1 gm/ Sodium (Chloride) 100 mls @ 100 mls/hr IVPB Q12 [facility]; Protocol Last Admin: 01/26/19 08:24 Dose: 100 mls/hr Vancomycin HCl 1 gm/ Sodium (Chloride) 250 mls @ 166.667 mls/hr IVPB Q12 [facility]; Protocol Last Admin: 01/26/19 08:25 Dose: 166.667 mls/hr Potassium Chloride/Dextrose/Sod Cl (Potassium Chl 20 Meq In D5-Ns) 1,000 mls @ 80 mls/hr IV .[id number] [facility] Stop: 01/27/19 06:51 Last Admin: 01/26/19 08:23 Dose: 80 mls/hr Insulin Detemir (Levemir) 10 units SC [facility] Insulin Human Lispro (Humalog) 0 units SC ACHS [facility]; Protocol Last Admin: 01/26/19 12:05 Dose: 2 units Isosorbide Mononitrate (Imdur Er) 30 mg PO DAILY [facility] Last Admin: 01/26/19 08:35 Dose: 30 mg Ketorolac Tromethamine (Toradol) 30 mg IVP Q6 PRN PRN Reason: Pain, severe (8-10) Lactulose (Enulose) 20 gm PO DAILY PRN PRN Reason: Constipation Magnesium Hydroxide (Milk Of Magnesia) 30 ml PO DAILY PRN PRN Reason: Constipation Ondansetron HCl (Zofran Inj) 4 mg IVP Q6 PRN PRN Reason: Nausea/Vomiting Sitagliptin Phosphate (Januvia) 100 mg PO DAILY [facility] Last Admin: 01/25/19 08:17 Dose: 100 mg - Labs Labs: 01/26/19 04:30 01/26/19 04:30 - Constitutional Appears: Non-toxic - Head Exam Head Exam: ATRAUMATIC - ENT Exam ENT Exam: Mucous Membranes Moist - Respiratory Exam Additional comments: crackles in right lower bases - Cardiovascular Exam Cardiovascular Exam: REGULAR RHYTHM, +S1, +S2 - GI/Abdominal Exam GI & Abdominal Exam: Soft. absent: Guarding, Rigid, Tenderness - Extremities Exam Additional comments: b/l lower extremity atrophy - Neurological Exam Neurological Exam: Alert, Awake - Psychiatric Exam Psychiatric exam: Normal Mood - Skin Skin Exam: Dry Assessment and Plan - Assessment and Plan (Free Text) Assessment: 83 y/o female with PMH Dementia, bedbound , DM , HTN brought by family for evaluation of respiratory symptoms which included congestion, cough, sputum production & subjective fever. 1. Sepsis secondary (criteria met on admission) to multifocal pneumonia -Blood cultures showed no growth -C/w vanco & aztreonam (day 3) 2. CAP -FU legionella; mycoplasma antigen neg -C/w IV antibiotics -FU sputum cultures; gram stain: many gram positive cocci; rare polymorphonuclea r wbcs; rare epithelial cells 3. Hyponatremia ( likely secondary to volume depletion) NA- initially 128; 136 -FU repeat levels in AM -C/w IV fluid 4. Uncontrolled DM -C/w IVF -C/w diabetic diet -Initial sugars- 390; recent 204 -Accucheck, insulin coverage, levemir & januvia -Levemir decreased to 10 units bc of episode of hypoglycemia last night 5. Hypoglycemia (acute) -hold diabetic meds -Glucose: 34 last night; 33 previous night; level increased after dextrose was given -Switched fluids to D5, with NS & 20meQof KCL 6. Azotemia (likely due to dehydration -C/w IV fluids 7. HTN -hold bc BP 98-99 systolic 8. Hypokalemia (acute) -3 today; initially 4.4 C/w K replacement in IV fluids 9. Dementia 10. Bedbound with muscle atrophy 11. Constipation with abdominal tenderness C/wl lactulose 20gm PO QD PRN
[2019-01-26] MEDS: Sodium Chloride 0.9% 1,000 ML IV SCH (15:54)
[2019-01-27 05:44] LABS: BASO % 0.2 % (0.0-2.0); EOS # 0.3 K/uL (0.0-0.7); EOS % 3.1 % (0.0-4.0); LYMPH # 0.8 K/uL (1.0-4.3); LYMPH % 8.4 % (20.0-40.0); MEAN CELL VOLUME 81.7 fl (81.0-99.0); MEAN CORPUSCULAR HEMOGLOBIN 26.6 pg (27.0-31.0); MEAN CORPUSCULAR HGB CONC 32.6 g/dL (33.0-37.0); MEAN PLATELET VOLUME 8.5 fl (7.2-11.7); MONO # 0.4 K/uL (0.0-0.8); NEUT # 8.1 K/uL (1.8-7.0); NEUT % 84.3 % (50.0-75.0); RBC 3.72 Mil/uL (3.80-5.20); RED CELL DISTRIBUTION WIDTH 17.6 % (11.5-14.5); WHITE BLOOD COUNT 9.6 K/uL (4.8-10.8)
[2019-01-27 06:24] LABS: BLOOD UREA NITROGEN 15 mg/dl (7-17); CALCIUM 7.8 mg/dL (8.4-10.2); GFR NON-AFRICAN AMERICAN > 60
[2019-01-27 06:26] LABS: HEMOGLOBIN 9.9 g/dL (12.0-16.0)
[2019-01-27] MEDS: Aztreonam 1 GM in Sodium Chloride 0.9% 100 ML IVPB SCH ×2 (08:29→21:26)
[2019-01-27] MEDS: Enoxaparin 40 mg Syringe SC SCH (08:34)
[2019-01-27] MEDS: Proshield Plus GEL TOP PRN ×2 (08:35→21:00)
[2019-01-27] MEDS: Megestrol Acetate 40 mg/ml Cup PO SCH (08:35)
[2019-01-27] MEDS: Cholecalciferol 1,000 INTLU TAB PO SCH (08:36)
[2019-01-27] MEDS: Insulin Detemir 100 Units/ml Inj SC SCH (08:37)
[2019-01-27] MEDS: Insulin Lispro (humaLOG) 100 Units/ml Inj SC SCH ×4 (08:39→21:28)
--- NOTE | 2019-01-27 10:32 | CP.PCM.DIS ---
<Heike Arevalo - Last Filed: 01/27/19 13:52> Provider - Provider Date of Admission: 01/24/19 01:44 Attending physician: Po Naik MD Primary care physician: Cheli Samson MD Consults: 01/24/19 05:26 Nursing Referral for Wound Care Routine Comment: Physician Instructions: Reason For Exam: Redness on B/L arms and legs Time Spent in preparation of Discharge (in minutes): 30 Hospital Course - Lab Results Lab Results: Micro Results 01/24/19 02:05 Blood-Venous Blood Culture - Preliminary NO GROWTH AFTER 3 DAYS 01/24/19 01:55 Blood-Venous Blood Culture - Preliminary NO GROWTH AFTER 3 DAYS 01/25/19 13:14 Sputum Gram Stain - Final 01/24/19 03:50 Urine,Clean Catch Urine Culture - Final No Growth (<1,000 CFU/ML) Most Recent Lab Values WBC 9.6 K/uL (4.8-10.8) 01/27/19 04:35 RBC 3.72 Mil/uL (3.80-5.20) L 01/27/19 04:35 Hgb 9.9 g/dL (12.0-16.0) L 01/27/19 04:35 Hct 30.4 % (34.0-47.0) L 01/27/19 04:35 MCV 81.7 fl (81.0-99.0) 01/27/19 04:35 MCH 26.6 pg (27.0-31.0) L 01/27/19 04:35 MCHC 32.6 g/dL (33.0-37.0) L 01/27/19 04:35 RDW 17.6 % (11.5-14.5) H 01/27/19 04:35 Plt Count 304 K/uL (130-400) 01/27/19 04:35 MPV 8.5 fl (7.2-11.7) 01/27/19 04:35 Neut % (Auto) 84.3 % (50.0-75.0) H 01/27/19 04:35 Lymph % (Auto) 8.4 % (20.0-40.0) L 01/27/19 04:35 [place] % (Auto) 4.0 % (0.0-10.0) 01/27/19 04:35 Eos % (Auto) 3.1 % (0.0-4.0) 01/27/19 04:35 Baso % (Auto) 0.2 % (0.0-2.0) 01/27/19 04:35 Neut # (Auto) 8.1 K/uL (1.8-7.0) H 01/27/19 04:35 Lymph # (Auto) 0.8 K/uL (1.0-4.3) L 01/27/19 04:35 [place] # (Auto) 0.4 K/uL (0.0-0.8) 01/27/19 04:35 Eos # (Auto) 0.3 K/uL (0.0-0.7) 01/27/19 04:35 Baso # (Auto) 0.0 K/uL (0.0-0.2) 01/27/19 04:35 Neutrophils % (Manual) 70 % (42-75) 01/24/19 08:30 Band Neutrophils % 16 % (0-2) H* 01/24/19 08:30 Lymphocytes % (Manual) 7 % (20-50) L 01/24/19 08:30 Reactive Lymphs % 3 % (0-0) H 01/24/19 08:30 Monocytes % (Manual) 4 % (0-10) 01/24/19 08:30 Platelet Estimate Normal (NORMAL) 01/24/19 08:30 Anisocytosis (manual) Slight 01/24/19 08:30 Sodium 137 mmol/l (132-148) 01/27/19 04:35 Potassium 4.0 MMOL/L (3.6-5.0) 01/27/19 04:35 Chloride 107 mmol/L (98-107) 01/27/19 04:35 Carbon Dioxide 25 mmol/L (22-30) 01/27/19 04:35 Anion Gap 9 (10-20) L 01/27/19 04:35 BUN 15 mg/dl (7-17) 01/27/19 04:35 Creatinine 0.6 mg/dl (0.7-1.2) L 01/27/19 04:35 Est GFR ( Amer) > 60 01/27/19 04:35 Est GFR (Non-Af Amer) > 60 01/27/19 04:35 POC Glucose (mg/dL) 272 mg/dL (65-110) H 01/27/19 05:22 Random Glucose 246 mg/dL (65-105) H 01/27/19 04:35 Lactic Acid 3.5 mmol/L (0.7-2.1) H 01/24/19 05:40 Calcium 7.8 mg/dL (8.4-10.2) L 01/27/19 04:35 Phosphorus 3.9 mg/dl (2.5-4.5) 01/24/19 08:30 Magnesium 1.4 MG/DL (1.6-2.3) L 01/24/19 08:30 Total Bilirubin 0.4 mg/dl (0.2-1.3) 01/24/19 08:45 AST 18 U/L (14-36) 01/24/19 08:45 ALT 18 U/L (9-52) 01/24/19 08:45 Alkaline Phosphatase 80 U/L (38-126) 01/24/19 08:45 Troponin I 0.0200 ng/mL (0.00-0.120) 01/24/19 02:05 NT-Pro-B Natriuret Pep 829 pg/ml (0-900) 01/24/19 02:05 Total Protein 6.1 G/DL (6.3-8.2) L 01/24/19 08:45 Albumin 3.0 g/dL (3.5-5.0) L 01/24/19 08:45 Globulin 3.1 gm/dL (2.2-3.9) 01/24/19 08:45 Albumin/Globulin Ratio 1.0 (1.0-2.1) 01/24/19 08:45 Lipase 78 U/L (23-300) 01/24/19 02:05 Procalcitonin 49.24 NG/ML (0.19-0.49) H 01/24/19 08:30 Urine Color Yellow (YELLOW) 01/24/19 03:50 Urine Clarity Cloudy (Clear) 01/24/19 03:50 Urine pH 5.0 (5.0-8.0) 01/24/19 03:50 Ur Specific [place] 1.015 (1.003-1.030) 01/24/19 03:50 Urine Protein Negative mg/dL (NEGATIVE) 01/24/19 03:50 Urine Glucose (UA) >=500 mg/dL (NEGATIVE) 01/24/19 03:50 Urine Ketones Negative mg/dL (NEGATIVE) 01/24/19 03:50 Urine Blood Negative (NEGATIVE) 01/24/19 03:50 Urine Nitrate Negative (NEGATIVE) 01/24/19 03:50 Urine Bilirubin Negative (NEGATIVE) 01/24/19 03:50 Urine Urobilinogen 0.2-1.0 mg/dL (0.2-1.0) 01/24/19 03:50 Ur Leukocyte Esterase Neg Jethro/uL (Negative) 01/24/19 03:50 Urine Microscopic WBC 1 /hpf (0-5) 01/24/19 03:50 Ur Squamous Epith Cells 2 /hpf (0-5) 01/24/19 03:50 Influenza Typ A,B (EIA) Negative for flu a/b (NEGATIVE) 01/24/19 02:50 Mycoplasma pneumon IgM Negative (NEGATIVE) 01/25/19 06:30 - Hospital Course Hospital Course: 83 y/o female with PMH Dementia, bedbound , DM , HTN brought by family for evaluation of respiratory symptoms which included congestion, cough, sputum production & subjective fever. Patient seen and examined this morning. Patient sitting upright in bed. Denies any f/c/abdominal pain, n or v. Will be discharged to TCU for continuation of IV antibiotics for 1 more week. 1. Sepsis secondary (criteria met on admission) to multifocal pneumonia -Blood cultures showed no growth -C/w vanco & aztreonam (day 4) 2. CAP -FU legionella; mycoplasma antigen neg -C/w IV antibiotics -FU sputum cultures; gram stain: many gram positive cocci; rare polymorphonuclear wbcs; rare epithelial cells 3. Hyponatremia ( likely secondary to volume depletion) NA- initially 128; 137 today -C/w IV fluid 4. Uncontrolled DM -C/w IVF -C/w diabetic diet -Initial sugars- 390; recent 204 -Accucheck, insulin coverage, - januvia & metformin on hold -Levemir decreased to 5 units this morning 5. Hypoglycemia (acute) -hold diabetic meds -Glucose: 34 last night; 33 previous night; level increased after dextrose was given -Switched fluids to D5, with NS & 20meQof KCL 6. Azotemia (likely due to dehydration -C/w IV fluids 7. HTN -hold bc BP 98-99 systolic 8. Hypokalemia (acute) -4 today; initially 4.4 9. Dementia 10. Bedbound with muscle atrophy 11. Constipation with abdominal tenderness C/wl lactulose 20gm PO QD PRN Discharge Exam - Head Exam Head Exam: ATRAUMATIC - Eye Exam Eye Exam: EOMI - ENT Exam ENT Exam: Mucous Membranes Dry - Respiratory Exam Additional comments: crackles in right lower bases - Cardiovascular Exam Cardiovascular Exam: REGULAR RHYTHM, +S1, +S2 - GI/Abdominal Exam GI & Abdominal Exam: Normal Bowel Sounds, Soft. absent: Tenderness - Extremities Exam Additional comments: b/l lower extremity atrophy Discharge Plan - Follow Up Plan Condition: IMPROVED Disposition: HOME/ ROUTINE Instructions: Pneumonia, Adult (DC), Sepsis, Adult (DC) Referrals: Cheli Samson MD [Primary Care Provider] - <Kenzie Kauffman - Last Filed: 01/27/19 16:52> Provider - Provider Date of Admission: 01/24/19 01:44 Attending physician: Po Naik MD Primary care physician: Cheli Samson MD Consults: 01/24/19 05:26 Nursing Referral for Wound Care Routine Comment: Physician Instructions: Reason For Exam: Redness on B/L arms and legs Hospital Course - Lab Results Lab Results: Micro Results 01/25/19 13:14 Sputum Gram Stain - Final 01/25/19 13:14 Sputum Sputum Culture - Final NORMAL ORAL MARCUS 01/24/19 02:05 Blood-Venous Blood Culture - Preliminary NO GROWTH AFTER 3 DAYS 01/24/19 01:55 Blood-Venous Blood Culture - Preliminary NO GROWTH AFTER 3 DAYS 01/24/19 03:50 Urine,Clean Catch Urine Culture - Final No Growth (<1,000 CFU/ML) Most Recent Lab Values WBC 9.6 K/uL (4.8-10.8) 01/27/19 04:35 RBC 3.72 Mil/uL (3.80-5.20) L 01/27/19 04:35 Hgb 9.9 g/dL (12.0-16.0) L 01/27/19 04:35 Hct 30.4 % (34.0-47.0) L 01/27/19 04:35 MCV 81.7 fl (81.0-99.0) 01/27/19 04:35 MCH 26.6 pg (27.0-31.0) L 01/27/19 04:35 MCHC 32.6 g/dL (33.0-37.0) L 01/27/19 04:35 RDW 17.6 % (11.5-14.5) H 01/27/19 04:35 Plt Count 304 K/uL (130-400) 01/27/19 04:35 MPV 8.5 fl (7.2-11.7) 01/27/19 04:35 Neut % (Auto) 84.3 % (50.0-75.0) H 01/27/19 04:35 Lymph % (Auto) 8.4 % (20.0-40.0) L 01/27/19 04:35 [place] % (Auto) 4.0 % (0.0-10.0) 01/27/19 04:35 Eos % (Auto) 3.1 % (0.0-4.0) 01/27/19 04:35 Baso % (Auto) 0.2 % (0.0-2.0) 01/27/19 04:35 Neut # (Auto) 8.1 K/uL (1.8-7.0) H 01/27/19 04:35 Lymph # (Auto) 0.8 K/uL (1.0-4.3) L 01/27/19 04:35 [place] # (Auto) 0.4 K/uL (0.0-0.8) 01/27/19 04:35 Eos # (Auto) 0.3 K/uL (0.0-0.7) 01/27/19 04:35 Baso # (Auto) 0.0 K/uL (0.0-0.2) 01/27/19 04:35 Neutrophils % (Manual) 70 % (42-75) 01/24/19 08:30 Band Neutrophils % 16 % (0-2) H* 01/24/19 08:30 Lymphocytes % (Manual) 7 % (20-50) L 01/24/19 08:30 Reactive Lymphs % 3 % (0-0) H 01/24/19 08:30 Monocytes % (Manual) 4 % (0-10) 01/24/19 08:30 Platelet Estimate Normal (NORMAL) 01/24/19 08:30 Anisocytosis (manual) Slight 01/24/19 08:30 Sodium 137 mmol/l (132-148) 01/27/19 04:35 Potassium 4.0 MMOL/L (3.6-5.0) 01/27/19 04:35 Chloride 107 mmol/L (98-107) 01/27/19 04:35 Carbon Dioxide 25 mmol/L (22-30) 01/27/19 04:35 Anion Gap 9 (10-20) L 01/27/19 04:35 BUN 15 mg/dl (7-17) 01/27/19 04:35 Creatinine 0.6 mg/dl (0.7-1.2) L 01/27/19 04:35 Est GFR ( Amer) > 60 01/27/19 04:35 Est GFR (Non-Af Amer) > 60 01/27/19 04:35 POC Glucose (mg/dL) 227 mg/dL (65-110) H 01/27/19 15:58 Random Glucose 246 mg/dL (65-105) H 01/27/19 04:35 Lactic Acid 3.5 mmol/L (0.7-2.1) H 01/24/19 05:40 Calcium 7.8 mg/dL (8.4-10.2) L 01/27/19 04:35 Phosphorus 3.9 mg/dl (2.5-4.5) 01/24/19 08:30 Magnesium 1.4 MG/DL (1.6-2.3) L 01/24/19 08:30 Total Bilirubin 0.4 mg/dl (0.2-1.3) 01/24/19 08:45 AST 18 U/L (14-36) 01/24/19 08:45 ALT 18 U/L (9-52) 01/24/19 08:45 Alkaline Phosphatase 80 U/L (38-126) 01/24/19 08:45 Troponin I 0.0200 ng/mL (0.00-0.120) 01/24/19 02:05 NT-Pro-B Natriuret Pep 829 pg/ml (0-900) 01/24/19 02:05 Total Protein 6.1 G/DL (6.3-8.2) L 01/24/19 08:45 Albumin 3.0 g/dL (3.5-5.0) L 01/24/19 08:45 Globulin 3.1 gm/dL (2.2-3.9) 01/24/19 08:45 Albumin/Globulin Ratio 1.0 (1.0-2.1) 01/24/19 08:45 Lipase 78 U/L (23-300) 01/24/19 02:05 Procalcitonin 49.24 NG/ML (0.19-0.49) H 01/24/19 08:30 Urine Color Yellow (YELLOW) 01/24/19 03:50 Urine Clarity Cloudy (Clear) 01/24/19 03:50 Urine pH 5.0 (5.0-8.0) 01/24/19 03:50 Ur Specific [place] 1.015 (1.003-1.030) 01/24/19 03:50 Urine Protein Negative mg/dL (NEGATIVE) 01/24/19 03:50 Urine Glucose (UA) >=500 mg/dL (NEGATIVE) 01/24/19 03:50 Urine Ketones Negative mg/dL (NEGATIVE) 01/24/19 03:50 Urine Blood Negative (NEGATIVE) 01/24/19 03:50 Urine Nitrate Negative (NEGATIVE) 01/24/19 03:50 Urine Bilirubin Negative (NEGATIVE) 01/24/19 03:50 Urine Urobilinogen 0.2-1.0 mg/dL (0.2-1.0) 01/24/19 03:50 Ur Leukocyte Esterase Neg Jethro/uL (Negative) 01/24/19 03:50 Urine Microscopic WBC 1 /hpf (0-5) 01/24/19 03:50 Ur Squamous Epith Cells 2 /hpf (0-5) 01/24/19 03:50 Influenza Typ A,B (EIA) Negative for flu a/b (NEGATIVE) 01/24/19 02:50 Mycoplasma pneumon IgM Negative (NEGATIVE) 01/25/19 06:30 Attending/Attestation - Attestation I have personally seen and examined this patient.: Yes I have fully participated in the care of the patient.: Yes I have reviewed all pertinent clinical information, including history, physical exam and plan: Yes Notes (Text): 1.Sepsis secondary to multifocal Pneumonia Continue Vanco and Aztreonam- willd/c to TCU to continue IV antibiotics for 1 more week fever and leukocytosis resolved 2.Pneumonia likely bacterial Legionella AG, Mycoplasma Ag : Negative Influenza negative received Vanco and Aztreonam 3.Hyponatremia--most likely secondary to volume depletion , Pneumonia and uncontrolled DM. resolved with IVF 4.Uncontrolled DM with hyperglycemia and hypoglycemia changed to low dose 5 units Levemir only ( from 24 at home) d/c Januvia and Metformin 5.Azotemia improved with IVF 6.Hypertension cont Imdur and Lasix 7.Dementia prob Alzheimer's 8. Constipation laxatives, stool softener Pt had BM today DVt prophylaxis on Lovenox
--- NOTE | 2019-01-27 17:20 | CP.PCM.PN ---
<Heike Arevalo - Last Filed: 01/27/19 17:21> Subjective - Date & Time of Evaluation Date of Evaluation: 01/27/19 Time of Evaluation: 09:46 - Subjective Subjective: Patient seen and examined this morning. No episode of hypoglycemia occurred last night. Patient sitting upright in bed. Denies any f/c/n/vomitting, cp or sob. Objective - Vital Signs/Intake and Output Vital Signs (last 24 hours): Temp Pulse Resp BP Pulse Ox 98.8 F 99 H 20 144/59 L 98 01/27/19 16:25 01/27/19 16:25 01/27/19 16:25 01/27/19 16:25 01/27/19 16:25 - Medications Medications: Current Medications Acetaminophen (Tylenol 325mg Tab) 650 mg PO Q6 PRN PRN Reason: Pain, moderate (4-7) Acetaminophen (Tylenol 325mg Tab) 650 mg PO Q6 PRN PRN Reason: Fever >100.4 F Albuterol/Ipratropium (Duoneb 3 Mg/0.5 Mg (3 Ml) Ud) 3 ml INH RQ4 PRN PRN Reason: Shortness of Breath Aspirin (Ecotrin) 81 mg PO DAILY [facility] Last Admin: 01/27/19 08:39 Dose: 81 mg Cholecalciferol (Vitamin D) 1,000 intlu PO DAILY [facility] Last Admin: 01/27/19 08:36 Dose: 1,000 intlu Dextrose (Dextrose 50% Inj) 0 ml IV STAT PRN; Protocol PRN Reason: Hypoglycemia Protocol Last Admin: 01/26/19 05:37 Dose: 50 ml Dextrose (Glutose 15) 0 gm PO ONCE PRN; Protocol PRN Reason: Hypoglycemia Protocol Dimethicone (Proshield Plus Skin Protectant) 1 applic TOP Q8 PRN PRN Reason: incontinence Last Admin: 01/27/19 08:35 Dose: 1 applic Docusate Sodium (Colace) 200 mg PO DAILY [facility] Last Admin: 01/27/19 08:34 Dose: 200 mg Enoxaparin Sodium (Lovenox) 40 mg SC DAILY [facility]; Protocol Last Admin: 01/27/19 08:34 Dose: 40 mg Furosemide (Lasix) 40 mg PO DAILY [facility] Last Admin: 01/27/19 11:01 Dose: 40 mg Glucagon (Glucagen Diagnostic Kit) 0 mg IM STAT PRN; Protocol PRN Reason: Hypoglycemia Protocol Aztreonam 1 gm/ Sodium (Chloride) 100 mls @ 100 mls/hr IVPB Q12 [facility]; Protocol Last Admin: 01/27/19 08:29 Dose: 100 mls/hr Vancomycin HCl 1 gm/ Sodium (Chloride) 250 mls @ 166.667 mls/hr IVPB Q12 [facility]; Protocol Last Admin: 01/27/19 08:30 Dose: 166.667 mls/hr Insulin Detemir (Levemir) 5 units SC DAILY [facility] Last Admin: 01/27/19 08:37 Dose: 5 u Insulin Human Lispro (Humalog) 0 units SC ACHS [facility]; Protocol Last Admin: 01/27/19 13:41 Dose: 10 units Isosorbide Mononitrate (Imdur Er) 30 mg PO DAILY [facility] Last Admin: 01/27/19 08:39 Dose: 30 mg Ketorolac Tromethamine (Toradol) 30 mg IVP Q6 PRN PRN Reason: Pain, severe (8-10) Lactulose (Enulose) 20 gm PO DAILY PRN PRN Reason: Constipation Magnesium Hydroxide (Milk Of Magnesia) 30 ml PO DAILY PRN PRN Reason: Constipation Megestrol Acetate (Megace) 400 mg PO DAILY [facility] Last Admin: 01/27/19 08:35 Dose: 400 mg Ondansetron HCl (Zofran Inj) 4 mg IVP Q6 PRN PRN Reason: Nausea/Vomiting Sitagliptin Phosphate (Januvia) 100 mg PO DAILY [facility] Last Admin: 01/25/19 08:17 Dose: 100 mg - Labs Labs: 01/27/19 04:35 01/27/19 04:35 - Constitutional Appears: Non-toxic - Head Exam Head Exam: ATRAUMATIC, NORMAL INSPECTION - Eye Exam Pupil Exam: PERRL - ENT Exam ENT Exam: Mucous Membranes Moist - Respiratory Exam Additional comments: crackles in right lower bases - Cardiovascular Exam Cardiovascular Exam: REGULAR RHYTHM, +S1, +S2 - GI/Abdominal Exam GI & Abdominal Exam: Soft, Normal Bowel Sounds. absent: Rigid, Tenderness - Back Exam Additional comments: b/l lower extremity atrophy - Neurological Exam Neurological Exam: Alert, Awake, Oriented x3 - Psychiatric Exam Psychiatric exam: Normal Mood - Skin Skin Exam: Dry Assessment and Plan - Assessment and Plan (Free Text) Assessment: 83 y/o female with PMH Dementia, bedbound , DM , HTN brought by family for evaluation of respiratory symptoms which included congestion, cough, sputum production & subjective fever. Patient seen and examined this morning. Patient sitting upright in bed. Denies any f/c/abdominal pain, n or v. Will be discharged to TCU for continuation of IV antibiotics for 1 more week. 1. Sepsis secondary (criteria met on admission) to multifocal pneumonia -Blood cultures showed no growth -C/w vanco & aztreonam (day 4) 2. CAP -FU legionella; mycoplasma antigen neg -C/w IV antibiotics -FU sputum cultures; gram stain: many gram positive cocci; rare polymorphonuclear wbcs; rare epithelial cells 3. Hyponatremia ( likely secondary to volume depletion) NA- initially 128; 137 today -C/w IV fluid 4. Uncontrolled DM -C/w IVF -C/w diabetic diet -Initial sugars- 390; recent 204 -Accucheck, insulin coverage, - januvia & metformin on hold -Levemir decreased to 5 units this morning 5. Hypoglycemia (acute) -hold diabetic meds -Glucose: 34 last night; 33 previous night; level increased after dextrose was given -Switched fluids to D5, with NS & 20meQof KCL 6. Azotemia (likely due to dehydration -C/w IV fluids 7. HTN -hold bc BP 98-99 systolic 8. Hypokalemia (acute) -4 today; initially 4.4 9. Dementia 10. Bedbound with muscle atrophy 11. Constipation with abdominal tenderness C/wl lactulose 20gm PO QD PRN <Kenzie Kauffman - Last Filed: 01/27/19 17:54> Objective - Vital Signs/Intake and Output Vital Signs (last 24 hours): Temp Pulse Resp BP Pulse Ox 98.8 F 99 H 20 144/59 L 98 01/27/19 16:25 01/27/19 16:25 01/27/19 16:25 01/27/19 16:25 01/27/19 16:25 - Medications Medications: Current Medications Acetaminophen (Tylenol 325mg Tab) 650 mg PO Q6 PRN PRN Reason: Pain, moderate (4-7) Acetaminophen (Tylenol 325mg Tab) 650 mg PO Q6 PRN PRN Reason: Fever >100.4 F Albuterol/Ipratropium (Duoneb 3 Mg/0.5 Mg (3 Ml) Ud) 3 ml INH RQ4 PRN PRN Reason: Shortness of Breath Aspirin (Ecotrin) 81 mg PO DAILY [facility] Last Admin: 01/27/19 08:39 Dose: 81 mg Cholecalciferol (Vitamin D) 1,000 intlu PO DAILY [facility] Last Admin: 01/27/19 08:36 Dose: 1,000 intlu Dextrose (Dextrose 50% Inj) 0 ml IV STAT PRN; Protocol PRN Reason: Hypoglycemia Protocol Last Admin: 01/26/19 05:37 Dose: 50 ml Dextrose (Glutose 15) 0 gm PO ONCE PRN; Protocol PRN Reason: Hypoglycemia Protocol Dimethicone (Proshield Plus Skin Protectant) 1 applic TOP Q8 PRN PRN Reason: incontinence Last Admin: 01/27/19 08:35 Dose: 1 applic Docusate Sodium (Colace) 200 mg PO DAILY [facility] Last Admin: 01/27/19 08:34 Dose: 200 mg Enoxaparin Sodium (Lovenox) 40 mg SC DAILY [facility]; Protocol Last Admin: 01/27/19 08:34 Dose: 40 mg Furosemide (Lasix) 40 mg PO DAILY [facility] Last Admin: 01/27/19 11:01 Dose: 40 mg Glucagon (Glucagen Diagnostic Kit) 0 mg IM STAT PRN; Protocol PRN Reason: Hypoglycemia Protocol Aztreonam 1 gm/ Sodium (Chloride) 100 mls @ 100 mls/hr IVPB Q12 [facility]; Protocol Last Admin: 01/27/19 08:29 Dose: 100 mls/hr Vancomycin HCl 1 gm/ Sodium (Chloride) 250 mls @ 166.667 mls/hr IVPB Q12 [facility]; Protocol Last Admin: 01/27/19 08:30 Dose: 166.667 mls/hr Insulin Detemir (Levemir) 5 units SC DAILY [facility] Last Admin: 01/27/19 08:37 Dose: 5 u Insulin Human Lispro (Humalog) 0 units SC ACHS [facility]; Protocol Last Admin: 01/27/19 17:45 Dose: 4 units Isosorbide Mononitrate (Imdur Er) 30 mg PO DAILY [facility] Last Admin: 01/27/19 08:39 Dose: 30 mg Ketorolac Tromethamine (Toradol) 30 mg IVP Q6 PRN PRN Reason: Pain, severe (8-10) Lactulose (Enulose) 20 gm PO DAILY PRN PRN Reason: Constipation Magnesium Hydroxide (Milk Of Magnesia) 30 ml PO DAILY PRN PRN Reason: Constipation Megestrol Acetate (Megace) 400 mg PO DAILY [facility] Last Admin: 01/27/19 08:35 Dose: 400 mg Ondansetron HCl (Zofran Inj) 4 mg IVP Q6 PRN PRN Reason: Nausea/Vomiting Sitagliptin Phosphate (Januvia) 100 mg PO DAILY [facility] Last Admin: 01/25/19 08:17 Dose: 100 mg - Labs Labs: 01/27/19 04:35 01/27/19 04:35 Attending/Attestation - Attestation I have personally seen and examined this patient.: Yes I have fully participated in the care of the patient.: Yes I have reviewed all pertinent clinical information, including history, physical exam and plan: Yes Notes (Text): 1.Sepsis secondary to multifocal Pneumonia Continue Vanco and Aztreonam- willd/c to TCU to continue IV antibiotics for 1 more week fever and leukocytosis resolved 2.Pneumonia likely bacterial Legionella AG, Mycoplasma Ag : Negative Influenza negative received Vanco and Aztreonam 3.Hyponatremia--most likely secondary to volume depletion , Pneumonia and uncontrolled DM. resolved with IVF 4.Uncontrolled DM with hyperglycemia and hypoglycemia changed to low dose 5 units Levemir only ( from 24 at home) d/c Januvia and Metformin 5.Azotemia improved with IVF 6.Hypertension cont Imdur and Lasix 7.Dementia prob Alzheimer's 8. Constipation laxatives, stool softener Pt had BM today DVt prophylaxis on Lovenox Discharge on hold -No bed available in TCU today
[2019-01-28 05:17] VITALS: RESP 18
[2019-01-28] MEDS: Proshield Plus GEL TOP PRN (06:00)
[2019-01-28] MEDS: Insulin Lispro (humaLOG) 100 Units/ml Inj SC SCH (06:54)
[2019-01-28 07:25] LABS: BASO % 0.2 % (0.0-2.0); EOS # 0.5 K/uL (0.0-0.7); EOS % 3.7 % (0.0-4.0); HEMOGLOBIN 10.4 g/dL (12.0-16.0); LYMPH # 1.5 K/uL (1.0-4.3); LYMPH % 10.2 % (20.0-40.0); MEAN CELL VOLUME 81.4 fl (81.0-99.0); MEAN PLATELET VOLUME 8.2 fl (7.2-11.7); MONO # 0.6 K/uL (0.0-0.8); MONO % 4.3 % (0.0-10.0); NEUT # 11.6 K/uL (1.8-7.0); NEUT % 81.6 % (50.0-75.0); RED CELL DISTRIBUTION WIDTH 17.6 % (11.5-14.5); WHITE BLOOD COUNT 14.2 K/uL (4.8-10.8)
[2019-01-28 07:43] LABS: BLOOD UREA NITROGEN 14 mg/dl (7-17); CALCIUM 8.2 mg/dL (8.4-10.2); GFR NON-AFRICAN AMERICAN > 60
[2019-01-28 07:50] VITALS: BP 167/83; PULSE 102; TEMP 98; O2SAT 97
[2019-01-28] MEDS: Aztreonam 1 GM in Sodium Chloride 0.9% 100 ML IVPB SCH (09:26)
[2019-01-28] MEDS: Cholecalciferol 1,000 INTLU TAB PO SCH (09:29)
[2019-01-28] MEDS: Insulin Detemir 100 Units/ml Inj SC SCH (09:30)
[2019-01-28] MEDS: Enoxaparin 40 mg Syringe SC SCH (09:30)
[2019-01-28] MEDS: Megestrol Acetate 40 mg/ml Cup PO SCH (09:30)
== END 2019-01-28 10:36 | DRG 871 ==
LOC: H.ER 00:34 → H.ERHOLD 01:44 → H.TEL 04:15
PROVIDERS: ADMIT Internal Medicine; ATTEND Internal Medicine
DX: A41.9 Sepsis, unspecified organism (principal); J15.9 Unspecified bacterial pneumonia; J44.0 Chronic obstructive pulmonary disease with (acute) lower respiratory infection; E87.1 Hypo-osmolality and hyponatremia; Z74.01 Bed confinement status; Z79.4 Long term (current) use of insulin; E87.6 Hypokalemia; E11.649 Type 2 diabetes mellitus with hypoglycemia without coma; E11.65 Type 2 diabetes mellitus with hyperglycemia; E78.00 Pure hypercholesterolemia, unspecified; E78.5 Hyperlipidemia, unspecified; E86.0 Dehydration; G30.9 Alzheimer's disease, unspecified; F02.80 Dementia in other diseases classified elsewhere, unspecified severity, without behavioral disturbance, psychotic disturbance, mood disturbance, and anxiety; I10 Essential (primary) hypertension; K59.00 Constipation, unspecified; M81.0 Age-related osteoporosis without current pathological fracture; Z79.82 Long term (current) use of aspirin; Z90.49 Acquired absence of other specified parts of digestive tract; Z93.3 Colostomy status; R32 Unspecified urinary incontinence; Z79.84 Long term (current) use of oral hypoglycemic drugs; Z79.899 Other long term (current) drug therapy; M62.50 Muscle wasting and atrophy, not elsewhere classified, unspecified site; R00.0 Tachycardia, unspecified

== ENCOUNTER 2019-01-27 12:35 | Inpatient (IN) | payer OTHER, MEDICAID ==
[2019-01-28 10:51] VITALS: BMI 24.8
[2019-01-28] MEDS ORDERED: Magnesium Hydroxide Susp 30 ml UD PO PRN (11:18)
[2019-01-28] MEDS ORDERED: Dextrose 50% SYRINGE Inj (50 ml) IV PRN (11:38)
[2019-01-28] MEDS ORDERED: Glucagon Recombinant 1 mg Inj IM PRN (11:38)
--- NOTE | 2019-01-28 14:14 | CP.PCM.HP ---
History of Present Illness - History of Present Illness History of Present Illness: 83 y/o female with pmhx of Dementia, Diabetes, Fractures, HTN, Hypercholesterolemia, Osteoporosis and chronically bedbound admitted to [facility] with Multifocal pneumonia and severe sepsis. CXR showed multifocal infiltrates. Since admission patient has been on Vancomycin and Aztreonam ( today on day #5). Vanco trough was checked and was elevated, 25, yesterday, Vancomycin dose was held, and repeat Vanco trough this morning was improved from prior test, 17.5. Also on admission patient was found to be constipated, treated with dulcolax DE, and continued on Colace daily, and lactulose PRN. Will be Patient was seen and evaluated this morning. Denies chest pain, SOB, N/V, abd pain. Still coughing. Clinically stable for discharged to TCU for continuation of IV antibiotics. PMD: Cheli Samson PMH: Dementia, Diabetes, Fractures, HTN, Hypercholesterolemia, Osteoporosis and bedbound PSH: Cholecystectomy Meds: as per EMR Allg: Ampicillin and Penicillins SH: Denies FH: Denies Present on Admission - Present on Admission Any Indicators Present on Admission: No History of DVT/PE: No History of Uncontrolled Diabetes: No Urinary Catheter: No Decubitus Ulcer Present: No Review of Systems - Review of Systems All systems: reviewed and no additional remarkable complaints except (as per hpi) Past Patient History - Infectious Disease Hx of Infectious Diseases: None - Past Medical History & Family History Past Medical History?: Yes - Past Social History Smoking Status: Never Smoked - CARDIAC Hx Congestive Heart Failure: Yes Hx Hypercholesterolemia: Yes Hx Hypertension: Yes - PULMONARY Hx Respiratory Disorders: No Hx Pneumonia: Yes - NEUROLOGICAL Hx Dementia: Yes - HEENT Hx HEENT Problems: No - RENAL Hx Chronic Kidney Disease: No - ENDOCRINE/METABOLIC Hx Endocrine Disorders: Yes (DM) Hx Diabetes Mellitus Type 2: Yes - HEMATOLOGICAL/ONCOLOGICAL Hx AIDS: No Hx Human Immunodeficiency Virus (HIV): No - INTEGUMENTARY Hx Dermatological Problems: No - MUSCULOSKELETAL/RHEUMATOLOGICAL Hx Falls: No - GASTROINTESTINAL Hx Gastrointestinal Disorders: Yes Hx Colostomy: Yes Other/Comment: hx of bowel obstruction - GENITOURINARY/GYNECOLOGICAL Hx Genitourinary Disorders: Yes Hx Incontinence: Yes - PSYCHIATRIC Hx Substance Use: No - SURGICAL HISTORY Hx Cholecystectomy: Yes - ANESTHESIA Hx Anesthesia: Yes Hx Anesthesia Reactions: No Hx Malignant Hyperthermia: No Meds Allergies/Adverse Reactions: Allergies Allergy/AdvReac Type Severity Reaction Status Date / Time ampicillin Allergy RASH Verified 01/28/19 10:15 Penicillins Allergy RASH Verified 01/28/19 10:15 Physical Exam - Constitutional Appears: Non-toxic, No Acute Distress, Chronically Ill - Eye Exam Eye Exam: Normal appearance - ENT Exam ENT Exam: Mucous Membranes Moist - Respiratory Exam Respiratory Exam: Decreased Breath Sounds, Rales (bilateral in lower lobes), NORMAL BREATHING PATTERN. absent: Rhonchi, Wheezes, Respiratory Distress - Cardiovascular Exam Cardiovascular Exam: REGULAR RHYTHM, +S1, +S2 - GI/Abdominal Exam GI & Abdominal Exam: Normal Bowel Sounds, Soft. absent: Distended, Guarding, Rebound, Rigid, Tenderness - Extremities Exam Extremities exam: Positive for: normal inspection. Negative for: calf tenderness, pedal edema - Neurological Exam Neurological exam: Alert Additional comments: oriented in person Results - Vital Signs Recent Vital Signs: Last Vital Signs Temp Pulse 100 H 01/28/19 11:39 Resp 24 01/28/19 11:39 BP 114/55 L 01/28/19 12:10 Pulse Ox Assessment & Plan - Assessment and Plan (Free Text) Assessment: 83 y/o female with pmhx of Dementia, Diabetes, Fractures, HTN, Hypercholesterolemia, Osteoporosis and chronically bedbound admitted to [facility] with Multifocal pneumonia and severe sepsis. Now being transfer to TCU unit for continuation of IV antibiotics. Plan: Sepsis secondary to multifocal Pneumonia Blood cx with no growth Was started on Vanco and Aztreonam. Will hold Vanco today since trough is 17. Continue Aztreonam and repeat Vanco trough Continue Duonebs PRN O2 via NC PRN CAP on IV antibiotics Hold Vanco Hyponatremia most likely secondary to volume depletion , Pneumonia and uncontrolled DM. resolved with IVF Uncontrolled DM with hyperglycemia and hypoglycemia Discontinue levemir and Januvia Diabetic diet , accucheck,,insulin coverage Started Glucerna bedtime Azotemia improved with IVF Hypertension controlled continue isosorbide Dementia pleasant Bedbound with muscle atrophy Constipation KUB showed moderate stool in intestine Given dulcolax DE Continue Colace daily. Discontinued Ferrous sulfate DVt prophylaxis on Lovenox Poor PO intake Started Megace Glucerna bedtime Soft pure diet - Date & Time Date: 01/28/19 Time: 10:00
[2019-01-28] MEDS ORDERED: Insulin Lispro (humaLOG) 100 Units/ml Inj SC STA (16:12)
[2019-01-28] MEDS: Insulin Lispro (humaLOG) 100 Units/ml Inj SC SCH (16:36)
[2019-01-28] MEDS ORDERED: AZTREONAM 1 GM IV SCH (21:00)
[2019-01-28] MEDS: Aztreonam 1 GM in Sodium Chloride 0.9% 100 ML IV SCH (21:34)
[2019-01-28] MEDS: Albuterol-Ipratrop 3 mg / 0.5 (3 ml) UD INH PRN (22:12)
[2019-01-29] MEDS: Insulin Lispro (humaLOG) 100 Units/ml Inj SC SCH ×5 (02:50→21:48)
[2019-01-29 07:57] LABS: BLOOD UREA NITROGEN 15 mg/dl (7-17); CALCIUM 8.3 mg/dL (8.4-10.2); GFR NON-AFRICAN AMERICAN > 60
[2019-01-29 08:19] LABS: BASO % 0.3 % (0.0-2.0); EOS # 0.4 K/uL (0.0-0.7); EOS % 3.7 % (0.0-4.0); HEMOGLOBIN 10.8 g/dL (12.0-16.0); LYMPH # 1.2 K/uL (1.0-4.3); LYMPH % 9.9 % (20.0-40.0); MEAN CELL VOLUME 82.2 fl (81.0-99.0); MEAN CORPUSCULAR HEMOGLOBIN 26.5 pg (27.0-31.0); MEAN CORPUSCULAR HGB CONC 32.2 g/dL (33.0-37.0); MEAN PLATELET VOLUME 8.5 fl (7.2-11.7); MONO # 0.5 K/uL (0.0-0.8); MONO % 3.9 % (0.0-10.0); NEUT # 9.6 K/uL (1.8-7.0); NEUT % 82.2 % (50.0-75.0); NRBC % 0.1 % (0.0-0.0); PLATELET COUNT 187 K/uL (130-400); RED CELL DISTRIBUTION WIDTH 17.6 % (11.5-14.5); WHITE BLOOD COUNT 11.6 K/uL (4.8-10.8)
[2019-01-29] MEDS: Aztreonam 1 GM in Sodium Chloride 0.9% 100 ML IV SCH ×2 (08:52→20:04)
[2019-01-29] MEDS: Megestrol Acetate 40 mg/ml Cup PO SCH (08:54)
[2019-01-29] MEDS: Cholecalciferol 1,000 INTLU TAB PO SCH (08:54)
[2019-01-29] MEDS: Enoxaparin 40 mg Syringe SC SCH (08:54)
[2019-01-29] MEDS ORDERED: Enoxaparin 40 mg Syringe SC SCH (09:00)
[2019-01-29 13:18] LABS: ANISOCYTOSIS SLIGHT; BANDS 1 % (0-2); EOSINOPHIL 3 % (0-7); HYPOCHROMIC SLIGHT; LYMPHOCYTE 10 % (20-50); MONOCYTE 5 % (0-10); NEUTROPHIL 81 % (42-75); PLATELET ESTIMATE NORMAL (NORMAL); TARGET CELLS SLIGHT; TEARDROP CELLS SLIGHT; TOTAL CELLS COUNTED 100
[2019-01-29 13:19] LABS: PLATELET CLUMPS PRESENT
[2019-01-30] MEDS: Insulin Lispro (humaLOG) 100 Units/ml Inj SC SCH ×4 (06:57→21:30)
[2019-01-30] MEDS: Proshield Plus GEL TOP PRN ×2 (08:50→16:48)
[2019-01-30] MEDS: Enoxaparin 40 mg Syringe SC SCH (08:52)
[2019-01-30] MEDS: Cholecalciferol 1,000 INTLU TAB PO SCH (08:52)
[2019-01-30] MEDS: Megestrol Acetate 40 mg/ml Cup PO SCH (08:53)
[2019-01-30] MEDS: Aztreonam 1 GM in Sodium Chloride 0.9% 100 ML IV SCH ×2 (09:03→20:10)
[2019-01-30] MEDS: Albuterol-Ipratrop 3 mg / 0.5 (3 ml) UD INH PRN (11:43)
--- NOTE | 2019-01-30 12:03 | CP.PCM.CON ---
History of Present Illness - History of Present Illness History of Present Illness: Palliative Care consult requested by Dr. Kauffman Patient is a 83 year old female who family brought her to the ED on 01/24 due to SOB,labored breathing, vomiting, diarrhea x2 days. CXR was done at that time and showed multiple infiltrates. Patient was then admitted for multifocal pneumonia and started on antibiotics. Patient currently on TCU. PMH: Dementia, DM, HTN, Hypercholesterolemia, Osteoporosis Soc hx:lives with family Fam hx: Unknown Review of Systems - Review of Systems Systems not reviewed;Unavailable: Dementia Review of Systems: Limited ROS obtained from patient due to disorientation Past Patient History - Infectious Disease Hx of Infectious Diseases: None - Past Medical History & Family History Past Medical History?: Yes - Past Social History Smoking Status: Never Smoked - CARDIAC Hx Congestive Heart Failure: Yes Hx Hypercholesterolemia: Yes Hx Hypertension: Yes - PULMONARY Hx Respiratory Disorders: No Hx Pneumonia: Yes - NEUROLOGICAL Hx Dementia: Yes - HEENT Hx HEENT Problems: No - RENAL Hx Chronic Kidney Disease: No - ENDOCRINE/METABOLIC Hx Endocrine Disorders: Yes (DM) Hx Diabetes Mellitus Type 2: Yes - HEMATOLOGICAL/ONCOLOGICAL Hx AIDS: No Hx Human Immunodeficiency Virus (HIV): No - INTEGUMENTARY Hx Dermatological Problems: No - MUSCULOSKELETAL/RHEUMATOLOGICAL Hx Falls: No - GASTROINTESTINAL Hx Gastrointestinal Disorders: Yes Hx Colostomy: Yes Other/Comment: hx of bowel obstruction - GENITOURINARY/GYNECOLOGICAL Hx Genitourinary Disorders: Yes Hx Incontinence: Yes - PSYCHIATRIC Hx Substance Use: No - SURGICAL HISTORY Hx Cholecystectomy: Yes - ANESTHESIA Hx Anesthesia: Yes Hx Anesthesia Reactions: No Hx Malignant Hyperthermia: No Meds Allergies/Adverse Reactions: Allergies Allergy/AdvReac Type Severity Reaction Status Date / Time ampicillin Allergy RASH Verified 01/28/19 10:15 Penicillins Allergy RASH Verified 01/28/19 10:15 - Medications Medications: Current Medications Acetaminophen (Tylenol 325mg Tab) 650 mg PO Q6 PRN PRN Reason: Fever >100.4 F Last Admin: 01/29/19 20:07 Dose: 650 mg Acetaminophen (Tylenol 325mg Tab) 650 mg PO Q6 PRN PRN Reason: Pain, moderate (4-7) Last Admin: 01/30/19 09:21 Dose: 650 mg Albuterol/Ipratropium (Duoneb 3 Mg/0.5 Mg (3 Ml) Ud) 3 ml INH RQ4 PRN PRN Reason: Shortness of Breath Last Admin: 01/30/19 11:43 Dose: 3 ml Aspirin (Ecotrin) 81 mg PO DAILY [facility] Last Admin: 01/30/19 08:52 Dose: 81 mg Cholecalciferol (Vitamin D) 1,000 intlu PO DAILY [facility] Last Admin: 01/30/19 08:52 Dose: 1,000 intlu Dextrose (Dextrose 50% Inj) 0 ml IV STAT PRN; Protocol PRN Reason: Hypoglycemia Protocol Dextrose (Glutose 15) 0 gm PO ONCE PRN; Protocol PRN Reason: Hypoglycemia Protocol Dimethicone (Proshield Plus Skin Protectant) 1 applic TOP Q8 PRN PRN Reason: incontinence Last Admin: 01/30/19 08:50 Dose: 1 applic Docusate Sodium (Colace) 200 mg PO DAILY [facility] Last Admin: 01/30/19 08:51 Dose: 200 mg Enoxaparin Sodium (Lovenox) 40 mg SC DAILY [facility]; Protocol Last Admin: 01/30/19 08:52 Dose: 40 mg Furosemide (Lasix) 40 mg PO DAILY [facility] Last Admin: 01/30/19 08:51 Dose: 40 mg Glucagon (Glucagen Diagnostic Kit) 0 mg IM STAT PRN; Protocol PRN Reason: Hypoglycemia Protocol Aztreonam 1 gm/ Sodium (Chloride) 100 mls @ 100 mls/hr IV Q12 [facility] Last Admin: 01/30/19 09:03 Dose: 100 mls/hr Insulin Human Lispro (Humalog) 0 units SC [facility]; Protocol Last Admin: 01/30/19 06:57 Dose: 2 u Isosorbide Mononitrate (Imdur Er) 30 mg PO DAILY [facility] Last Admin: 01/30/19 08:51 Dose: 30 mg Lactulose (Enulose) 20 gm PO DAILY PRN PRN Reason: Constipation Last Admin: 01/30/19 09:04 Dose: 20 gm Lorazepam (Ativan) 0.5 mg PO ONCE ONE Stop: 01/30/19 12:11 Magnesium Hydroxide (Milk Of Magnesia) 5 ml PO DAILY PRN PRN Reason: Constipation Last Admin: 01/30/19 07:53 Dose: 5 ml Megestrol Acetate (Megace) 400 mg PO DAILY [facility] Last Admin: 01/30/19 08:53 Dose: 400 mg Temazepam (Restoril) 15 mg PO HS JAMAR Physical Exam - Constitutional Appears: No Acute Distress, Chronically Ill - Head Exam Head Exam: ATRAUMATIC, NORMAL INSPECTION, NORMOCEPHALIC - Eye Exam Eye Exam: Normal appearance - ENT Exam ENT Exam: Mucous Membranes Moist - Respiratory Exam Respiratory Exam: Decreased Breath Sounds - Cardiovascular Exam Cardiovascular Exam: REGULAR RHYTHM - GI/Abdominal Exam GI & Abdominal Exam: Normal Bowel Sounds - Extremities Exam Additional comments: discoloration to bilateral lower extremities - Neurological Exam Neurological exam: Alert Additional comments: Oriented to self - Psychiatric Exam Psychiatric exam: Anxious - Skin Skin Exam: Dry, Intact, Warm Results - Vital Signs Recent Vital Signs: Last Vital Signs Temp 98.8 F 01/30/19 08:25 Pulse 97 H 01/30/19 08:25 Resp 18 01/30/19 08:25 BP 141/90 01/30/19 08:51 Pulse Ox 98 01/30/19 08:25 - Labs Result Diagrams: 01/29/19 06:45 01/29/19 06:45 Labs: Laboratory Results - last 24 hr 01/29/19 01/29/19 01/29/19 06:45 16:07 20:48 Neutrophils % (Manual) 81 H Band Neutrophils % 1 Lymphocytes % (Manual) 10 L Monocytes % (Manual) 5 Eosinophils % (Manual) 3 Platelet Estimate Normal Plt Clumps, EDTA Present Hypochromasia (manual) Slight Anisocytosis (manual) Slight Target Cells Slight Tear Drop Cells Slight POC Glucose (mg/dL) 275 H 301 H 01/30/19 01/30/19 06:18 10:28 Neutrophils % (Manual) Band Neutrophils % Lymphocytes % (Manual) Monocytes % (Manual) Eosinophils % (Manual) Platelet Estimate Plt Clumps, EDTA Hypochromasia (manual) Anisocytosis (manual) Target Cells Tear Drop Cells POC Glucose (mg/dL) 227 H 306 H Assessment & Plan - Assessment and Plan (Free Text) Assessment: Full Code, there is no advanced directive in the chart Palliative Performance Scale 30% I reviewed medical records, diagnostic tests, and examined the patient in bed. Examined patient in bed, patient is awake, alert, and oriented to self. Complaining of some abdominal discomfort and is extremely restless. as per nursing staff patient gets melatonin at home Goals of Care-unable to discuss with patient due to Altered Mental status. Daughter Kandy (decision maker) was called, waiting for call back. Code Status- Full code at this time, Patient does not have advanced directive. Will discuss when contact with Daughter Kandy is made. Impression and Suggestion Pneumonia -continue antibiotics Dementia -redirect/reorient as needed Anxiety -melatonin, if not carried by pharmacy, then low dose xanax Decreased Mobility -Max assist with Adls, reposition q2h Incontinence -proper perineal care, keep skin clean and dry Palliative Care will remain on board as needed Time Spent with patient 50 min
[2019-01-31] MEDS: Proshield Plus GEL TOP SCH ×3 (01:43→16:39)
[2019-01-31] MEDS: Insulin Lispro (humaLOG) 100 Units/ml Inj SC SCH ×4 (06:51→22:45)
[2019-01-31] MEDS: Aztreonam 1 GM in Sodium Chloride 0.9% 100 ML IV SCH ×3 (08:37→22:48)
[2019-01-31] MEDS: Enoxaparin 40 mg Syringe SC SCH (08:38)
[2019-01-31] MEDS: Cholecalciferol 1,000 INTLU TAB PO SCH (08:39)
[2019-01-31] MEDS: Megestrol Acetate 40 mg/ml Cup PO SCH (08:39)
[2019-01-31] MEDS: Albuterol-Ipratrop 3 mg / 0.5 (3 ml) UD INH PRN (09:30)
--- NOTE | 2019-01-31 12:15 | CP.PCM.PN ---
Subjective - Date & Time of Evaluation Date of Evaluation: 01/31/19 Time of Evaluation: 13:00 - Subjective Subjective: Patient seen and examined bedside. Elderly female demented lying in bed in NAD. Denies any pain or discomfort .Hemodynamically stable ,afebrile As per staff with episodes of screaming on and off. Appears sleepy today but responds to questions Objective - Vital Signs/Intake and Output Vital Signs (last 24 hours): Temp Pulse Resp BP Pulse Ox 98.8 F 85 18 132/84 98 01/31/19 07:44 01/31/19 07:44 01/31/19 07:44 01/31/19 08:39 01/31/19 07:44 - Medications Medications: Current Medications Acetaminophen (Tylenol 325mg Tab) 650 mg PO Q6 PRN PRN Reason: Fever >100.4 F Last Admin: 01/29/19 20:07 Dose: 650 mg Acetaminophen (Tylenol 325mg Tab) 650 mg PO Q6 PRN PRN Reason: Pain, moderate (4-7) Last Admin: 01/31/19 08:42 Dose: 650 mg Albuterol/Ipratropium (Duoneb 3 Mg/0.5 Mg (3 Ml) Ud) 3 ml INH RQ4 PRN PRN Reason: Shortness of Breath Last Admin: 01/31/19 09:30 Dose: 3 ml Aspirin (Ecotrin) 81 mg PO DAILY [facility] Last Admin: 01/31/19 08:38 Dose: 81 mg Cholecalciferol (Vitamin D) 1,000 intlu PO DAILY [facility] Last Admin: 01/31/19 08:39 Dose: 1,000 intlu Dextrose (Dextrose 50% Inj) 0 ml IV STAT PRN; Protocol PRN Reason: Hypoglycemia Protocol Dextrose (Glutose 15) 0 gm PO ONCE PRN; Protocol PRN Reason: Hypoglycemia Protocol Dimethicone (Proshield Plus Skin Protectant) 1 applic TOP Q8 [facility] Last Admin: 01/31/19 08:40 Dose: 1 applic Docusate Sodium (Colace) 200 mg PO DAILY [facility] Last Admin: 01/31/19 08:39 Dose: 200 mg Enoxaparin Sodium (Lovenox) 40 mg SC DAILY [facility]; Protocol Last Admin: 01/31/19 08:38 Dose: 40 mg Furosemide (Lasix) 40 mg PO DAILY [facility] Last Admin: 01/31/19 08:39 Dose: 40 mg Glucagon (Glucagen Diagnostic Kit) 0 mg IM STAT PRN; Protocol PRN Reason: Hypoglycemia Protocol Aztreonam 1 gm/ Sodium (Chloride) 100 mls @ 100 mls/hr IV Q12 [facility] Last Admin: 01/31/19 08:37 Dose: 100 mls/hr Insulin Human Lispro (Humalog) 0 units SC [facility]S [facility]; Protocol Last Admin: 01/31/19 06:51 Dose: 3 u Isosorbide Mononitrate (Imdur Er) 30 mg PO DAILY [facility] Last Admin: 01/31/19 08:38 Dose: 30 mg Lactulose (Enulose) 20 gm PO DAILY PRN PRN Reason: Constipation Last Admin: 01/31/19 08:38 Dose: 20 gm Magnesium Hydroxide (Milk Of Magnesia) 5 ml PO DAILY PRN PRN Reason: Constipation Last Admin: 01/30/19 07:53 Dose: 5 ml Megestrol Acetate (Megace) 400 mg PO DAILY [facility] Last Admin: 01/31/19 08:39 Dose: 400 mg Temazepam (Restoril) 15 mg PO HS [facility] Last Admin: 01/30/19 21:13 Dose: 15 mg - Labs Labs: 01/29/19 06:45 01/29/19 06:45 - Constitutional Appears: Non-toxic, No Acute Distress - Head Exam Head Exam: ATRAUMATIC, NORMOCEPHALIC - Eye Exam Eye Exam: EOMI, PERRL Pupil Exam: NORMAL ACCOMODATION - ENT Exam ENT Exam: Mucous Membranes Moist, Normal Exam - Neck Exam Neck Exam: Full ROM, Normal Inspection - Respiratory Exam Respiratory Exam: Clear to Ausculation Bilateral, NORMAL BREATHING PATTERN. absent: Prolonged Expiratory Phase, Rhonchi, Wheezes, Respiratory Distress - Cardiovascular Exam Cardiovascular Exam: REGULAR RHYTHM, RRR, +S1, +S2. absent: JVD - GI/Abdominal Exam GI & Abdominal Exam: Soft, Normal Bowel Sounds. absent: Distended, Guarding, Tenderness, Rebound - Rectal Exam Rectal Exam: Deferred - Extremities Exam Extremities Exam: Normal Inspection Additional comments: bilateral LE with wasted muscle mass, chronic hyperpigmented skin changes bilaterally - Neurological Exam Neurological Exam: Alert, Awake, CN II-XII Intact Additional comments: demented - Psychiatric Exam Psychiatric exam: Normal Affect - Skin Skin Exam: Dry, Warm Assessment and Plan - Assessment and Plan (Free Text) Assessment: 83 y/o female with PMH Dementia, bedbound,DM , HTN brought by family for evalu ation of respiratory symptoms of congestion , cough , sputum production , subjective fever. Patient was diagnosed with Sepsis secondary to multifocal Pneumonia.She was started on Vanco and Aztreonam IV . Clinically improved and was transferred to TCU for continuation of IV antibiotics At present hemodynamically stable, afebrile With screaming episodes o n and off as per staff 1.Sepsis secondary to multifocal Pneumonia improved Continue IV antibiotics 2.CAP Continue Aztreonam. Resume vancomycin 1 g IV daily today ( last trough was 17 on 01/28 ad vancomycin was held) Continue Duonebs Q4 RTC and Acetylcysteine INH BID Aspiration precautions and feeding assistance 3.Uncontrolled DM with hyperglycemia and hypoglycemia Levemir and Januvia were discontinued due to episodes of hypoglycemia. Patient eating better and accuchecks overall in 300 Will start Levemir 10 unit SA HS tonight . Monitor for hypoglycemia Diabetic diet , accucheck,,insulin coverage continue Glucerna bedtime 4.Hypertension controlled continue isosorbide 5.Dementia with episodes of screaming Started Restoril bedtime keep close ton nurses station , reorient 6.Bedbound with muscle atrophy 7. Constipation Continue colace daily and Dulcolax PRN 8. Poor PO intake-- improving Started Megace Glucerna bedtime Soft pure diet
[2019-01-31] MEDS: Albuterol-Ipratrop 3 mg / 0.5 (3 ml) UD INH SCH ×2 (16:09→19:20)
[2019-01-31] MEDS ORDERED: Acetylcysteine 20% Inhal Soln (4ml) PO SCH ×2 (17:00→20:00)
[2019-01-31] MEDS: Acetylcysteine 20% Inhal Soln (4ml) INH SCH (19:20)
[2019-01-31] MEDS ORDERED: Insulin Lispro (humaLOG) 100 Units/ml Inj SC STA (22:10)
[2019-01-31] MEDS: Insulin Detemir 100 Units/ml Inj SC SCH (22:19)
[2019-02-01] MEDS: Proshield Plus GEL TOP SCH ×3 (01:44→16:51)
[2019-02-01] MEDS: Insulin Lispro (humaLOG) 100 Units/ml Inj SC SCH ×4 (07:05→22:02)
[2019-02-01] MEDS: Albuterol-Ipratrop 3 mg / 0.5 (3 ml) UD INH SCH ×4 (07:24→19:00)
[2019-02-01] MEDS: Acetylcysteine 20% Inhal Soln (4ml) INH SCH ×2 (07:25→19:00)
[2019-02-01] MEDS: Aztreonam 1 GM in Sodium Chloride 0.9% 100 ML IV SCH ×2 (09:49→22:03)
[2019-02-01] MEDS: Enoxaparin 40 mg Syringe SC SCH (09:49)
[2019-02-01] MEDS: Cholecalciferol 1,000 INTLU TAB PO SCH (09:50)
[2019-02-01] MEDS: Megestrol Acetate 40 mg/ml Cup PO SCH (09:50)
--- NOTE | 2019-02-01 13:07 | RAD ---
Date of service: 02/01/2019 PROCEDURE: CHEST RADIOGRAPH, 1 VIEW HISTORY: pneumonia COMPARISON: 01/24/2019 FINDINGS: LUNGS: Current lung volumes more shallow than before. New: Facial soft tissues obscure each lung apex especially left lung apex. No dense consolidation. Discoid atelectasis right mid lung zone. Bibasilar trace atelectatic changes suspect with hypoventilation. PLEURA: Small left pleural effusion. Probably increased since prior exam. No pneumothorax seen. CARDIOVASCULAR: There is presence of aortic atherosclerotic calcification on x-ray. Cardiomegaly. Pulmonary venous congestion increased since prior exam. OSSEOUS STRUCTURES: Thoracic spondylosis. Bilateral shoulder arthrosis. VISUALIZED UPPER ABDOMEN: Normal. OTHER FINDINGS: None. IMPRESSION: Current lung volumes more shallow than before. Hypoventilatory atelectatic changes at the left lung base suspect. Similar subsegmental discoid atelectasis and/or scarring right mid lung zone. Interval small left pleural effusion. Cardiomegaly similar. Pulmonary venous congestion believed slightly increased.
[2019-02-01] MEDS ORDERED: levoFLOXacin 500 MG TAB PO SCH (14:45)
[2019-02-01] MEDS: Insulin Detemir 100 Units/ml Inj SC SCH (22:03)
[2019-02-02] MEDS: Proshield Plus GEL TOP SCH ×2 (00:36→09:28)
[2019-02-02] MEDS: Insulin Lispro (humaLOG) 100 Units/ml Inj SC SCH ×2 (07:04→11:32)
[2019-02-02] MEDS: Acetylcysteine 20% Inhal Soln (4ml) INH SCH (07:51)
[2019-02-02] MEDS: Albuterol-Ipratrop 3 mg / 0.5 (3 ml) UD INH SCH ×2 (07:51→12:51)
[2019-02-02 07:58] VITALS: BP 157/73; PULSE 95; RESP 18; TEMP 89.9; O2SAT 96
[2019-02-02] MEDS: Enoxaparin 40 mg Syringe SC SCH (09:28)
[2019-02-02] MEDS: Cholecalciferol 1,000 INTLU TAB PO SCH (09:31)
[2019-02-02] MEDS: Megestrol Acetate 40 mg/ml Cup PO SCH (09:32)
[2019-02-02] MEDS: Aztreonam 1 GM in Sodium Chloride 0.9% 100 ML IV SCH (09:33)
--- NOTE | 2019-02-02 11:01 | CP.PCM.DIS ---
Provider - Provider Date of Admission: 01/28/19 10:52 Attending physician: Darin Kim MD Primary care physician: Cheli Samson MD Consults: 01/28/19 18:28 Wound Care [Nursing Referral for Wound Care] Routine Comment: Physician Instructions: Reason For Exam: sacral redness 01/28/19 18:29 Case Management Referral Routine Comment: Physician Instructions: Reason For Exam: Reason for Referral: Discharge Planning Time Spent in preparation of Discharge (in minutes): 25 Diagnosis - Discharge Diagnosis (1) Sepsis Status: Resolved Comment: completed 9 days of IV Aztreonam and Vancomycin (2) Pneumonia Status: Acute Comment: completed 9 days of IV Vancomycin and Aztreonam. continue Levaquin 750mg PO daily for 10 days (3) DM2 (diabetes mellitus, type 2) Status: Acute Comment: BS uncontrolled. continue Levemir 10 units SC HS (4) Hypertension Status: Chronic Comment: BP stable. on [place] [facility] Course - Lab Results Lab Results: Most Recent Lab Values WBC 11.6 K/uL (4.8-10.8) H 01/29/19 06:45 RBC 4.10 Mil/uL (3.80-5.20) 01/29/19 06:45 Hgb 10.8 g/dL (12.0-16.0) L 01/29/19 06:45 Hct 33.7 % (34.0-47.0) L 01/29/19 06:45 MCV 82.2 fl (81.0-99.0) 01/29/19 06:45 MCH 26.5 pg (27.0-31.0) L 01/29/19 06:45 MCHC 32.2 g/dL (33.0-37.0) L 01/29/19 06:45 RDW 17.6 % (11.5-14.5) H 01/29/19 06:45 Plt Count 187 K/uL (130-400) D 01/29/19 06:45 MPV 8.5 fl (7.2-11.7) 01/29/19 06:45 Neut % (Auto) 82.2 % (50.0-75.0) H 01/29/19 06:45 Lymph % (Auto) 9.9 % (20.0-40.0) L 01/29/19 06:45 [place] % (Auto) 3.9 % (0.0-10.0) 01/29/19 06:45 Eos % (Auto) 3.7 % (0.0-4.0) 01/29/19 06:45 Baso % (Auto) 0.3 % (0.0-2.0) 01/29/19 06:45 Neut # (Auto) 9.6 K/uL (1.8-7.0) H 01/29/19 06:45 Lymph # (Auto) 1.2 K/uL (1.0-4.3) 01/29/19 06:45 [place] # (Auto) 0.5 K/uL (0.0-0.8) 01/29/19 06:45 Eos # (Auto) 0.4 K/uL (0.0-0.7) 01/29/19 06:45 Baso # (Auto) 0.0 K/uL (0.0-0.2) 01/29/19 06:45 Neutrophils % (Manual) 81 % (42-75) H 01/29/19 06:45 Band Neutrophils % 1 % (0-2) 01/29/19 06:45 Lymphocytes % (Manual) 10 % (20-50) L 01/29/19 06:45 Monocytes % (Manual) 5 % (0-10) 01/29/19 06:45 Eosinophils % (Manual) 3 % (0-7) 01/29/19 06:45 Platelet Estimate Normal (NORMAL) 01/29/19 06:45 Plt Clumps, EDTA Present 01/29/19 06:45 Hypochromasia (manual) Slight 01/29/19 06:45 Anisocytosis (manual) Slight 01/29/19 06:45 Target Cells Slight 01/29/19 06:45 Tear Drop Cells Slight 01/29/19 06:45 Sodium 133 mmol/l (132-148) 01/29/19 06:45 Potassium 4.2 MMOL/L (3.6-5.0) 01/29/19 06:45 Chloride 101 mmol/L (98-107) 01/29/19 06:45 Carbon Dioxide 25 mmol/L (22-30) 01/29/19 06:45 Anion Gap 11 (10-20) 01/29/19 06:45 BUN 15 mg/dl (7-17) 01/29/19 06:45 Creatinine 0.4 mg/dl (0.7-1.2) L 01/29/19 06:45 Est GFR ( Amer) > 60 01/29/19 06:45 Est GFR (Non-Af Amer) > 60 01/29/19 06:45 POC Glucose (mg/dL) 264 mg/dL (65-110) H 02/02/19 10:37 Random Glucose 309 mg/dL (65-105) H 01/29/19 06:45 Calcium 8.3 mg/dL (8.4-10.2) L 01/29/19 06:45 - Hospital Course Hospital Course: 83 yo female with history of Dementia, DM2, HTN, HLD and Osteoporosis chronically bedbound admitted because of multifocal pneumonia and sepsis. She was started on Vancomycin and Aztreonam and was transferred to TCU for continuation of IV antibiotics and therapy. She did well and now is ready for discharge. She will continue taking Levaquin PO for another 10 days. Discharge Exam - Head Exam Head Exam: ATRAUMATIC, NORMOCEPHALIC - Eye Exam Eye Exam: absent: Scleral icterus - ENT Exam ENT Exam: Mucous Membranes Moist - Respiratory Exam Respiratory Exam: absent: Rhonchi, Wheezes, Respiratory Distress - Cardiovascular Exam Cardiovascular Exam: REGULAR RHYTHM, +S1, +S2 - GI/Abdominal Exam GI & Abdominal Exam: Soft. absent: Tenderness - Rectal Exam Rectal Exam: Deferred - Neurological Exam Neurological exam: Alert - Psychiatric Exam Psychiatric exam: Flat Affect - Skin Skin Exam: Dry, Intact Discharge Plan - Discharge Medications Prescriptions: Albuterol HFA [Ventolin HFA 90 mcg/actuation (8 g)] 1 puff IH Q4 PRN #1 puff PRN Reason: Shortness Of Breath Albuterol/Ipratropium [Duoneb 3 mg/0.5 mg (3 ml) UD] 3 ml INH RQ4 PRN #40 neb PRN Reason: Shortness Of Breath levoFLOXacin [Levaquin] 750 mg PO DAILY #10 tab Megestrol Acetate [Megace] 400 mg PO DAILY #14 cup - Follow Up Plan Condition: GOOD Disposition: HOME/ ROUTINE Instructions: Pneumonia, Adult (DC) Referrals: Cheli Samson MD [Primary Care Provider] -
== END 2019-02-02 15:00 | disposition home health service (06) | DRG 871 ==
LOC: H.TCU 01-28 10:52
PROVIDERS: ADMIT Hospitalist; ATTEND Hospitalist
PROC: 3E03329 Introduction of Other Anti-infective into Peripheral Vein, Percutaneous Approach (ICD-10-PCS; principal; 2019-01-28)
PROC: F07Z9FZ Gait Training/Functional Ambulation Treatment using Assistive, Adaptive, Supportive or Protective Equipment (ICD-10-PCS; 2019-01-28)
PROC: F08Z4FZ Home Management Treatment using Assistive, Adaptive, Supportive or Protective Equipment (ICD-10-PCS; 2019-01-28)
DX: A41.9 Sepsis, unspecified organism (principal); J18.9 Pneumonia, unspecified organism; I11.0 Hypertensive heart disease with heart failure; I50.9 Heart failure, unspecified; F03.90 Unspecified dementia, unspecified severity, without behavioral disturbance, psychotic disturbance, mood disturbance, and anxiety; Z51.5 Encounter for palliative care; M81.0 Age-related osteoporosis without current pathological fracture; E11.65 Type 2 diabetes mellitus with hyperglycemia; E78.5 Hyperlipidemia, unspecified; E78.00 Pure hypercholesterolemia, unspecified; F41.9 Anxiety disorder, unspecified; K59.00 Constipation, unspecified; R32 Unspecified urinary incontinence; Z93.3 Colostomy status; Z74.01 Bed confinement status; Z88.0 Allergy status to penicillin

== ENCOUNTER 2019-02-20 13:36 | Inpatient (IN) | payer MEDICARE, MEDICAID ==
[2019-02-20 13:41] VITALS: BMI 19.8
[2019-02-20] MEDS ORDERED: Sodium Chloride 0.9% 1,000 ML IV STA (14:38)
[2019-02-20 15:58] LABS: BASO # 0.1 K/uL (0.0-0.2); BASO % 0.4 % (0.0-2.0); EOS # 0.7 K/uL (0.0-0.7); EOS % 4.8 % (0.0-4.0); HEMOGLOBIN 11.6 g/dL (12.0-16.0); LYMPH # 3.1 K/uL (1.0-4.3); LYMPH % 22.2 % (20.0-40.0); MEAN CELL VOLUME 78.9 fl (81.0-99.0); MEAN CORPUSCULAR HEMOGLOBIN 25.9 pg (27.0-31.0); MEAN CORPUSCULAR HGB CONC 32.9 g/dL (33.0-37.0); MEAN PLATELET VOLUME 8.3 fl (7.2-11.7); MONO # 0.8 K/uL (0.0-0.8); MONO % 5.6 % (0.0-10.0); NEUT # 9.3 K/uL (1.8-7.0); NRBC % 0.2 % (0.0-0.0); PLATELET COUNT 649 K/uL (130-400); RBC 4.47 Mil/uL (3.80-5.20); RED CELL DISTRIBUTION WIDTH 19.6 % (11.5-14.5); WHITE BLOOD COUNT 13.9 K/uL (4.8-10.8)
--- NOTE | 2019-02-20 16:02 | ED PDOC ---
HPI: General Adult Time Seen by Provider: 02/20/19 14:00 Chief Complaint (Nursing): Medical Clearance Chief Complaint (Provider): Low Blood Pressure History Per: Family (daughter) History/Exam Limitations: clinical condition (dementia) Onset/Duration Of Symptoms: Hrs Additional Complaint(s): 83 year old female with dementia, DM, anemia, HTN, CHF accompanied by daughter to ED with low blood pressure. She lives with her and earlier today patient's low blood pressure was noticed and EMS brought her to the hospital. Patient denies fever, cough, congestion, and other symptoms. PMD: none provided Past Medical History Reviewed: Historical Data, Nursing Documentation, Vital Signs Vital Signs: Last Vital Signs Temp 98.5 F 02/20/19 13:40 Pulse 83 02/20/19 15:55 Resp 20 02/20/19 15:55 BP 119/68 02/20/19 15:55 Pulse Ox 98 02/20/19 15:55 Primary Care Provider: FAMILY PROVIDER,NO - Medical History PMH: CHF, Dementia, Diabetes, Fractures, HTN, Hypercholesterolemia, Osteoporosis, Pneumonia Denies: HIV, Chronic Kidney Disease - Surgical History Surgical History: Cholecystectomy - Family History Family History: States: Unknown Family Hx - Social History Current smoker - smoking cessation education provided: No Alcohol: None Drugs: Denies - Home Medications Home Medications: Ambulatory Orders Medication Instructions Recorded Isosorbide Mononitrate ER [Imdur 30 mg PO QPM 12/06/15 ER] Aspirin [Ecotrin] 81 mg PO QPM 06/01/17 Albuterol/Ipratropium [Duoneb 3 3 ml INH RQ4 PRN #40 neb 02/02/19 mg/0.5 mg (3 ml) UD] Acetaminophen [Tylenol Extra 500 mg PO Q6 PRN 02/20/19 Strength] Bisacodyl [Dulcolax] 5 mg PO BID 02/20/19 Carvedilol [Coreg] 3.125 mg PO DAILY PRN 02/20/19 Cyanocobalamin [Vitamin B12 100 100 mcg PO DAILY 02/20/19 mcg Tab] Furosemide [Lasix] 10 mg PO DAILY 02/20/19 Megestrol Acetate [Megace] 400 mg PO ACL 02/20/19 SITagliptin [Januvia] 100 mg PO DAILY 02/20/19 metFORMIN [glucOPHAGE] 500 mg PO BID 02/20/19 traZODone [Desyrel] 50 mg PO HS 02/20/19 - Allergies Allergies/Adverse Reactions: Allergies Allergy/AdvReac Type Severity Reaction Status Date / Time ampicillin Allergy RASH Verified 02/20/19 13:41 Penicillins Allergy RASH Verified 02/20/19 13:41 Review of Systems ROS Statement: Except As Marked, All Systems Reviewed And Found Negative Constitutional: Negative for: Fever ENT: Negative for: Nose Congestion Cardiovascular: Positive for: Other (low blood pressure) Respiratory: Negative for: Cough Physical Exam - Reviewed Nursing Documentation Reviewed: Yes Vital Signs Reviewed: Yes - Physical Exam Appears: Positive for: No Acute Distress Head Exam: Positive for: ATRAUMATIC, NORMOCEPHALIC Skin: Positive for: Normal Color, Warm, Dry Eye Exam: Positive for: EOMI, Normal appearance, PERRL ENT: Positive for: Normal ENT Inspection Neck: Positive for: Normal, Supple Cardiovascular/Chest: Positive for: Regular Rate, Rhythm Respiratory: Positive for: Normal Breath Sounds. Negative for: Respiratory Distress Gastrointestinal/Abdominal: Positive for: Normal Exam, Soft, Other (pt in diaper) Back: Positive for: Normal Inspection. Negative for: L CVA Tenderness, R CVA Te nderness, Vertebral Tenderness Extremity: Positive for: Normal ROM, Other (skin tear on left anterior leg , no active bleeding, neurovascular intact (2+ DP), cap refill less than 2 sec.). Negative for: Pedal Edema, Deformity Neurological/Psych: Positive for: Other (aphasia, non-communicative, reactive to pain, but not verbal. ) - Laboratory Results Result Diagrams: 02/21/19 07:45 02/21/19 07:45 - ECG O2 Sat by Pulse Oximetry: 98 (NC) Pulse Ox Interpretation: Normal Medical Decision Making Medical Decision Making: Time: 1557 Initial Impression: pt brought in for borderline blood pressure, which has now been improved. hisotry of decrease po intake rule - will rule out dehydration/electrolyte abnormality pt currently afebrile, normal vitals. Initial Plan: -- 1630: Patient blood pressure improved with IV fluids. 1644 FINDINGS: LUNGS: No active pulmonary disease. PLEURA: No significant pleural effusion identified, no pneumothorax apparent. CARDIOVASCULAR: No radiographic findings to suggest acute or significant cardiovascular disease. Atherosclerotic calcifications identified primarily aortic arch. OSSEOUS STRUCTURES: No significant abnormalities. VISUALIZED UPPER ABDOMEN: Normal. OTHER FINDINGS: None. IMPRESSION: No active disease. Improved aeration of the lungs compared to the prior study. 1809 labs reviewed elevated wbc 13 pt without fever or tachycardia Elevated BUN indicates that patient is likely dehydrated so she will be admitted for dehydration and iv f started. bp currently stable. discussed case with Dr Hector hospitalist who covers pt. she will admit. dr hector is informed that we are still awaiting urine cath specimen (pt needs to be cathetarized) but admission placed in interim. Patient's urine will be checked via straight catheter to rule out UTI. admission order placed in interim -DR Hector/resident Dr Yao aware to follow up urinalysis. ---- Scribe Attestation: Documented by Jeff Willett acting as a scribe for Kareem Dean MD. Provider Scribe Attestation: All medical record entries made by the Scribe were at my direction and personally dictated by me. I have reviewed the chart and agree that the record accurately reflects my personal performance of the history, physical exam, medical decision making, and the department course for this patient. I have also personally directed, reviewed, and agree with the discharge instructions and disposition. Disposition - Clinical Impression Clinical Impression: Hypotension, Decreased oral intake - Patient ED Disposition Is Patient to be Admitted: Yes Counseled Patient/Family Regarding: Studies Performed, Diagnosis - Disposition Disposition Time: 18:09 Condition: STABLE
--- NOTE | 2019-02-20 16:11 | RAD ---
Date of service: 02/20/2019 HISTORY: Low blood pressure. COMPARISON: 02/01/2019. FINDINGS: LUNGS: No active pulmonary disease. PLEURA: No significant pleural effusion identified, no pneumothorax apparent. CARDIOVASCULAR: No radiographic findings to suggest acute or significant cardiovascular disease. Atherosclerotic calcifications identified primarily aortic arch. OSSEOUS STRUCTURES: No significant abnormalities. VISUALIZED UPPER ABDOMEN: Normal. OTHER FINDINGS: None. IMPRESSION: No active disease. Improved aeration of the lungs compared to the prior study.
[2019-02-20 17:06] LABS: ALB/GLOB RATIO 0.9 (1.0-2.1); ALBUMIN 3.1 g/dL (3.5-5.0); ALT/SGPT 17 U/L (9-52); AST/SGOT 17 U/L (14-36); BLOOD UREA NITROGEN 24 mg/dl (7-17); CALCIUM 8.8 mg/dL (8.4-10.2); GFR NON-AFRICAN AMERICAN > 60
[2019-02-20 17:11] LABS: EOSINOPHIL 5 % (0-7); LYMPHOCYTE 34 % (20-50); MONOCYTE 7 % (0-10); MYELOCYTE 7 % (0-0); NEUTROPHIL 47 % (42-75); TOTAL CELLS COUNTED 100
[2019-02-20 17:12] LABS: PLATELET ESTIMATE INCREASED (NORMAL)
[2019-02-20 17:13] LABS: ANISOCYTOSIS SLIGHT
[2019-02-20 18:49] LABS: URINE AMORPHOUS SEDIMENT RARE /ul (<OCC); URINE BACTERIA OCC (<OCC); URINE BILIRUBIN NEGATIVE (NEGATIVE); URINE BLOOD SMALL (NEGATIVE); URINE CLARITY TURBID (Clear); URINE COLOR YELLOW (YELLOW); URINE GLUCOSE (UA) NEG (NEGATIVE); URINE LEUKOCYTE ESTERASE LARGE Leu/uL (Negative); URINE PROTEIN NEGATIVE (NEGATIVE); URINE UROBILINOGEN 0.2-1.0 mg/dL (0.2-1.0); WBC CLUMPS MANY /hpf
[2019-02-20 19:27] LABS: URINE HYALINE CAST 0-2 /hpf (0-2)
[2019-02-20 19:29] LABS: ABG ALLEN TEST YES; ARTERIAL BLOOD GAS HCO3 25.1 mmol/L (21-28); ARTERIAL BLOOD GAS O2 SAT 99.3 % (95-98); ARTERIAL BLOOD GAS PCO2 33 mm/Hg (35-45); ARTERIAL BLOOD GAS PH 7.46 (7.35-7.45); ARTERIAL BLOOD GAS PO2 84 mm/Hg (80-100); ARTERIAL BLOOD GAS TCO2 24.5 mmol/L (22-28)
[2019-02-20] MEDS ORDERED: Albuterol-Ipratrop 3 mg / 0.5 (3 ml) UD INH PRN (19:45)
--- NOTE | 2019-02-20 19:52 | CP.PCM.HP ---
<Lamine Yao - Last Filed: 02/21/19 00:01> History of Present Illness - History of Present Illness History of Present Illness: 83 yo F with pmhx of DM, htn, CHF, dementia, DLD, osteoporosis and currently bedbound presents with daughter and for hypotension and progressive decrease in PO diet. Per daughter; visiting home nurse was unable to take blood pressure. Pt was noted to have decreased po diet both solids and liquids. Family reports decreased stools and urinary output. Family denies recent fever, sick contacts, vomiting, hematuria, hematochezia. Of note: daughter reports pt was recently admitted 01/28/2019: sepsis and pneumonia PMD: [place]. [place] [facility] [place] pmhx: DM, htn, CHF, dementia, DLD, osteoporosis, bedbound Famhx: none Soc: Denies smoking, alcohol, illicit drugs; lives with Rx: reconciled Allergy to penicillins Present on Admission - Present on Admission Any Indicators Present on Admission: Yes History of Uncontrolled Diabetes: Yes Review of Systems - Constitutional Constitutional: As Per HPI - Cardiovascular Cardiovascular: absent: Chest Pain - Respiratory Respiratory: absent: Cough, Dyspnea - Gastrointestinal Gastrointestinal: absent: Abdominal Pain - Genitourinary Genitourinary: absent: Change in Urinary Stream Past Patient History - Infectious Disease Hx of Infectious Diseases: None - Past Medical History & Family History Past Medical History?: Yes - Past Social History Smoking Status: Never Smoked Alcohol: None Drugs: Denies Home Situation {Lives}: With Family () - CARDIAC Hx Congestive Heart Failure: Yes Hx Hypercholesterolemia: Yes Hx Hypertension: Yes - PULMONARY Hx Pneumonia: Yes - NEUROLOGICAL Hx Dementia: Yes - HEENT Hx HEENT Problems: No - RENAL Hx Chronic Kidney Disease: No - ENDOCRINE/METABOLIC Hx Endocrine Disorders: Yes (DM) Hx Diabetes Mellitus Type 2: Yes - HEMATOLOGICAL/ONCOLOGICAL Hx Human Immunodeficiency Virus (HIV): No - INTEGUMENTARY Hx Dermatological Problems: No - MUSCULOSKELETAL/RHEUMATOLOGICAL Hx Fractures: Yes Hx Osteoporosis: Yes - GASTROINTESTINAL Hx Gastrointestinal Disorders: Yes Hx Colostomy: Yes Other/Comment: hx of bowel obstruction - GENITOURINARY/GYNECOLOGICAL Hx Genitourinary Disorders: Yes Hx Incontinence: Yes - PSYCHIATRIC Hx Psychophysiologic Disorder: No Hx Substance Use: No - SURGICAL HISTORY Hx Cholecystectomy: Yes - ANESTHESIA Hx Anesthesia: Yes Hx Anesthesia Reactions: No Hx Malignant Hyperthermia: No Meds Allergies/Adverse Reactions: Allergies Allergy/AdvReac Type Severity Reaction Status Date / Time ampicillin Allergy RASH Verified 02/20/19 13:41 Penicillins Allergy RASH Verified 02/20/19 13:41 Physical Exam - Constitutional Appears: No Acute Distress - Eye Exam Eye Exam: EOMI - ENT Exam ENT Exam: Mucous Membranes Moist - Respiratory Exam Respiratory Exam: Clear to Auscultation Bilateral. absent: Wheezes - Cardiovascular Exam Cardiovascular Exam: REGULAR RHYTHM, +S1, +S2 - GI/Abdominal Exam GI & Abdominal Exam: Normal Bowel Sounds, Soft. absent: Tenderness - Extremities Exam Extremities exam: Negative for: calf tenderness Additional comments: bilateral lower extremity bruising - Neurological Exam Neurological exam: Alert Results - Vital Signs Recent Vital Signs: Last Vital Signs Temp 98.5 F 02/20/19 13:40 Pulse 81 02/20/19 19:00 Resp 20 02/20/19 19:00 BP 121/64 02/20/19 19:00 Pulse Ox 95 02/20/19 19:00 - Labs Result Diagrams: 02/20/19 15:40 02/20/19 16:46 Labs: Laboratory Results - last 24 hr 02/20/19 02/20/19 02/20/19 14:26 15:40 16:46 WBC 13.9 H RBC 4.47 Hgb 11.6 L Hct 35.3 MCV 78.9 L D MCH 25.9 L MCHC 32.9 L RDW 19.6 H Plt Count 649 H D MPV 8.3 Neut % (Auto) 67.0 Lymph % (Auto) 22.2 [place] % (Auto) 5.6 Eos % (Auto) 4.8 H Baso % (Auto) 0.4 Neut # (Auto) 9.3 H Lymph # (Auto) 3.1 [place] # (Auto) 0.8 Eos # (Auto) 0.7 Baso # (Auto) 0.1 Neutrophils % (Manual) 47 Lymphocytes % (Manual) 34 Monocytes % (Manual) 7 Eosinophils % (Manual) 5 Myelocytes % 7 H Platelet Estimate Increased H Anisocytosis (manual) Slight Macrocytosis (manual) Slight pCO2 pO2 HCO3 ABG pH ABG Total CO2 ABG O2 Saturation ABG Base Excess Thony Test ABG Potassium A-a O2 Difference Glucose Lactate FiO2 Sodium 132 Potassium 4.4 Chloride 97 L Carbon Dioxide 24 Anion Gap 15 BUN 24 H Creatinine 0.7 Est GFR ( Amer) > 60 Est GFR (Non-Af Amer) > 60 POC Glucose (mg/dL) 160 H Random Glucose 132 H Calcium 8.8 Total Bilirubin 0.3 AST 17 ALT 17 Alkaline Phosphatase 85 Total Protein 6.5 Albumin 3.1 L Globulin 3.4 Albumin/Globulin Ratio 0.9 L Arterial Blood Potassium Urine Color Urine Clarity Urine pH Ur Specific [place] Urine Protein Urine Glucose (UA) Urine Ketones Urine Blood Urine Nitrate Urine Bilirubin Urine Urobilinogen Ur Leukocyte Esterase Urine RBC (Auto) Urine WBC Clumps (Auto) Urine Microscopic WBC Amorphous Sediment Urine Bacteria Hyaline Casts Urine Yeast (Budding) 02/20/19 02/20/19 18:08 18:26 WBC RBC Hgb Hct MCV MCH MCHC RDW Plt Count MPV Neut % (Auto) Lymph % (Auto) [place] % (Auto) Eos % (Auto) Baso % (Auto) Neut # (Auto) Lymph # (Auto) [place] # (Auto) Eos # (Auto) Baso # (Auto) Neutrophils % (Manual) Lymphocytes % (Manual) Monocytes % (Manual) Eosinophils % (Manual) Myelocytes % Platelet Estimate Anisocytosis (manual) Macrocytosis (manual) pCO2 33 L pO2 84 HCO3 25.1 ABG pH 7.46 H ABG Total CO2 24.5 ABG O2 Saturation 99.3 H ABG Base Excess 0.3 Htony Test Yes ABG Potassium 3.7 A-a O2 Difference 24.0 Glucose 116 H Lactate 0.7 FiO2 21.0 Sodium 127.0 L Potassium Chloride 99.0 Carbon Dioxide Anion Gap BUN Creatinine Est GFR ( Amer) Est GFR (Non-Af Amer) POC Glucose (mg/dL) Random Glucose Calcium Total Bilirubin AST ALT Alkaline Phosphatase Total Protein Albumin Globulin Albumin/Globulin Ratio Arterial Blood Potassium 3.7 Urine Color Yellow Urine Clarity Turbid Urine pH 6.0 Ur Specific [place] 1.015 Urine Protein Negative Urine Glucose (UA) Neg Urine Ketones Negative Urine Blood Small Urine Nitrate Negative Urine Bilirubin Negative Urine Urobilinogen 0.2-1.0 Ur Leukocyte Esterase Large Urine RBC (Auto) 15 H Urine WBC Clumps (Auto) Many H Urine Microscopic WBC 884 H Amorphous Sediment Rare H Urine Bacteria Occ H Hyaline Casts 0-2 Urine Yeast (Budding) Few H Assessment & Plan - Assessment and Plan (Free Text) Assessment: 83 yo F with pmhx of DM, htn, CHF, dementia, DLD, osteoporosis and currently bedbound presents with daughter and for hypotension and progressive decrease in PO diet. Plan: Hypotension resolved; 121/64 Hold antihypertensives and lasix Pt on gentle hydration: D5W 1/2 NS k 20 meq at 100 mls/hr Continue to monitor vitals f/u am labs DM Accuchecks hypoglycemia protocol ICS low dose c/w januvia Decreased PO intake Dietition consulted dysphagia: pureed diet c/w megasce for appetite stimulant Pt with bilateral wounds Wound care nursing DVT prophylaxis SCDs <Dee Vera - Last Filed: 02/22/19 19:24> Results - Vital Signs Recent Vital Signs: Last Vital Signs Temp 98.8 F 02/22/19 15:56 Pulse 64 02/22/19 15:56 Resp 20 02/22/19 15:56 BP 113/74 02/22/19 15:56 Pulse Ox 99 02/22/19 15:56 - Labs Result Diagrams: 02/22/19 06:35 02/22/19 06:35 Labs: Laboratory Results - last 24 hr 02/21/19 02/22/19 02/22/19 21:22 05:42 06:35 WBC 12.8 H RBC 4.14 Hgb 10.8 L Hct 33.8 L MCV 81.6 MCH 26.2 L MCHC 32.0 L RDW 18.2 H Plt Count 515 H D Sodium Potassium Chloride Carbon Dioxide Anion Gap BUN Creatinine Est GFR ( Amer) Est GFR (Non-Af Amer) POC Glucose (mg/dL) 158 H 267 H Random Glucose Calcium Total Bilirubin AST ALT Alkaline Phosphatase Total Protein Albumin Globulin Albumin/Globulin Ratio 02/22/19 02/22/19 02/22/19 06:35 11:24 15:43 WBC RBC Hgb Hct MCV MCH MCHC RDW Plt Count Sodium 130 L Potassium 4.6 Chloride 100 Carbon Dioxide 19 L Anion Gap 16 BUN 8 Creatinine 0.4 L Est GFR ( Amer) > 60 Est GFR (Non-Af Amer) > 60 POC Glucose (mg/dL) 277 H 320 H Random Glucose 250 H Calcium 7.9 L Total Bilirubin 0.6 AST 30 ALT 19 Alkaline Phosphatase 66 Total Protein 6.4 Albumin 2.9 L Globulin 3.4 Albumin/Globulin Ratio 0.8 L Attending/Attestation - Attestation I have personally seen and examined this patient.: Yes I have fully participated in the care of the patient.: Yes I have reviewed all pertinent clinical information: Yes Notes (Text): Agree with findings and plan as above.
[2019-02-20] MEDS ORDERED: Dextrose 50% SYRINGE Inj (50 ml) IV PRN (21:59)
[2019-02-20] MEDS ORDERED: Glucagon Recombinant 1 mg Inj IM PRN (21:59)
[2019-02-20] MEDS: Insulin Regular 100 units/ml SC SCH (22:58)
[2019-02-21] MEDS: Potassium Ch 20mEq in D5-1/2NS 1,000 ML IV SCH ×3 (00:42→21:29)
[2019-02-21] MEDS ORDERED: Ciprofloxacin 400mg/200ml D5W 400 MG/200 ML BAG IVPB STA (06:58)
[2019-02-21 07:57] LABS: HEMOGLOBIN 10.4 g/dL (12.0-16.0); MEAN CELL VOLUME 79.9 fl (81.0-99.0); MEAN CORPUSCULAR HEMOGLOBIN 25.9 pg (27.0-31.0); MEAN CORPUSCULAR HGB CONC 32.5 g/dL (33.0-37.0); RED CELL DISTRIBUTION WIDTH 18.1 % (11.5-14.5); WHITE BLOOD COUNT 10.9 K/uL (4.8-10.8)
[2019-02-21] MEDS: Insulin Regular 100 units/ml SC SCH ×5 (08:38→21:56)
[2019-02-21] MEDS: Bisacodyl 5mg EC Tab PO SCH ×2 (08:39→17:53)
[2019-02-21 08:40] LABS: BLOOD UREA NITROGEN 16 mg/dl (7-17); CALCIUM 8.1 mg/dL (8.4-10.2); GFR NON-AFRICAN AMERICAN > 60
[2019-02-21] MEDS ORDERED: Megestrol Acetate 40 mg/ml Cup PO SCH (09:00)
--- NOTE | 2019-02-21 09:52 | CARD ---
APPROVED REPORT Date of service: 02/20/2019 EKG Measurement Heart [id number] <Conclusion> Normal sinus rhythm with premature atrial complexes Incomplete LBBB ST & T wave abnormality, consider lateral ischemia Abnormal ECG
--- NOTE | 2019-02-21 12:29 | CP.PCM.PN ---
<Carmen Maynard - Last Filed: 02/21/19 12:37> Subjective - Date & Time of Evaluation Date of Evaluation: 02/21/19 Time of Evaluation: 12:28 - Subjective Subjective: Pt seen bedside, examination incomplete due to pt uncooperative/dementia. Vitally stable. Objective - Vital Signs/Intake and Output Vital Signs (last 24 hours): Temp Pulse Resp BP Pulse Ox 98.3 F 68 20 142/76 98 02/21/19 08:05 02/21/19 08:05 02/21/19 08:02/21/19 08:02/21/19 12:08 - Medications Medications: Current Medications Albuterol/Ipratropium (Duoneb 3 Mg/0.5 Mg (3 Ml) Ud) 3 ml INH RQ4 PRN PRN Reason: Shortness of Breath Aspirin (Ecotrin) 81 mg PO QPM [facility] Bisacodyl (Dulcolax) 5 mg PO BID [facility] Last Admin: 02/21/19 08:39 Dose: 5 mg Carvedilol (Coreg) 3.125 mg PO DAILY PRN PRN Reason: Blood pressure >140 Dextrose (Dextrose 50% Inj) 0 ml IV STAT PRN; Protocol PRN Reason: Hypoglycemia Protocol Dextrose (Glutose 15) 0 gm PO ONCE PRN; Protocol PRN Reason: Hypoglycemia Protocol Furosemide (Lasix) 10 mg PO DAILY [facility] Glucagon (Glucagen Diagnostic Kit) 0 mg IM STAT PRN; Protocol PRN Reason: Hypoglycemia Protocol Home Med (Cyanocobalamin [Vitamin B12 100 Mcg Tab]) 100 mcg PO DAILY [facility] Potassium Chloride/Dextrose/Sod Cl (Potassium Chl 20 Meq In D5-1/2ns) 1,000 mls @ 100 mls/hr IV .Q10H [facility] Stop: 02/22/19 00:06 Last Admin: 02/21/19 09:33 Dose: 100 mls/hr Ceftriaxone Sodium 1 gm/ (Sodium Chloride) 100 mls @ 100 mls/hr IVPB DAILY [facility]; Protocol Insulin Human Regular (Humulin R) 0 units SC ACHS [facility]; Protocol Last Admin: 02/21/19 08:51 Dose: 1 unit Isosorbide Mononitrate (Imdur Er) 30 mg PO QPM [facility] Megestrol Acetate (Megace) 400 mg PO ACL [facility] Sitagliptin Phosphate (Januvia) 100 mg PO DAILY [facility] Last Admin: 02/21/19 08:39 Dose: 100 mg Trazodone HCl (Desyrel) 50 mg PO HS [facility] Last Admin: 02/20/19 22:56 Dose: Not Given - Labs Labs: 02/21/19 07:45 02/21/19 07:45 - Constitutional Appears: No Acute Distress - Head Exam Head Exam: NORMAL INSPECTION - Eye Exam Eye Exam: Normal appearance - ENT Exam ENT Exam: Mucous Membranes Moist - Respiratory Exam Respiratory Exam: NORMAL BREATHING PATTERN - Cardiovascular Exam Cardiovascular Exam: REGULAR RHYTHM - Neurological Exam Neurological Exam: Alert, Awake - Psychiatric Exam Psychiatric exam: Agitated - Skin Skin Exam: Normal Color Assessment and Plan - Assessment and Plan (Free Text) Assessment: 83 yo F with pmhx of DM, htn, CHF, dementia, DLD, osteoporosis and currently bedbound presents with daughter and for hypotension and progressive decrease in PO diet. Plan: UTI -UA; large leuk esterase, WBC, occ bacteria -Ceftriaxone 1gm daily -f/u urine C&S Hypotension resolved; 121/64 Hold antihypertensives and lasix Pt on gentle hydration: D5W 1/2 NS k 20 meq at 100 mls/hr Continue to monitor vitals Dementia -chronic DM Accuchecks hypoglycemia protocol ICS low dose c/w januvia Decreased PO intake Dietition consulted dysphagia: pureed diet c/w megasce for appetite stimulant Pt with bilateral wounds Wound care nursing DVT prophylaxis SCDs <Dee Vera - Last Filed: 02/22/19 19:19> Objective - Vital Signs/Intake and Output Vital Signs (last 24 hours): Temp Pulse Resp BP Pulse Ox 98.8 F 64 20 113/74 99 02/22/19 15:56 02/22/19 15:56 02/22/19 15:56 02/22/19 15:56 02/22/19 15:56 - Medications Medications: Current Medications Acetaminophen (Tylenol 325mg Tab) 650 mg PO Q6 PRN PRN Reason: Pain, Mild (1-3) Last Admin: 02/21/19 20:36 Dose: 650 mg Albuterol/Ipratropium (Duoneb 3 Mg/0.5 Mg (3 Ml) Ud) 3 ml INH RQ4 PRN PRN Reason: Shortness of Breath Aspirin (Ecotrin) 81 mg PO QPM [facility] Last Admin: 02/22/19 17:01 Dose: 81 mg Bisacodyl (Dulcolax) 5 mg PO BID [facility] Last Admin: 02/22/19 16:57 Dose: 5 mg Carvedilol (Coreg) 3.125 mg PO DAILY PRN PRN Reason: Blood pressure >140 Cyanocobalamin (Vitamin B-12) 250 mcg PO DAILY [facility] Dextrose (Dextrose 50% Inj) 0 ml IV STAT PRN; Protocol PRN Reason: Hypoglycemia Protocol Dextrose (Glutose 15) 0 gm PO ONCE PRN; Protocol PRN Reason: Hypoglycemia Protocol Fluconazole (Diflucan) 100 mg PO DAILY [facility]; Protocol Last Admin: 02/22/19 13:08 Dose: 100 mg Furosemide (Lasix) 10 mg PO DAILY [facility] Glucagon (Glucagen Diagnostic Kit) 0 mg IM STAT PRN; Protocol PRN Reason: Hypoglycemia Protocol Ceftriaxone Sodium 1 gm/ (Sodium Chloride) 100 mls @ 100 mls/hr IVPB DAILY [facility]; Protocol Last Admin: 02/22/19 09:20 Dose: 100 mls/hr Sodium Chloride (Sodium Chloride 0.9%) 1,000 mls @ 100 mls/hr IV .Q10H [facility] Stop: 02/23/19 10:58 Last Admin: 02/22/19 11:05 Dose: 100 mls/hr Insulin Human Regular (Humulin R) 0 units SC ACHS [facility]; Protocol Last Admin: 02/22/19 16:58 Dose: 4 unit Isosorbide Mononitrate (Imdur Er) 30 mg PO QPM [facility] Megestrol Acetate (Megace) 400 mg PO ACL [facility] Last Admin: 02/22/19 13:03 Dose: 400 mg Sitagliptin Phosphate (Januvia) 100 mg PO DAILY [facility] Last Admin: 02/22/19 09:21 Dose: 100 mg Trazodone HCl (Desyrel) 50 mg PO HS [facility] Last Admin: 02/21/19 21:33 Dose: Not Given - Labs Labs: 02/22/19 06:35 02/22/19 06:35 Attending/Attestation - Attestation I have personally seen and examined this patient.: Yes I have fully participated in the care of the patient.: Yes I have reviewed all pertinent clinical information, including history, physical exam and plan: Yes Notes (Text): Agree with findings and plan as above.
--- NOTE | 2019-02-21 16:25 | CP.PCM.DIS ---
Provider - Provider Date of Admission: 02/21/19 12:00 Attending physician: Dee Vera DO Consults: 02/20/19 23:50 Case Management Referral Routine Comment: Physician Instructions: Reason For Exam: Reason for Referral: Discharge Planning Nursing Referral for Wound Care Routine Comment: Physician Instructions: Reason For Exam: angela scale protocol,healed sacral ulcer Time Spent in preparation of Discharge (in minutes): 20 Hospital Course - Lab Results Lab Results: Most Recent Lab Values WBC 10.9 K/uL (4.8-10.8) H 02/21/19 07:45 RBC 4.00 Mil/uL (3.80-5.20) 02/21/19 07:45 Hgb 10.4 g/dL (12.0-16.0) L 02/21/19 07:45 Hct 31.9 % (34.0-47.0) L 02/21/19 07:45 MCV 79.9 fl (81.0-99.0) L 02/21/19 07:45 MCH 25.9 pg (27.0-31.0) L 02/21/19 07:45 MCHC 32.5 g/dL (33.0-37.0) L 02/21/19 07:45 RDW 18.1 % (11.5-14.5) H 02/21/19 07:45 Plt Count 618 K/uL (130-400) H 02/21/19 07:45 MPV 8.3 fl (7.2-11.7) 02/20/19 15:40 Neut % (Auto) 67.0 % (50.0-75.0) 02/20/19 15:40 Lymph % (Auto) 22.2 % (20.0-40.0) 02/20/19 15:40 Cache % (Auto) 5.6 % (0.0-10.0) 02/20/19 15:40 Eos % (Auto) 4.8 % (0.0-4.0) H 02/20/19 15:40 Baso % (Auto) 0.4 % (0.0-2.0) 02/20/19 15:40 Neut # (Auto) 9.3 K/uL (1.8-7.0) H 02/20/19 15:40 Lymph # (Auto) 3.1 K/uL (1.0-4.3) 02/20/19 15:40 [place] # (Auto) 0.8 K/uL (0.0-0.8) 02/20/19 15:40 Eos # (Auto) 0.7 K/uL (0.0-0.7) 02/20/19 15:40 Baso # (Auto) 0.1 K/uL (0.0-0.2) 02/20/19 15:40 Neutrophils % (Manual) 47 % (42-75) 02/20/19 15:40 Lymphocytes % (Manual) 34 % (20-50) 02/20/19 15:40 Monocytes % (Manual) 7 % (0-10) 02/20/19 15:40 Eosinophils % (Manual) 5 % (0-7) 02/20/19 15:40 Myelocytes % 7 % (0-0) H 02/20/19 15:40 Platelet Estimate Increased (NORMAL) H 02/20/19 15:40 Anisocytosis (manual) Slight 02/20/19 15:40 Macrocytosis (manual) Slight 02/20/19 15:40 pCO2 33 mm/Hg (35-45) L 02/20/19 18:26 pO2 84 mm/Hg (80-100) 02/20/19 18:26 HCO3 25.1 mmol/L (21-28) 02/20/19 18:26 ABG pH 7.46 (7.35-7.45) H 02/20/19 18:26 ABG Total CO2 24.5 mmol/L (22-28) 02/20/19 18:26 ABG O2 Saturation 99.3 % (95-98) H 02/20/19 18:26 ABG Base Excess 0.3 mmol/L (-2.0-3.0) 02/20/19 18:26 Thony Test Yes 02/20/19 18:26 ABG Potassium 3.7 mmol/L (3.6-5.2) 02/20/19 18:26 A-a O2 Difference 24.0 mm/Hg 02/20/19 18:26 Sodium 127.0 mmol/L (132-148) L 02/20/19 18:26 Chloride 99.0 mmol/L (98-107) 02/20/19 18:26 Glucose 116 mg/dL (65-105) H 02/20/19 18:26 Lactate 0.7 mmol/L (0.7-2.1) 02/20/19 18:26 FiO2 21.0 % 02/20/19 18:26 Sodium 129 mmol/l (132-148) L 02/21/19 07:45 Potassium 4.1 MMOL/L (3.6-5.0) 02/21/19 07:45 Chloride 96 mmol/L (98-107) L 02/21/19 07:45 Carbon Dioxide 24 mmol/L (22-30) 02/21/19 07:45 Anion Gap 13 (10-20) 02/21/19 07:45 BUN 16 mg/dl (7-17) 02/21/19 07:45 Creatinine 0.6 mg/dl (0.7-1.2) L 02/21/19 07:45 Est GFR ( Amer) > 60 02/21/19 07:45 Est GFR (Non-Af Amer) > 60 02/21/19 07:45 POC Glucose (mg/dL) 296 mg/dL (65-110) H 02/21/19 16:07 Random Glucose 236 mg/dL (65-105) H 02/21/19 07:45 Calcium 8.1 mg/dL (8.4-10.2) L 02/21/19 07:45 Total Bilirubin 0.3 mg/dl (0.2-1.3) 02/20/19 16:46 AST 17 U/L (14-36) 02/20/19 16:46 ALT 17 U/L (9-52) 02/20/19 16:46 Alkaline Phosphatase 85 U/L (38-126) 02/20/19 16:46 Total Protein 6.5 G/DL (6.3-8.2) 02/20/19 16:46 Albumin 3.1 g/dL (3.5-5.0) L 02/20/19 16:46 Globulin 3.4 gm/dL (2.2-3.9) 02/20/19 16:46 Albumin/Globulin Ratio 0.9 (1.0-2.1) L 02/20/19 16:46 Arterial Blood Potassium 3.7 mmol/L (3.6-5.2) 02/20/19 18:26 Urine Color Yellow (YELLOW) 02/20/19 18:08 Urine Clarity Turbid (Clear) 02/20/19 18:08 Urine pH 6.0 (5.0-8.0) 02/20/19 18:08 Ur Specific [place] 1.015 (1.003-1.030) 02/20/19 18:08 Urine Protein Negative mg/dL (NEGATIVE) 02/20/19 18:08 Urine Glucose (UA) Neg mg/dL (NEGATIVE) 02/20/19 18:08 Urine Ketones Negative mg/dL (NEGATIVE) 02/20/19 18:08 Urine Blood Small (NEGATIVE) 02/20/19 18:08 Urine Nitrate Negative (NEGATIVE) 02/20/19 18:08 Urine Bilirubin Negative (NEGATIVE) 02/20/19 18:08 Urine Urobilinogen 0.2-1.0 mg/dL (0.2-1.0) 02/20/19 18:08 Ur Leukocyte Esterase Large Jethro/uL (Negative) 02/20/19 18:08 Urine RBC (Auto) 15 /hpf (0-3) H 02/20/19 18:08 Urine WBC Clumps (Auto) Many /hpf (NONE) H 02/20/19 18:08 Urine Microscopic WBC 884 /hpf (0-5) H 02/20/19 18:08 Amorphous Sediment Rare /ul (<OCC) H 02/20/19 18:08 Urine Bacteria Occ (<OCC) H 02/20/19 18:08 Hyaline Casts 0-2 /hpf (0-2) 02/20/19 18:08 Urine Yeast (Budding) Few /hpf (NEGATIVE) H 02/20/19 18:08 Discharge Exam - Head Exam Head Exam: NORMAL INSPECTION Discharge Plan - Follow Up Plan Condition: STABLE Disposition: HOME/ ROUTINE Instructions: Low Blood Pressure (DC) Additional Instructions: follow up with dr samson 1 week Referrals: Cheli Samson MD [Family Provider] -
[2019-02-21] MEDS: Megestrol Acetate 40 mg/ml Cup PO SCH (18:02)
[2019-02-22 06:47] LABS: HEMOGLOBIN 10.8 g/dL (12.0-16.0); MEAN CELL VOLUME 81.6 fl (81.0-99.0); MEAN CORPUSCULAR HEMOGLOBIN 26.2 pg (27.0-31.0); RBC 4.14 Mil/uL (3.80-5.20); RED CELL DISTRIBUTION WIDTH 18.2 % (11.5-14.5); WHITE BLOOD COUNT 12.8 K/uL (4.8-10.8)
[2019-02-22 07:09] LABS: ALB/GLOB RATIO 0.8 (1.0-2.1); ALBUMIN 2.9 g/dL (3.5-5.0); ALT/SGPT 19 U/L (9-52); AST/SGOT 30 U/L (14-36); BLOOD UREA NITROGEN 8 mg/dl (7-17); CALCIUM 7.9 mg/dL (8.4-10.2); GFR NON-AFRICAN AMERICAN > 60
[2019-02-22] MEDS: Bisacodyl 5mg EC Tab PO SCH ×2 (09:21→16:57)
[2019-02-22] MEDS: Insulin Regular 100 units/ml SC SCH ×4 (09:22→22:57)
--- NOTE | 2019-02-22 10:59 | CP.PCM.PN ---
<Carmen Maynard - Last Filed: 02/22/19 11:07> Subjective - Date & Time of Evaluation Date of Evaluation: 02/22/19 Time of Evaluation: 10:59 - Subjective Subjective: Pt seen and examined bedside. Uncooperative with total physical exam but states she is feeling better. Objective - Vital Signs/Intake and Output Vital Signs (last 24 hours): Temp Pulse Resp BP Pulse Ox 97.6 F 99 H 20 160/92 H 99 02/22/19 08:00 02/22/19 08:00 02/22/19 08:00 02/22/19 08:00 02/22/19 08:00 - Medications Medications: Current Medications Acetaminophen (Tylenol 325mg Tab) 650 mg PO Q6 PRN PRN Reason: Pain, Mild (1-3) Last Admin: 02/21/19 20:36 Dose: 650 mg Albuterol/Ipratropium (Duoneb 3 Mg/0.5 Mg (3 Ml) Ud) 3 ml INH RQ4 PRN PRN Reason: Shortness of Breath Aspirin (Ecotrin) 81 mg PO QPM JAMAR Last Admin: 02/21/19 17:53 Dose: 81 mg Bisacodyl (Dulcolax) 5 mg PO BID JAMAR Last Admin: 02/22/19 09:21 Dose: 5 mg Carvedilol (Coreg) 3.125 mg PO DAILY PRN PRN Reason: Blood pressure >140 Dextrose (Dextrose 50% Inj) 0 ml IV STAT PRN; Protocol PRN Reason: Hypoglycemia Protocol Dextrose (Glutose 15) 0 gm PO ONCE PRN; Protocol PRN Reason: Hypoglycemia Protocol Fluconazole (Diflucan) 100 mg PO DAILY [facility]; Protocol Furosemide (Lasix) 10 mg PO DAILY JAMAR Glucagon (Glucagen Diagnostic Kit) 0 mg IM STAT PRN; Protocol PRN Reason: Hypoglycemia Protocol Home Med (Cyanocobalamin [Vitamin B12 100 Mcg Tab]) 100 mcg PO DAILY JAMAR Ceftriaxone Sodium 1 gm/ (Sodium Chloride) 100 mls @ 100 mls/hr IVPB DAILY JAMAR; Protocol Last Admin: 02/22/19 09:20 Dose: 100 mls/hr Sodium Chloride (Sodium Chloride 0.9%) 1,000 mls @ 100 mls/hr IV .Q10H JAMAR Stop: 02/23/19 10:58 Insulin Human Regular (Humulin R) 0 units SC ACHS JAMAR; Protocol Last Admin: 02/22/19 09:22 Dose: 3 unit Isosorbide Mononitrate (Imdur Er) 30 mg PO QPM [facility] Megestrol Acetate (Megace) 400 mg PO ACL [facility] Last Admin: 02/21/19 18:02 Dose: 400 mg Sitagliptin Phosphate (Januvia) 100 mg PO DAILY [facility] Last Admin: 02/22/19 09:21 Dose: 100 mg Trazodone HCl (Desyrel) 50 mg PO HS [facility] Last Admin: 02/21/19 21:33 Dose: Not Given - Labs Labs: 02/22/19 06:35 02/22/19 06:35 - Constitutional Appears: Non-toxic, No Acute Distress - Head Exam Head Exam: NORMAL INSPECTION - Respiratory Exam Respiratory Exam: NORMAL BREATHING PATTERN - Cardiovascular Exam Cardiovascular Exam: Tachycardia (99HR) - GI/Abdominal Exam GI & Abdominal Exam: Soft - Neurological Exam Neurological Exam: Alert, Awake - Psychiatric Exam Psychiatric exam: Agitated - Skin Skin Exam: Normal Color Assessment and Plan - Assessment and Plan (Free Text) Assessment: 83 yo F with pmhx of DM, htn, CHF, dementia, DLD, osteoporosis and currently bedbound presents with daughter and for hypotension and progressive decrease in PO diet. Plan: UTI -UA; large leuk esterase, WBC, occ bacteria -Ceftriaxone 1gm daily -Diflucan 100mg PO daily -U Cx: as per [facility], >100,000 yeast Hypokalemia -Na 130 -NS @ 100mls/hr -f/u labs Hypotension resolved; 121/64 Hold antihypertensives and lasix Pt on gentle hydration: D5W 1/2 NS k 20 meq at 100 mls/hr Continue to monitor vitals Dementia -chronic DM Accuchecks hypoglycemia protocol ICS low dose c/w januvia Decreased PO intake Dietition consulted dysphagia: pureed diet c/w megasce for appetite stimulant Pt with bilateral wounds Wound care nursing DVT prophylaxis SCDs <Dee Vera - Last Filed: 02/22/19 19:12> Objective - Vital Signs/Intake and Output Vital Signs (last 24 hours): Temp Pulse Resp BP Pulse Ox 98.8 F 64 20 113/74 99 02/22/19 15:56 02/22/19 15:56 02/22/19 15:56 02/22/19 15:56 02/22/19 15:56 - Medications Medications: Current Medications Acetaminophen (Tylenol 325mg Tab) 650 mg PO Q6 PRN PRN Reason: Pain, Mild (1-3) Last Admin: 02/21/19 20:36 Dose: 650 mg Albuterol/Ipratropium (Duoneb 3 Mg/0.5 Mg (3 Ml) Ud) 3 ml INH RQ4 PRN PRN Reason: Shortness of Breath Aspirin (Ecotrin) 81 mg PO QPM [facility] Last Admin: 02/22/19 17:01 Dose: 81 mg Bisacodyl (Dulcolax) 5 mg PO BID [facility] Last Admin: 02/22/19 16:57 Dose: 5 mg Carvedilol (Coreg) 3.125 mg PO DAILY PRN PRN Reason: Blood pressure >140 Cyanocobalamin (Vitamin B-12) 250 mcg PO DAILY [facility] Dextrose (Dextrose 50% Inj) 0 ml IV STAT PRN; Protocol PRN Reason: Hypoglycemia Protocol Dextrose (Glutose 15) 0 gm PO ONCE PRN; Protocol PRN Reason: Hypoglycemia Protocol Fluconazole (Diflucan) 100 mg PO DAILY [facility]; Protocol Last Admin: 02/22/19 13:08 Dose: 100 mg Furosemide (Lasix) 10 mg PO DAILY [facility] Glucagon (Glucagen Diagnostic Kit) 0 mg IM STAT PRN; Protocol PRN Reason: Hypoglycemia Protocol Ceftriaxone Sodium 1 gm/ (Sodium Chloride) 100 mls @ 100 mls/hr IVPB DAILY [facility]; Protocol Last Admin: 02/22/19 09:20 Dose: 100 mls/hr Sodium Chloride (Sodium Chloride 0.9%) 1,000 mls @ 100 mls/hr IV .Q10H JAAMR Stop: 02/23/19 10:58 Last Admin: 02/22/19 11:05 Dose: 100 mls/hr Insulin Human Regular (Humulin R) 0 units SC ACHS [facility]; Protocol Last Admin: 02/22/19 16:58 Dose: 4 unit Isosorbide Mononitrate (Imdur Er) 30 mg PO QPM [facility] Megestrol Acetate (Megace) 400 mg PO ACL [facility] Last Admin: 02/22/19 13:03 Dose: 400 mg Sitagliptin Phosphate (Januvia) 100 mg PO DAILY [facility] Last Admin: 02/22/19 09:21 Dose: 100 mg Trazodone HCl (Desyrel) 50 mg PO HS JAMAR Last Admin: 02/21/19 21:33 Dose: Not Given - Labs Labs: 02/22/19 06:35 02/22/19 06:35 Attending/Attestation - Attestation I have personally seen and examined this patient.: Yes I have fully participated in the care of the patient.: Yes I have reviewed all pertinent clinical information, including history, physical exam and plan: Yes Notes (Text): Agree with findings and plan as above.
[2019-02-22] MEDS: Sodium Chloride 0.9% 1,000 ML IV SCH ×2 (11:05→21:56)
[2019-02-22] MEDS: Megestrol Acetate 40 mg/ml Cup PO SCH (13:03)
[2019-02-23] MEDS: Sodium Chloride 0.9% 1,000 ML IV SCH (06:20)
[2019-02-23 07:06] LABS: HEMOGLOBIN 10.5 g/dL (12.0-16.0); MEAN CELL VOLUME 80.4 fl (81.0-99.0); MEAN CORPUSCULAR HEMOGLOBIN 26.1 pg (27.0-31.0); MEAN CORPUSCULAR HGB CONC 32.5 g/dL (33.0-37.0); RBC 4.01 Mil/uL (3.80-5.20); RED CELL DISTRIBUTION WIDTH 18.2 % (11.5-14.5)
[2019-02-23 07:23] LABS: ALB/GLOB RATIO 0.9 (1.0-2.1); ALBUMIN 2.8 g/dL (3.5-5.0); ALT/SGPT 18 U/L (9-52); AST/SGOT 14 U/L (14-36); BLOOD UREA NITROGEN 9 mg/dl (7-17); CALCIUM 8.2 mg/dL (8.4-10.2); GFR NON-AFRICAN AMERICAN > 60
[2019-02-23] MEDS: Insulin Regular 100 units/ml SC SCH ×4 (07:44→23:57)
[2019-02-23] MEDS: Bisacodyl 5mg EC Tab PO SCH ×2 (10:19→17:05)
[2019-02-23] MEDS: CYANOCOBALAMIN (VITAMIN B-12) 250 MCG TABLET PO SCH (10:22)
[2019-02-23] MEDS: Megestrol Acetate 40 mg/ml Cup PO SCH (10:34)
--- NOTE | 2019-02-23 13:22 | CP.PCM.DIS ---
<Carmen Maynard - Last Filed: 02/23/19 13:30> Provider - Provider Date of Admission: 02/21/19 12:00 Attending physician: Dee Vera DO Consults: 02/20/19 23:50 Case Management Referral Routine Comment: Physician Instructions: Reason For Exam: Reason for Referral: Discharge Planning Nursing Referral for Wound Care Routine Comment: Physician Instructions: Reason For Exam: angela scale protocol,healed sacral ulcer Time Spent in preparation of Discharge (in minutes): 20 Diagnosis - Discharge Diagnosis (1) Yeast UTI Status: Acute (2) Decreased oral intake Status: Resolved (3) Hypotension Status: Resolved Hospital Course - Lab Results Lab Results: Micro Results 02/20/19 18:08 Urine,Clean Catch Urine Culture - Final Yeast Species Most Recent Lab Values WBC 14.0 K/uL (4.8-10.8) H 02/23/19 05:55 RBC 4.01 Mil/uL (3.80-5.20) 02/23/19 05:55 Hgb 10.5 g/dL (12.0-16.0) L 02/23/19 05:55 Hct 32.3 % (34.0-47.0) L 02/23/19 05:55 MCV 80.4 fl (81.0-99.0) L 02/23/19 05:55 MCH 26.1 pg (27.0-31.0) L 02/23/19 05:55 MCHC 32.5 g/dL (33.0-37.0) L 02/23/19 05:55 RDW 18.2 % (11.5-14.5) H 02/23/19 05:55 Plt Count 567 K/uL (130-400) H 02/23/19 05:55 MPV 8.3 fl (7.2-11.7) 02/20/19 15:40 Neut % (Auto) 67.0 % (50.0-75.0) 02/20/19 15:40 Lymph % (Auto) 22.2 % (20.0-40.0) 02/20/19 15:40 [place] % (Auto) 5.6 % (0.0-10.0) 02/20/19 15:40 Eos % (Auto) 4.8 % (0.0-4.0) H 02/20/19 15:40 Baso % (Auto) 0.4 % (0.0-2.0) 02/20/19 15:40 Neut # (Auto) 9.3 K/uL (1.8-7.0) H 02/20/19 15:40 Lymph # (Auto) 3.1 K/uL (1.0-4.3) 02/20/19 15:40 [place] # (Auto) 0.8 K/uL (0.0-0.8) 02/20/19 15:40 Eos # (Auto) 0.7 K/uL (0.0-0.7) 02/20/19 15:40 Baso # (Auto) 0.1 K/uL (0.0-0.2) 02/20/19 15:40 Neutrophils % (Manual) 47 % (42-75) 02/20/19 15:40 Lymphocytes % (Manual) 34 % (20-50) 02/20/19 15:40 Monocytes % (Manual) 7 % (0-10) 02/20/19 15:40 Eosinophils % (Manual) 5 % (0-7) 02/20/19 15:40 Myelocytes % 7 % (0-0) H 02/20/19 15:40 Platelet Estimate Increased (NORMAL) H 02/20/19 15:40 Anisocytosis (manual) Slight 02/20/19 15:40 Macrocytosis (manual) Slight 02/20/19 15:40 pCO2 33 mm/Hg (35-45) L 02/20/19 18:26 pO2 84 mm/Hg (80-100) 02/20/19 18:26 HCO3 25.1 mmol/L (21-28) 02/20/19 18:26 ABG pH 7.46 (7.35-7.45) H 02/20/19 18:26 ABG Total CO2 24.5 mmol/L (22-28) 02/20/19 18:26 ABG O2 Saturation 99.3 % (95-98) H 02/20/19 18:26 ABG Base Excess 0.3 mmol/L (-2.0-3.0) 02/20/19 18:26 Thony Test Yes 02/20/19 18:26 ABG Potassium 3.7 mmol/L (3.6-5.2) 02/20/19 18:26 A-a O2 Difference 24.0 mm/Hg 02/20/19 18:26 Sodium 127.0 mmol/L (132-148) L 02/20/19 18:26 Chloride 99.0 mmol/L (98-107) 02/20/19 18:26 Glucose 116 mg/dL (65-105) H 02/20/19 18:26 Lactate 0.7 mmol/L (0.7-2.1) 02/20/19 18:26 FiO2 21.0 % 02/20/19 18:26 Sodium 133 mmol/l (132-148) 02/23/19 05:55 Potassium 4.4 MMOL/L (3.6-5.0) 02/23/19 05:55 Chloride 103 mmol/L (98-107) 02/23/19 05:55 Carbon Dioxide 22 mmol/L (22-30) 02/23/19 05:55 Anion Gap 12 (10-20) 02/23/19 05:55 BUN 9 mg/dl (7-17) 02/23/19 05:55 Creatinine 0.5 mg/dl (0.7-1.2) L 02/23/19 05:55 Est GFR ( Amer) > 60 02/23/19 05:55 Est GFR (Non-Af Amer) > 60 02/23/19 05:55 POC Glucose (mg/dL) 250 mg/dL (65-110) H 02/23/19 10:51 Random Glucose 215 mg/dL (65-105) H 02/23/19 05:55 Calcium 8.2 mg/dL (8.4-10.2) L 02/23/19 05:55 Total Bilirubin 0.2 mg/dl (0.2-1.3) 02/23/19 05:55 AST 14 U/L (14-36) D 02/23/19 05:55 ALT 18 U/L (9-52) 02/23/19 05:55 Alkaline Phosphatase 96 U/L (38-126) 02/23/19 05:55 Total Protein 5.9 G/DL (6.3-8.2) L 02/23/19 05:55 Albumin 2.8 g/dL (3.5-5.0) L 02/23/19 05:55 Globulin 3.1 gm/dL (2.2-3.9) 02/23/19 05:55 Albumin/Globulin Ratio 0.9 (1.0-2.1) L 02/23/19 05:55 Arterial Blood Potassium 3.7 mmol/L (3.6-5.2) 02/20/19 18:26 Urine Color Yellow (YELLOW) 02/20/19 18:08 Urine Clarity Turbid (Clear) 02/20/19 18:08 Urine pH 6.0 (5.0-8.0) 02/20/19 18:08 Ur Specific [place] 1.015 (1.003-1.030) 02/20/19 18:08 Urine Protein Negative mg/dL (NEGATIVE) 02/20/19 18:08 Urine Glucose (UA) Neg mg/dL (NEGATIVE) 02/20/19 18:08 Urine Ketones Negative mg/dL (NEGATIVE) 02/20/19 18:08 Urine Blood Small (NEGATIVE) 02/20/19 18:08 Urine Nitrate Negative (NEGATIVE) 02/20/19 18:08 Urine Bilirubin Negative (NEGATIVE) 02/20/19 18:08 Urine Urobilinogen 0.2-1.0 mg/dL (0.2-1.0) 02/20/19 18:08 Ur Leukocyte Esterase Large Jethro/uL (Negative) 02/20/19 18:08 Urine RBC (Auto) 15 /hpf (0-3) H 02/20/19 18:08 Urine WBC Clumps (Auto) Many /hpf (NONE) H 02/20/19 18:08 Urine Microscopic WBC 884 /hpf (0-5) H 02/20/19 18:08 Amorphous Sediment Rare /ul (<OCC) H 02/20/19 18:08 Urine Bacteria Occ (<OCC) H 02/20/19 18:08 Hyaline Casts 0-2 /hpf (0-2) 02/20/19 18:08 Urine Yeast (Budding) Few /hpf (NEGATIVE) H 02/20/19 18:08 - Hospital Course Hospital Course: 83 yo F with pmhx of DM, htn, CHF, dementia, DLD, osteoporosis and currently bedbound presented to [facility] ED with daughter and for hypotension and progressive decrease in PO diet. Pt was hydrated which resolved hypotension. UTI was found, >100,000 yeast on culture, and diflucan was started. Pt has increased PO intake, is vitally stable and medically stable for discharge to TCU for optimization. Discharge Exam - Head Exam Head Exam: NORMAL INSPECTION - Eye Exam Eye Exam: Normal appearance - Respiratory Exam Respiratory Exam: NORMAL BREATHING PATTERN. absent: Respiratory Distress - Cardiovascular Exam Cardiovascular Exam: REGULAR RHYTHM - GI/Abdominal Exam GI & Abdominal Exam: Soft. absent: Tenderness - Neurological Exam Neurological exam: Alert - Psychiatric Exam Psychiatric exam: Normal Affect, Normal Mood - Skin Skin Exam: Normal Color, Warm Discharge Plan - Discharge Medications Prescriptions: Cefdinir [Omnicef] 300 mg PO Q12 #10 cap Fluconazole [Diflucan] 100 mg PO DAILY #10 tab - Follow Up Plan Condition: STABLE Disposition: HOME/ ROUTINE Instructions: Low Blood Pressure (DC) Additional Instructions: follow up with dr fish 1 week Referrals: Cheli Fish MD [Family Provider] - <Marty Diez D - Last Filed: 02/23/19 17:32> Provider - Provider Date of Admission: 02/21/19 12:00 Attending physician: Dee Vera DO Consults: 02/20/19 23:50 Case Management Referral Routine Comment: Physician Instructions: Reason For Exam: Reason for Referral: Discharge Planning Nursing Referral for Wound Care Routine Comment: Physician Instructions: Reason For Exam: angela scale protocol,healed sacral ulcer 02/23/19 14:30 Psychiatry Consult Routine Comment: Consulting Provider: Tamiko Beebe Consulting Physician: Tamiko Beebe Reason for Consult: eval for need of psych medical management Hospital Course - Lab Results Lab Results: Micro Results 02/20/19 18:08 Urine,Clean Catch Urine Culture - Final Yeast Species Most Recent Lab Values WBC 14.0 K/uL (4.8-10.8) H 02/23/19 05:55 RBC 4.01 Mil/uL (3.80-5.20) 02/23/19 05:55 Hgb 10.5 g/dL (12.0-16.0) L 02/23/19 05:55 Hct 32.3 % (34.0-47.0) L 02/23/19 05:55 MCV 80.4 fl (81.0-99.0) L 02/23/19 05:55 MCH 26.1 pg (27.0-31.0) L 02/23/19 05:55 MCHC 32.5 g/dL (33.0-37.0) L 02/23/19 05:55 RDW 18.2 % (11.5-14.5) H 02/23/19 05:55 Plt Count 567 K/uL (130-400) H 02/23/19 05:55 MPV 8.3 fl (7.2-11.7) 02/20/19 15:40 Neut % (Auto) 67.0 % (50.0-75.0) 02/20/19 15:40 Lymph % (Auto) 22.2 % (20.0-40.0) 02/20/19 15:40 [place] % (Auto) 5.6 % (0.0-10.0) 02/20/19 15:40 Eos % (Auto) 4.8 % (0.0-4.0) H 02/20/19 15:40 Baso % (Auto) 0.4 % (0.0-2.0) 02/20/19 15:40 Neut # (Auto) 9.3 K/uL (1.8-7.0) H 02/20/19 15:40 Lymph # (Auto) 3.1 K/uL (1.0-4.3) 02/20/19 15:40 [place] # (Auto) 0.8 K/uL (0.0-0.8) 02/20/19 15:40 Eos # (Auto) 0.7 K/uL (0.0-0.7) 02/20/19 15:40 Baso # (Auto) 0.1 K/uL (0.0-0.2) 02/20/19 15:40 Neutrophils % (Manual) 47 % (42-75) 02/20/19 15:40 Lymphocytes % (Manual) 34 % (20-50) 02/20/19 15:40 Monocytes % (Manual) 7 % (0-10) 02/20/19 15:40 Eosinophils % (Manual) 5 % (0-7) 02/20/19 15:40 Myelocytes % 7 % (0-0) H 02/20/19 15:40 Platelet Estimate Increased (NORMAL) H 02/20/19 15:40 Anisocytosis (manual) Slight 02/20/19 15:40 Macrocytosis (manual) Slight 02/20/19 15:40 pCO2 33 mm/Hg (35-45) L 02/20/19 18:26 pO2 84 mm/Hg (80-100) 02/20/19 18:26 HCO3 25.1 mmol/L (21-28) 02/20/19 18:26 ABG pH 7.46 (7.35-7.45) H 02/20/19 18:26 ABG Total CO2 24.5 mmol/L (22-28) 02/20/19 18:26 ABG O2 Saturation 99.3 % (95-98) H 02/20/19 18:26 ABG Base Excess 0.3 mmol/L (-2.0-3.0) 02/20/19 18:26 Thony Test Yes 02/20/19 18:26 ABG Potassium 3.7 mmol/L (3.6-5.2) 02/20/19 18:26 A-a O2 Difference 24.0 mm/Hg 02/20/19 18:26 Sodium 127.0 mmol/L (132-148) L 02/20/19 18:26 Chloride 99.0 mmol/L (98-107) 02/20/19 18:26 Glucose 116 mg/dL (65-105) H 02/20/19 18:26 Lactate 0.7 mmol/L (0.7-2.1) 02/20/19 18:26 FiO2 21.0 % 02/20/19 18:26 Sodium 133 mmol/l (132-148) 02/23/19 05:55 Potassium 4.4 MMOL/L (3.6-5.0) 02/23/19 05:55 Chloride 103 mmol/L (98-107) 02/23/19 05:55 Carbon Dioxide 22 mmol/L (22-30) 02/23/19 05:55 Anion Gap 12 (10-20) 02/23/19 05:55 BUN 9 mg/dl (7-17) 02/23/19 05:55 Creatinine 0.5 mg/dl (0.7-1.2) L 02/23/19 05:55 Est GFR ( Amer) > 60 02/23/19 05:55 Est GFR (Non-Af Amer) > 60 02/23/19 05:55 POC Glucose (mg/dL) 322 mg/dL (65-110) H 02/23/19 17:07 Random Glucose 215 mg/dL (65-105) H 02/23/19 05:55 Calcium 8.2 mg/dL (8.4-10.2) L 02/23/19 05:55 Total Bilirubin 0.2 mg/dl (0.2-1.3) 02/23/19 05:55 AST 14 U/L (14-36) D 02/23/19 05:55 ALT 18 U/L (9-52) 02/23/19 05:55 Alkaline Phosphatase 96 U/L (38-126) 02/23/19 05:55 Total Protein 5.9 G/DL (6.3-8.2) L 02/23/19 05:55 Albumin 2.8 g/dL (3.5-5.0) L 02/23/19 05:55 Globulin 3.1 gm/dL (2.2-3.9) 02/23/19 05:55 Albumin/Globulin Ratio 0.9 (1.0-2.1) L 02/23/19 05:55 Arterial Blood Potassium 3.7 mmol/L (3.6-5.2) 02/20/19 18:26 Urine Color Yellow (YELLOW) 02/20/19 18:08 Urine Clarity Turbid (Clear) 02/20/19 18:08 Urine pH 6.0 (5.0-8.0) 02/20/19 18:08 Ur Specific [place] 1.015 (1.003-1.030) 02/20/19 18:08 Urine Protein Negative mg/dL (NEGATIVE) 02/20/19 18:08 Urine Glucose (UA) Neg mg/dL (NEGATIVE) 02/20/19 18:08 Urine Ketones Negative mg/dL (NEGATIVE) 02/20/19 18:08 Urine Blood Small (NEGATIVE) 02/20/19 18:08 Urine Nitrate Negative (NEGATIVE) 02/20/19 18:08 Urine Bilirubin Negative (NEGATIVE) 02/20/19 18:08 Urine Urobilinogen 0.2-1.0 mg/dL (0.2-1.0) 02/20/19 18:08 Ur Leukocyte Esterase Large Jethro/uL (Negative) 02/20/19 18:08 Urine RBC (Auto) 15 /hpf (0-3) H 02/20/19 18:08 Urine WBC Clumps (Auto) Many /hpf (NONE) H 02/20/19 18:08 Urine Microscopic WBC 884 /hpf (0-5) H 02/20/19 18:08 Amorphous Sediment Rare /ul (<OCC) H 02/20/19 18:08 Urine Bacteria Occ (<OCC) H 02/20/19 18:08 Hyaline Casts 0-2 /hpf (0-2) 02/20/19 18:08 Urine Yeast (Budding) Few /hpf (NEGATIVE) H 02/20/19 18:08 Attending/Attestation - Attestation I have personally seen and examined this patient.: Yes I have fully participated in the care of the patient.: Yes I have reviewed all pertinent clinical information, including history, physical exam and plan: Yes Notes (Text): 02/23/19 17:32 Patient seen and examined with resident. Case discussed and agreed with assessment and plan.
--- NOTE | 2019-02-23 14:32 | CP.PCM.PN ---
<Carmen Maynard - Last Filed: 02/23/19 14:38> Subjective - Date & Time of Evaluation Date of Evaluation: 02/23/19 Time of Evaluation: 14:31 - Subjective Subjective: Delay in trasnfer to TCU, pt remains on floor for now. Seen bedside, admits to feeling better and denies dysuria, SOB, CP, dizziness, nausea, vomiting and fever. Objective - Vital Signs/Intake and Output Vital Signs (last 24 hours): Temp Pulse Resp BP Pulse Ox 98.1 F 70 20 129/80 93 L 02/23/19 08:12 02/23/19 08:12 02/23/19 08:12 02/23/19 08:12 02/23/19 08:12 - Medications Medications: Current Medications Acetaminophen (Tylenol 325mg Tab) 650 mg PO Q6 PRN PRN Reason: Pain, Mild (1-3) Last Admin: 02/21/19 20:36 Dose: 650 mg Albuterol/Ipratropium (Duoneb 3 Mg/0.5 Mg (3 Ml) Ud) 3 ml INH RQ4 PRN PRN Reason: Shortness of Breath Aspirin (Ecotrin) 81 mg PO QPM [facility] Last Admin: 02/22/19 17:01 Dose: 81 mg Bisacodyl (Dulcolax) 5 mg PO BID [facility] Last Admin: 02/23/19 10:19 Dose: 5 mg Carvedilol (Coreg) 3.125 mg PO DAILY PRN PRN Reason: Blood pressure >140 Cyanocobalamin (Vitamin B-12) 250 mcg PO DAILY [facility] Last Admin: 02/23/19 10:22 Dose: 250 mcg Dextrose (Dextrose 50% Inj) 0 ml IV STAT PRN; Protocol PRN Reason: Hypoglycemia Protocol Dextrose (Glutose 15) 0 gm PO ONCE PRN; Protocol PRN Reason: Hypoglycemia Protocol Fluconazole (Diflucan) 100 mg PO DAILY [facility]; Protocol Last Admin: 02/23/19 10:19 Dose: 100 mg Furosemide (Lasix) 10 mg PO DAILY [facility] Glucagon (Glucagen Diagnostic Kit) 0 mg IM STAT PRN; Protocol PRN Reason: Hypoglycemia Protocol Ceftriaxone Sodium 1 gm/ (Sodium Chloride) 100 mls @ 100 mls/hr IVPB DAILY [facility]; Protocol Last Admin: 02/23/19 10:29 Dose: 100 mls/hr Insulin Human Regular (Humulin R) 0 units SC ACHS [facility]; Protocol Last Admin: 02/23/19 14:23 Dose: 3 unit Isosorbide Mononitrate (Imdur Er) 30 mg PO QPM [facility] Megestrol Acetate (Megace) 400 mg PO ACL [facility] Last Admin: 02/23/19 10:34 Dose: 400 mg Sitagliptin Phosphate (Januvia) 100 mg PO DAILY [facility] Last Admin: 02/23/19 10:21 Dose: 100 mg Trazodone HCl (Desyrel) 50 mg PO HS [facility] Last Admin: 02/22/19 21:55 Dose: 50 mg - Labs Labs: 02/23/19 05:55 02/23/19 05:55 - Constitutional Appears: Non-toxic, No Acute Distress - Eye Exam Eye Exam: Normal appearance - ENT Exam ENT Exam: Mucous Membranes Moist - Respiratory Exam Respiratory Exam: NORMAL BREATHING PATTERN. absent: Respiratory Distress - Cardiovascular Exam Cardiovascular Exam: REGULAR RHYTHM - GI/Abdominal Exam GI & Abdominal Exam: Soft. absent: Tenderness - Neurological Exam Neurological Exam: Alert, Awake - Psychiatric Exam Psychiatric exam: Normal Affect, Normal Mood - Skin Skin Exam: Normal Color, Warm Assessment and Plan (1) Yeast UTI Status: Acute (2) Decreased oral intake Status: Resolved (3) Hypotension Status: Resolved - Assessment and Plan (Free Text) Plan: 83 yo F with pmhx of DM, htn, CHF, dementia, DLD, osteoporosis and currently bedbound presented to [facility] ED with daughter and for hypotension and progressive decrease in PO diet. Pt was hydrated which resolved hypotension. UTI was found, >100,000 yeast on culture, and diflucan was started. Pt has increased PO intake, is vitally stable and medically stable for discharge to TCU for optimization -- pending. <Marty Diez D - Last Filed: 02/23/19 17:37> Objective - Vital Signs/Intake and Output Vital Signs (last 24 hours): Temp Pulse Resp BP Pulse Ox 97.9 F 102 H 20 137/65 95 02/23/19 16:01 02/23/19 16:01 02/23/19 16:01 02/23/19 16:01 02/23/19 16:01 - Medications Medications: Current Medications Acetaminophen (Tylenol 325mg Tab) 650 mg PO Q6 PRN PRN Reason: Pain, Mild (1-3) Last Admin: 02/21/19 20:36 Dose: 650 mg Albuterol/Ipratropium (Duoneb 3 Mg/0.5 Mg (3 Ml) Ud) 3 ml INH RQ4 PRN PRN Reason: Shortness of Breath Aspirin (Ecotrin) 81 mg PO QPM [facility] Last Admin: 02/23/19 17:06 Dose: 81 mg Bisacodyl (Dulcolax) 5 mg PO BID [facility] Last Admin: 02/23/19 17:05 Dose: 5 mg Carvedilol (Coreg) 3.125 mg PO DAILY PRN PRN Reason: Blood pressure >140 Cyanocobalamin (Vitamin B-12) 250 mcg PO DAILY [facility] Last Admin: 02/23/19 10:22 Dose: 250 mcg Dextrose (Dextrose 50% Inj) 0 ml IV STAT PRN; Protocol PRN Reason: Hypoglycemia Protocol Dextrose (Glutose 15) 0 gm PO ONCE PRN; Protocol PRN Reason: Hypoglycemia Protocol Fluconazole (Diflucan) 100 mg PO DAILY [facility]; Protocol Last Admin: 02/23/19 10:19 Dose: 100 mg Furosemide (Lasix) 10 mg PO DAILY [facility] Glucagon (Glucagen Diagnostic Kit) 0 mg IM STAT PRN; Protocol PRN Reason: Hypoglycemia Protocol Ceftriaxone Sodium 1 gm/ (Sodium Chloride) 100 mls @ 100 mls/hr IVPB DAILY [facility]; Protocol Last Admin: 02/23/19 10:29 Dose: 100 mls/hr Insulin Human Regular (Humulin R) 0 units SC ACHS [facility]; Protocol Last Admin: 02/23/19 17:10 Dose: 4 unit Isosorbide Mononitrate (Imdur Er) 30 mg PO QPM [facility] Megestrol Acetate (Megace) 400 mg PO ACL [facility] Last Admin: 02/23/19 10:34 Dose: 400 mg Sitagliptin Phosphate (Januvia) 100 mg PO DAILY [facility] Last Admin: 02/23/19 10:21 Dose: 100 mg Trazodone HCl (Desyrel) 50 mg PO HS [facility] Last Admin: 02/22/19 21:55 Dose: 50 mg - Labs Labs: 02/23/19 05:55 02/23/19 05:55 Attending/Attestation - Attestation I have personally seen and examined this patient.: Yes I have fully participated in the care of the patient.: Yes I have reviewed all pertinent clinical information, including history, physical exam and plan: Yes Notes (Text): 02/23/19 17:36 Patient seen and examined with resident. Case discussed and agreed with as araceli and plan
[2019-02-24] MEDS: Insulin Regular 100 units/ml SC SCH ×3 (06:45→18:08)
[2019-02-24 08:16] VITALS: RESP 20
--- NOTE | 2019-02-24 09:00 | CP.PCM.DIS ---
<Carmen Maynard - Last Filed: 02/24/19 09:01> Provider - Provider Date of Admission: 02/21/19 12:00 Attending physician: Dee Vera DO Consults: 02/20/19 23:50 Case Management Referral Routine Comment: Physician Instructions: Reason For Exam: Reason for Referral: Discharge Planning Nursing Referral for Wound Care Routine Comment: Physician Instructions: Reason For Exam: angela scale protocol,healed sacral ulcer Time Spent in preparation of Discharge (in minutes): 20 Diagnosis - Discharge Diagnosis (1) Yeast UTI Status: Acute (2) Decreased oral intake Status: Resolved (3) Hypotension Status: Resolved Hospital Course - Lab Results Lab Results: Micro Results 02/20/19 18:08 Urine,Clean Catch Urine Culture - Final Yeast Species Most Recent Lab Values WBC 14.0 K/uL (4.8-10.8) H 02/23/19 05:55 RBC 4.01 Mil/uL (3.80-5.20) 02/23/19 05:55 Hgb 10.5 g/dL (12.0-16.0) L 02/23/19 05:55 Hct 32.3 % (34.0-47.0) L 02/23/19 05:55 MCV 80.4 fl (81.0-99.0) L 02/23/19 05:55 MCH 26.1 pg (27.0-31.0) L 02/23/19 05:55 MCHC 32.5 g/dL (33.0-37.0) L 02/23/19 05:55 RDW 18.2 % (11.5-14.5) H 02/23/19 05:55 Plt Count 567 K/uL (130-400) H 02/23/19 05:55 MPV 8.3 fl (7.2-11.7) 02/20/19 15:40 Neut % (Auto) 67.0 % (50.0-75.0) 02/20/19 15:40 Lymph % (Auto) 22.2 % (20.0-40.0) 02/20/19 15:40 [place]y % (Auto) 5.6 % (0.0-10.0) 02/20/19 15:40 Eos % (Auto) 4.8 % (0.0-4.0) H 02/20/19 15:40 Baso % (Auto) 0.4 % (0.0-2.0) 02/20/19 15:40 Neut # (Auto) 9.3 K/uL (1.8-7.0) H 02/20/19 15:40 Lymph # (Auto) 3.1 K/uL (1.0-4.3) 02/20/19 15:40 Posey # (Auto) 0.8 K/uL (0.0-0.8) 02/20/19 15:40 Eos # (Auto) 0.7 K/uL (0.0-0.7) 02/20/19 15:40 Baso # (Auto) 0.1 K/uL (0.0-0.2) 02/20/19 15:40 Neutrophils % (Manual) 47 % (42-75) 02/20/19 15:40 Lymphocytes % (Manual) 34 % (20-50) 02/20/19 15:40 Monocytes % (Manual) 7 % (0-10) 02/20/19 15:40 Eosinophils % (Manual) 5 % (0-7) 02/20/19 15:40 Myelocytes % 7 % (0-0) H 02/20/19 15:40 Platelet Estimate Increased (NORMAL) H 02/20/19 15:40 Anisocytosis (manual) Slight 02/20/19 15:40 Macrocytosis (manual) Slight 02/20/19 15:40 pCO2 33 mm/Hg (35-45) L 02/20/19 18:26 pO2 84 mm/Hg (80-100) 02/20/19 18:26 HCO3 25.1 mmol/L (21-28) 02/20/19 18:26 ABG pH 7.46 (7.35-7.45) H 02/20/19 18:26 ABG Total CO2 24.5 mmol/L (22-28) 02/20/19 18:26 ABG O2 Saturation 99.3 % (95-98) H 02/20/19 18:26 ABG Base Excess 0.3 mmol/L (-2.0-3.0) 02/20/19 18:26 Thony Test Yes 02/20/19 18:26 ABG Potassium 3.7 mmol/L (3.6-5.2) 02/20/19 18:26 A-a O2 Difference 24.0 mm/Hg 02/20/19 18:26 Sodium 127.0 mmol/L (132-148) L 02/20/19 18:26 Chloride 99.0 mmol/L (98-107) 02/20/19 18:26 Glucose 116 mg/dL (65-105) H 02/20/19 18:26 Lactate 0.7 mmol/L (0.7-2.1) 02/20/19 18:26 FiO2 21.0 % 02/20/19 18:26 Sodium 133 mmol/l (132-148) 02/23/19 05:55 Potassium 4.4 MMOL/L (3.6-5.0) 02/23/19 05:55 Chloride 103 mmol/L (98-107) 02/23/19 05:55 Carbon Dioxide 22 mmol/L (22-30) 02/23/19 05:55 Anion Gap 12 (10-20) 02/23/19 05:55 BUN 9 mg/dl (7-17) 02/23/19 05:55 Creatinine 0.5 mg/dl (0.7-1.2) L 02/23/19 05:55 Est GFR ( Amer) > 60 02/23/19 05:55 Est GFR (Non-Af Amer) > 60 02/23/19 05:55 POC Glucose (mg/dL) 363 mg/dL (65-110) H 02/24/19 06:02 Random Glucose 215 mg/dL (65-105) H 02/23/19 05:55 Calcium 8.2 mg/dL (8.4-10.2) L 02/23/19 05:55 Total Bilirubin 0.2 mg/dl (0.2-1.3) 02/23/19 05:55 AST 14 U/L (14-36) D 02/23/19 05:55 ALT 18 U/L (9-52) 02/23/19 05:55 Alkaline Phosphatase 96 U/L (38-126) 02/23/19 05:55 Total Protein 5.9 G/DL (6.3-8.2) L 02/23/19 05:55 Albumin 2.8 g/dL (3.5-5.0) L 02/23/19 05:55 Globulin 3.1 gm/dL (2.2-3.9) 02/23/19 05:55 Albumin/Globulin Ratio 0.9 (1.0-2.1) L 02/23/19 05:55 Arterial Blood Potassium 3.7 mmol/L (3.6-5.2) 02/20/19 18:26 Urine Color Yellow (YELLOW) 02/20/19 18:08 Urine Clarity Turbid (Clear) 02/20/19 18:08 Urine pH 6.0 (5.0-8.0) 02/20/19 18:08 Ur Specific [place] 1.015 (1.003-1.030) 02/20/19 18:08 Urine Protein Negative mg/dL (NEGATIVE) 02/20/19 18:08 Urine Glucose (UA) Neg mg/dL (NEGATIVE) 02/20/19 18:08 Urine Ketones Negative mg/dL (NEGATIVE) 02/20/19 18:08 Urine Blood Small (NEGATIVE) 02/20/19 18:08 Urine Nitrate Negative (NEGATIVE) 02/20/19 18:08 Urine Bilirubin Negative (NEGATIVE) 02/20/19 18:08 Urine Urobilinogen 0.2-1.0 mg/dL (0.2-1.0) 02/20/19 18:08 Ur Leukocyte Esterase Large Jethro/uL (Negative) 02/20/19 18:08 Urine RBC (Auto) 15 /hpf (0-3) H 02/20/19 18:08 Urine WBC Clumps (Auto) Many /hpf (NONE) H 02/20/19 18:08 Urine Microscopic WBC 884 /hpf (0-5) H 02/20/19 18:08 Amorphous Sediment Rare /ul (<OCC) H 02/20/19 18:08 Urine Bacteria Occ (<OCC) H 02/20/19 18:08 Hyaline Casts 0-2 /hpf (0-2) 02/20/19 18:08 Urine Yeast (Budding) Few /hpf (NEGATIVE) H 02/20/19 18:08 - Hospital Course Hospital Course: 83 yo F with pmhx of DM, htn, CHF, dementia, DLD, osteoporosis and currently bedbound presented to [facility] ED with daughter and for hypotension and progressive decrease in PO diet. Pt was hydrated which resolved hypotension. UTI was found, >100,000 yeast on culture, and diflucan was started. Pt has increased PO intake, is vitally stable and medically stable for discharge to home with PO prescriptions. Discharge Exam - Head Exam Head Exam: NORMAL INSPECTION - Eye Exam Eye Exam: Normal appearance - ENT Exam ENT Exam: Mucous Membranes Moist - Respiratory Exam Respiratory Exam: NORMAL BREATHING PATTERN, UNREMARKABLE. absent: Respiratory Distress - Cardiovascular Exam Cardiovascular Exam: REGULAR RHYTHM - GI/Abdominal Exam GI & Abdominal Exam: Soft. absent: Tenderness - Extremities Exam Extremities exam: normal inspection - Neurological Exam Neurological exam: Alert - Psychiatric Exam Psychiatric exam: Normal Affect, Normal Mood - Skin Skin Exam: Normal Color, Warm Discharge Plan - Discharge Medications Prescriptions: Cefdinir [Omnicef] 300 mg PO Q12 #10 cap Fluconazole [Diflucan] 100 mg PO DAILY #10 tab - Follow Up Plan Condition: STABLE Disposition: HOME/ ROUTINE Instructions: Low Blood Pressure (DC) Additional Instructions: follow up with dr samson 1 week Referrals: Cheli Samson MD [Family Provider] - <Dee Vera - Last Filed: 02/24/19 09:51> Provider - Provider Date of Admission: 02/21/19 12:00 Attending physician: Dee Vera DO Consults: 02/20/19 23:50 Case Management Referral Routine Comment: Physician Instructions: Reason For Exam: Reason for Referral: Discharge Planning Nursing Referral for Wound Care Routine Comment: Physician Instructions: Reason For Exam: angela scale protocol,healed sacral ulcer Hospital Course - Lab Results Lab Results: Micro Results 02/20/19 18:08 Urine,Clean Catch Urine Culture - Final Yeast Species Most Recent Lab Values WBC 14.0 K/uL (4.8-10.8) H 02/23/19 05:55 RBC 4.01 Mil/uL (3.80-5.20) 02/23/19 05:55 Hgb 10.5 g/dL (12.0-16.0) L 02/23/19 05:55 Hct 32.3 % (34.0-47.0) L 02/23/19 05:55 MCV 80.4 fl (81.0-99.0) L 02/23/19 05:55 MCH 26.1 pg (27.0-31.0) L 02/23/19 05:55 MCHC 32.5 g/dL (33.0-37.0) L 02/23/19 05:55 RDW 18.2 % (11.5-14.5) H 02/23/19 05:55 Plt Count 567 K/uL (130-400) H 02/23/19 05:55 MPV 8.3 fl (7.2-11.7) 02/20/19 15:40 Neut % (Auto) 67.0 % (50.0-75.0) 02/20/19 15:40 Lymph % (Auto) 22.2 % (20.0-40.0) 02/20/19 15:40 Posey % (Auto) 5.6 % (0.0-10.0) 02/20/19 15:40 Eos % (Auto) 4.8 % (0.0-4.0) H 02/20/19 15:40 Baso % (Auto) 0.4 % (0.0-2.0) 02/20/19 15:40 Neut # (Auto) 9.3 K/uL (1.8-7.0) H 02/20/19 15:40 Lymph # (Auto) 3.1 K/uL (1.0-4.3) 02/20/19 15:40 Posey # (Auto) 0.8 K/uL (0.0-0.8) 02/20/19 15:40 Eos # (Auto) 0.7 K/uL (0.0-0.7) 02/20/19 15:40 Baso # (Auto) 0.1 K/uL (0.0-0.2) 02/20/19 15:40 Neutrophils % (Manual) 47 % (42-75) 02/20/19 15:40 Lymphocytes % (Manual) 34 % (20-50) 02/20/19 15:40 Monocytes % (Manual) 7 % (0-10) 02/20/19 15:40 Eosinophils % (Manual) 5 % (0-7) 02/20/19 15:40 Myelocytes % 7 % (0-0) H 02/20/19 15:40 Platelet Estimate Increased (NORMAL) H 02/20/19 15:40 Anisocytosis (manual) Slight 02/20/19 15:40 Macrocytosis (manual) Slight 02/20/19 15:40 pCO2 33 mm/Hg (35-45) L 02/20/19 18:26 pO2 84 mm/Hg (80-100) 02/20/19 18:26 HCO3 25.1 mmol/L (21-28) 02/20/19 18:26 ABG pH 7.46 (7.35-7.45) H 02/20/19 18:26 ABG Total CO2 24.5 mmol/L (22-28) 02/20/19 18:26 ABG O2 Saturation 99.3 % (95-98) H 02/20/19 18:26 ABG Base Excess 0.3 mmol/L (-2.0-3.0) 02/20/19 18:26 Thony Test Yes 02/20/19 18:26 ABG Potassium 3.7 mmol/L (3.6-5.2) 02/20/19 18:26 A-a O2 Difference 24.0 mm/Hg 02/20/19 18:26 Sodium 127.0 mmol/L (132-148) L 02/20/19 18:26 Chloride 99.0 mmol/L (98-107) 02/20/19 18:26 Glucose 116 mg/dL (65-105) H 02/20/19 18:26 Lactate 0.7 mmol/L (0.7-2.1) 02/20/19 18:26 FiO2 21.0 % 02/20/19 18:26 Sodium 133 mmol/l (132-148) 02/23/19 05:55 Potassium 4.4 MMOL/L (3.6-5.0) 02/23/19 05:55 Chloride 103 mmol/L (98-107) 02/23/19 05:55 Carbon Dioxide 22 mmol/L (22-30) 02/23/19 05:55 Anion Gap 12 (10-20) 02/23/19 05:55 BUN 9 mg/dl (7-17) 02/23/19 05:55 Creatinine 0.5 mg/dl (0.7-1.2) L 02/23/19 05:55 Est GFR ( Amer) > 60 02/23/19 05:55 Est GFR (Non-Af Amer) > 60 02/23/19 05:55 POC Glucose (mg/dL) 363 mg/dL (65-110) H 02/24/19 06:02 Random Glucose 215 mg/dL (65-105) H 02/23/19 05:55 Calcium 8.2 mg/dL (8.4-10.2) L 02/23/19 05:55 Total Bilirubin 0.2 mg/dl (0.2-1.3) 02/23/19 05:55 AST 14 U/L (14-36) D 02/23/19 05:55 ALT 18 U/L (9-52) 02/23/19 05:55 Alkaline Phosphatase 96 U/L (38-126) 02/23/19 05:55 Total Protein 5.9 G/DL (6.3-8.2) L 02/23/19 05:55 Albumin 2.8 g/dL (3.5-5.0) L 02/23/19 05:55 Globulin 3.1 gm/dL (2.2-3.9) 02/23/19 05:55 Albumin/Globulin Ratio 0.9 (1.0-2.1) L 02/23/19 05:55 Arterial Blood Potassium 3.7 mmol/L (3.6-5.2) 02/20/19 18:26 Urine Color Yellow (YELLOW) 02/20/19 18:08 Urine Clarity Turbid (Clear) 02/20/19 18:08 Urine pH 6.0 (5.0-8.0) 02/20/19 18:08 Ur Specific [place] 1.015 (1.003-1.030) 02/20/19 18:08 Urine Protein Negative mg/dL (NEGATIVE) 02/20/19 18:08 Urine Glucose (UA) Neg mg/dL (NEGATIVE) 02/20/19 18:08 Urine Ketones Negative mg/dL (NEGATIVE) 02/20/19 18:08 Urine Blood Small (NEGATIVE) 02/20/19 18:08 Urine Nitrate Negative (NEGATIVE) 02/20/19 18:08 Urine Bilirubin Negative (NEGATIVE) 02/20/19 18:08 Urine Urobilinogen 0.2-1.0 mg/dL (0.2-1.0) 02/20/19 18:08 Ur Leukocyte Esterase Large Jethro/uL (Negative) 02/20/19 18:08 Urine RBC (Auto) 15 /hpf (0-3) H 02/20/19 18:08 Urine WBC Clumps (Auto) Many /hpf (NONE) H 02/20/19 18:08 Urine Microscopic WBC 884 /hpf (0-5) H 02/20/19 18:08 Amorphous Sediment Rare /ul (<OCC) H 02/20/19 18:08 Urine Bacteria Occ (<OCC) H 02/20/19 18:08 Hyaline Casts 0-2 /hpf (0-2) 02/20/19 18:08 Urine Yeast (Budding) Few /hpf (NEGATIVE) H 02/20/19 18:08 Attending/Attestation - Attestation I have personally seen and examined this patient.: Yes I have fully participated in the care of the patient.: Yes I have reviewed all pertinent clinical information, including history, physical exam and plan: Yes Notes (Text): 02/24/19 09:51 Agree with findings and plan as above.
--- NOTE | 2019-02-24 09:09 | PQF ---
PROVIDER RESPONSE TEXT: DM with hyperglycemia REVIEWER QUERY TEXT: Diabetic Associated Manifestations Please specify any manifestations associated / due to diabetes Such as: --DM with Hyperglycemia -- Diabetes with renal manifestation -- Diabetes with neurologic manifestation -- Diabetes with ophthalmic manifestation -- Diabetes with peripheral circulatory manifestation -- Other, please specify glucose:132->236->250 POC:160->110->186->373->296->158->267 H and P includes:DM Accuchecks hypoglycemia protocol ICS low dose c/w januvia The patient's Clinical Indicators include: -- Query created by: Chloe Damon on 02/22/2019 10:26 AM Electronically signed by: Carmen Maynard 02/24/2019 9:05 AM
--- NOTE | 2019-02-24 09:09 | PQF ---
PROVIDER RESPONSE TEXT: Hypotension due to poor PO intake REVIEWER QUERY TEXT: Clarification of Clinical Diagnostic Findings Please clarify the etiology of Hypotension: i.e due to a drug(s): name of the drug if known: or dehyd ration, orthostatic or postural hypotension, or idiopathic etc. OR: Unable to determine OR: Other explanation of clinical finding ER::earlier today patient's low blood pressure was noticed and EMS brought her to the hospital. Cardiovascular: Positive for: Other (low blood pressure) (aphasia, non-communicative 1630: Patient blood pressure improved with IV fluids. labs reviewed; Elevated BUN indicates that patient is likely dehydrated so she will be admitted for d ehydration and iv f started Clinical Imp: Hypotension, Decreased oral intake 02/21: Admission order: admit to inpatient status: for dehydration/UTI H and P includes; H and P: pmhx of DM, htn, CHF, dementia, DLD, osteoporosis and currently bedbound p resents with daughter and for hypotension and progressive decrease in PO diet..Per daughter; visiting home nurse was unable to take blood pressure. Pt was noted to have decreased po diet both solids and liquids. Family reports decreased stools and u rinary output. Plan: includes Hypotension resolved; 121/64 Hold antihypertensives and lasix Pt on gentle hydration: D5W 1/2 NS k 20 meq at 100 mls/hr. Continue to monitor vitals f/u am labs Decreased PO intake Dietitian consulted dysphagia: pureed diet c/w megace for appetite stimulant The patient's Clinical Indicators include: -- Query created by: Chloe Damon on 02/22/2019 10:22 AM Electronically signed by: Carmen Maynard 02/24/2019 9:05 AM
--- NOTE | 2019-02-24 09:09 | PQF ---
PROVIDER RESPONSE TEXT: No associated diagnoses REVIEWER QUERY TEXT: Clarification of Clinical Diagnostic Findings Please clarify if there is an associated diagnosis to go aslong with the Chemistry sodium: serum sodi um:132->129->130 OR: Disagree OR:Other explanation of clinical findings IVF'S, Potassium IV The patient's Clinical Indicators include: - Query created by: Chloe Damon on 02/22/2019 10:31 AM Electronically signed by: Carmen Maynard 02/24/2019 9:05 AM
[2019-02-24] MEDS: Bisacodyl 5mg EC Tab PO SCH ×2 (11:10→18:09)
[2019-02-24] MEDS: CYANOCOBALAMIN (VITAMIN B-12) 250 MCG TABLET PO SCH (11:11)
[2019-02-24] MEDS: Megestrol Acetate 40 mg/ml Cup PO SCH (14:19)
[2019-02-24 16:19] VITALS: BP 113/73; PULSE 86; TEMP 98.6; O2SAT 96
--- NOTE | 2019-02-27 09:07 | PQF ---
PROVIDER RESPONSE TEXT: Unable to determine, chronic REVIEWER QUERY TEXT: CHF Acuity and Type A hx. of Congestive Heart Failure is documented in the H and P. Please document the type and acuity (includes probable or suspected) versus No CHF: history only and not a chronic condition Such as: Type: -- Systolic -- Diastolic -- Combined -- Other, please specify - Unable to determine Acuity: -- Acute -- Chronic -- Acute on chronic -- Other, please specify / CXR: Imp.: No active disease .Improved aeration of the lungs compared to the prior study. -Lasix oral daily The patient's Clinical Indicators include: -- Query created by: Chloe Damon on 02/22/2019 10:36 AM Electronically signed by: Carmen Maynard 02/27/2019 9:04 AM
== END 2019-02-24 21:30 | disposition home health service (06) | DRG 315 ==
LOC: H.ER 13:36 → H.ERHOLD 17:57 → H.MEDSURG1 21:15 → OBSVTOIN 02-21 12:00
PROVIDERS: ADMIT Student in an Organized Health Care Education/Training Program; ATTEND Student in an Organized Health Care Education/Training Program
DX: I95.9 Hypotension, unspecified (principal); B37.49 Other urogenital candidiasis; E11.65 Type 2 diabetes mellitus with hyperglycemia; D64.9 Anemia, unspecified; E78.00 Pure hypercholesterolemia, unspecified; F03.90 Unspecified dementia, unspecified severity, without behavioral disturbance, psychotic disturbance, mood disturbance, and anxiety; I11.0 Hypertensive heart disease with heart failure; I50.9 Heart failure, unspecified; M81.0 Age-related osteoporosis without current pathological fracture; Z74.01 Bed confinement status; Z87.01 Personal history of pneumonia (recurrent); Z88.0 Allergy status to penicillin; Z93.3 Colostomy status; R32 Unspecified urinary incontinence; Z79.84 Long term (current) use of oral hypoglycemic drugs; Z79.899 Other long term (current) drug therapy